=== PATIENT | female | born 1990 | race Caucasian/White ===

== ENCOUNTER 2021-02-04 12:17 | Emergency (ER) | payer SELFPAY ==
[2021-02-04 13:33] LABS: Urine Blood Negative (Negative); Urine Glucose Negative (Negative); Urine Protein Negative (Negative); Urine Specific Gravity 1.025 (1.005-1.030)
[2021-02-04] MEDS ORDERED: MORPHINE 4 MG/ML SYR ONE (13:36)
[2021-02-04] MEDS ORDERED: NA CHLORIDE 0.9% 1,000 ML ONE (13:36)
[2021-02-04] MEDS ORDERED: ONDANSETRON 4 MG/2 ML VIAL ONE (13:36)
[2021-02-04 13:49] LABS: Absolute Lymphocytes (CBC) 1.8 K/uL (0.7-4.9); Basophils % 0.5 % (0-1.3); Hematocrit 39.5 % (36.0-45.0); Lymphocytes % 23.1 % (15.3-44.8); MPV 9.5 fL (7.6-11.3); RBC Red Blood Cell Count 4.31 M/uL (3.86-4.86)
[2021-02-04 13:53] LABS: Urine Specific Gravity/Preg 1.025 (1.005-1.030)
--- NOTE | 2021-02-04 14:00 | RAD REPORT ---
EXAM DESCRIPTION: CT - Abdomen Pelvis W Contrast - 02/04/2021 1:46 pm CLINICAL HISTORY: Abdominal pain COMPARISON: none. TECHNIQUE: Computed axial tomography of the abdomen pelvis was obtained. 100 cc Isovue-300 was admin istered intravenously. Oral contrast was not requested which limits evaluation of bowel All CT scans are performed using dose optimization technique as appropriate and may include automated exposure control or mA/KV adjustment according to patient size. FINDINGS: Some of the images are degraded by respiratory motion artifact The liver, spleen, pancreas, adrenal and kidneys appear unremarkable. There is no evidence of diverticulitis. Normal appendix The wall of distal sigmoid colon and rectum appears thickened. No stool is present. However within th e more proximal sigmoid colon and the remainder of the colon there is a large amount stool. IMPRESSION: Thickening of the wall of the distal sigmoid colon and rectum having the appearance of i nflammation. There is a large amount of stool within the remainder of the colon. A mass is not seen w ithin the sigmoid colon but can be missed on CT. Close follow-up is recommended
[2021-02-04 14:04] LABS: ALT/SGPT 14 U/L (12-78); AST/SGOT 15 U/L (15-37); Albumin 3.8 g/dL (3.4-5.0); Alkaline Phosphatase 65 U/L (45-117); BUN Blood Urea Nitrogen 14 mg/dL (7-18); Bicarbonate 27 mmol/L (21-32); Bilirubin Direct < 0.1 mg/dL (0-0.2); Bilirubin Total 0.3 mg/dL (0.2-1.0); Glucose Level 93 mg/dL (74-106); Lipase 145 U/L (73-393); Protein, Total 7.2 g/dL (6.4-8.2); Sodium Level 142 mmol/L (136-145)
[2021-02-04] MEDS ORDERED: KETOROLAC 30 MG/ML INJ ONE (14:32)
--- NOTE | 2021-02-04 14:34 | ER ---
Nurse's Notes [facility] Name: Marcelina Dodson Age: 30 yrs Sex: Female : 1990 Arrival Date: 02/04/2021 Time: 12:19 Bed 16 Private MD: Diagnosis: Left sided colitis Presentation: 02/04 12:46 Chief complaint: Patient states: Lower abd pain for 2 weeks. +N/V with jell in stool. ll1 Coronavirus screen: Client denies travel out of the [place] in the last 14 days. At this time, the client does not indicate any symptoms associated with coronavirus-19. Ebola Screen: Patient denies travel to an Ebola-affected area in the 21 days before illness onset. Initial Sepsis Screen: Does the patient meet any 2 criteria? No. Patient's initial sepsis screen is negative. Does the patient have a suspected source of infection? Yes: Acute abdominal pain. Risk Assessment: Do you want to hurt yourself or someone else? Patient reports no desire to harm self or others. Onset of symptoms was January 22, 2022. 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 - Social history:: Smoking status: Patient reports the use of cigarette tobacco products, smokes one-half pack cigarettes per day. Screenin:50 Abuse screen: Denies threats or abuse. Nutritional screening: No deficits noted. tw2 Tuberculosis screening: No symptoms or risk factors identified. Fall Risk None identified. Assessment: 13:30 General: Appears uncomfortable, slender, well groomed, Behavior is calm, cooperative, tw2 appropriate for age. Pain: Complains of pain in abdomen. Neuro: Level of Consciousness is awake, alert, obeys commands, Oriented to person, place, time, situation. Cardiovascular: Patient's skin is warm and dry. Respiratory: Airway is patent Respiratory effort is even, unlabored, Respiratory pattern is regular, symmetrical. GI: Bowel sounds present X 4 quads. Abdomen is tender to palpation X 4 quads. : No signs and/or symptoms were reported regarding the genitourinary system. Musculoskeletal: Range of motion: intact in all extremities. 14:25 Reassessment: pt c/o no change in pain, provider notified, medicated as ordered. tw2 14:44 Reassessment: Patient appears in no apparent distress at this time. Patient and/or tw2 family updated on plan of care and expected duration. Pain level reassessed. Patient is alert, oriented x 3, equal unlabored respirations, skin warm/dry/pink. Patient states feeling better. Patient states symptoms have improved. Vital Signs: 12:46 BP 110 / 77; Pulse 78; Resp 16; Temp 98.5; Pulse Ox 100% ; Weight 58.97 kg; Height 5 ll1 ft. 4 in. (162.56 cm); Pain 10/10; 12:50 BP 140 / 90; Pulse 126; Resp 17; Pulse Ox 99% on R/A; tw2 13:50 BP 119 / 99; Pulse 133; Resp 17; Pulse Ox 97% on R/A; tw2 14:42 BP 118 / 88; Pulse 118; Resp 19; Pulse Ox 98% on R/A; tw2 12:46 Body Mass Index 22.31 (58.97 kg, 162.56 cm) ll1 ED Course: 12:19 Patient arrived in ED. wm 12:47 Triage completed. ll1 12:49 Arm band placed on Patient placed in an exam room, on a stretcher. ll1 12:50 Janet Humphreys, RN is Primary Nurse. tw2 12:50 Bed in low position. Call light in reach. Adult w/ patient. Pulse ox on. NIBP on. Warm tw2 blanket given. 13:01 Ange Bassett FNP-C is PHCP. kb 13:01 Juan Naylor MD is Attending Physician. kb 13:30 Inserted saline lock: 22 gauge in left antecubital area, using aseptic technique. Blood tw2 collected. 13:46 CT Abd/Pelvis - IV Contrast Only In Process Unspecified. EDMS 14:43 No provider procedures requiring assistance completed. IV discontinued, intact, tw2 bleeding controlled, No redness/swelling at site. Pressure dressing applied. Administered Medications: 13:30 Drug: Zofran (Ondansetron) 4 mg Route: IVP; Site: left antecubital; tw2 13:46 Follow up: Response: No adverse reaction tw2 13:32 Drug: morphine 4 mg {Note: rass 0.} Route: IVP; Site: left antecubital; tw2 13:46 Follow up: Response: No adverse reaction; Pain is unchanged, physician notified tw2 13:34 Drug: NS 0.9% 1000 ml Route: IV; Rate: 1000 ml; Site: left antecubital; tw2 14:36 Follow up: Response: No adverse reaction; IV Status: Completed infusion; IV Intake: tw2 1000ml 14:25 Drug: Ketorolac 15 mg Route: IVP; Site: Other; tr6 14:36 Follow up: Response: No adverse reaction; Pain is decreased tw2 14:35 Drug: Cipro (ciprofloxacin) 500 mg Route: PO; tw2 14:42 Follow up: Response: No adverse reaction tw2 14:36 Drug: Flagyl (metroNIDAZOLE) 500 mg Route: PO; tw2 14:42 Follow up: Response: No adverse reaction tw2 14:36 Drug: Bentyl (dicyclomine) 20 mg Route: PO; tw2 14:42 Follow up: Response: No adverse reaction tw2 14:36 Drug: Magnesium Citrate Liquid 300 ml Route: PO; tw2 14:41 Follow up: Response: No adverse reaction tw2 Intake: 14:36 IV: 1000ml; Total: 1000ml. tw2 Outcome: 14:33 Discharge ordered by MD. angel 14:43 Discharged to home ambulatory, with family. tw2 14:43 Condition: stable 14:43 Discharge instructions given to patient, family, Instructed on discharge instructions, follow up and referral plans. no drinking with medication, no driving heavy equipment, medication usage, Demonstrated understanding of instructions, follow-up care, medications, Prescriptions given X 4. 14:44 Patient left the ED. tw2 Signatures: Dispatcher [employer] EDAnge Delgado FNP-C FNP-Janet Cha RN RN tw2 Diana Salmeron RN RN ll1 Sarina Mc RN RN tr6 Annabella Wu
--- NOTE | 2021-02-04 14:34 | EDPHYS ---
Physician Documentation [facility] Name: Marcelina Dodson Age: 30 yrs Sex: Female : 1990 Arrival Date: 02/04/2021 Time: 12:19 Bed 16 Private MD: ED Physician Juan Naylor HPI: 02/04 13:16 This 30 yrs old Female presents to ER via Ambulatory with complaints of Abdominal Pain. kb 13:16 The patient presents with abdominal pain that is diffuse. Onset: The symptoms/episode kb began/occurred 3 day(s) ago. The symptoms do not radiate. Associated signs and symptoms: Pertinent positives: constipation, Pertinent negatives: nausea, vomiting, and diarrhea, fever. The symptoms are described as constant. Modifying factors: The symptoms are alleviated by nothing, the symptoms are aggravated by pressure. Severity of pain: At its worst the pain was moderate in the emergency department the pain is unchanged. The patient has experienced a previous episode. The patient has not recently seen a physician. Pt reports diffuse abd pain and constipation for a few days. States she has had this once before and was told she had inflammation in her intestines. Pt more comfortable in position, pain worse when supine. Denies fever, n/v/d. . 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 - Social history:: Smoking status: Patient reports the use of cigarette tobacco products, smokes one-half pack cigarettes per day. ROS: 13:15 Constitutional: Negative for fever, chills, and weight loss. kb 13:15 Abdomen/GI: Positive for abdominal pain, constipation, Negative for nausea, vomiting, and diarrhea. 13:15 All other systems are negative. Exam: 13:15 Constitutional: This is a well developed, well nourished patient who is awake, alert, kb and in no acute distress. Head/Face: Normocephalic, atraumatic. ENT: Moist Mucous membranes Cardiovascular: Regular rate and rhythm with a normal S1 and S2. No gallops, murmurs, or rubs. No pulse deficits. Respiratory: Respirations even and unlabored. No increased work of breathing, no retractions or nasal flaring. Skin: Warm, dry with normal turgor. Normal color. MS/ Extremity: Pulses equal, no cyanosis. Neurovascular intact. Full, normal range of motion. Neuro: Awake and alert, GCS 15, oriented to person, place, time, and situation. Moves all extremities. Normal gait. Psych: Awake, alert, with orientation to person, place and time. Behavior, mood, and affect are within normal limits. 13:15 Abdomen/GI: Inspection: abdomen appears normal, Bowel sounds: normal, in all quadrants, Palpation: soft, in all quadrants, mild abdominal tenderness, in the right upper quadrant and right lower quadrant, moderate abdominal tenderness, in the left upper quadrant and left lower quadrant. Vital Signs: 12:46 BP 110 / 77; Pulse 78; Resp 16; Temp 98.5; Pulse Ox 100% ; Weight 58.97 kg; Height 5 ll1 ft. 4 in. (162.56 cm); Pain 10/10; 12:50 BP 140 / 90; Pulse 126; Resp 17; Pulse Ox 99% on R/A; tw2 13:50 BP 119 / 99; Pulse 133; Resp 17; Pulse Ox 97% on R/A; tw2 14:42 BP 118 / 88; Pulse 118; Resp 19; Pulse Ox 98% on R/A; tw2 12:46 Body Mass Index 22.31 (58.97 kg, 162.56 cm) ll1 MDM: 13:01 Patient medically screened. kb 13:15 Data reviewed: vital signs, nurses notes. Data interpreted: Pulse oximetry: on room air kb is 100 %. Interpretation: normal. 14:31 Counseling: I had a detailed discussion with the patient and/or guardian regarding: the kb historical points, exam findings, and any diagnostic results supporting the discharge/admit diagnosis, lab results, radiology results, the need for outpatient follow up, a family practitioner, a long distance operator, to return to the emergency department if symptoms worsen or persist or if there are any questions or concerns that arise at home. ED course: Pt reports she is feeling much better after toradol and appears more comfortable. . 02/04 13:07 Order name: Basic Metabolic Panel; Complete Time: 14:10 kb 02/04 13:07 Order name: CBC with Diff; Complete Time: 13:53 kb 02/04 13:07 Order name: Hepatic Function; Complete Time: 14:10 kb 02/04 13:07 Order name: Lipase; Complete Time: 14:10 kb 02/04 13:32 Order name: Urine Dipstick-Ancillary; Complete Time: 13:39 EDMS 02/04 13:47 Order name: Urine --Ancillary (enter results) eb 02/04 13:07 Order name: CT Abd/Pelvis - IV Contrast Only; Complete Time: 14:10 kb 02/04 13:48 Order name: Urine --Ancillary; Complete Time: 13:54 EDMS 02/04 14:03 Order name: CREATININE WHOLE BLOOD; Complete Time: 14:10 EDMS 02/04 13:07 Order name: IV Saline Lock; Complete Time: 13:34 kb 02/04 13:07 Order name: Labs collected and sent; Complete Time: 13:34 kb 02/04 13:07 Order name: Urine Dipstick-Ancillary (obtain specimen); Complete Time: 13:34 kb 02/04 13:07 Order name: Urine Test (obtain specimen); Complete Time: 13:34 kb Administered Medications: 13:30 Drug: Zofran (Ondansetron) 4 mg Route: IVP; Site: left antecubital; tw2 13:46 Follow up: Response: No adverse reaction tw2 13:32 Drug: morphine 4 mg {Note: rass 0.} Route: IVP; Site: left antecubital; tw2 13:46 Follow up: Response: No adverse reaction; Pain is unchanged, physician notified tw2 13:34 Drug: NS 0.9% 1000 ml Route: IV; Rate: 1000 ml; Site: left antecubital; tw2 14:36 Follow up: Response: No adverse reaction; IV Status: Completed infusion; IV Intake: tw2 1000ml 14:25 Drug: Ketorolac 15 mg Route: IVP; Site: Other; tr6 14:36 Follow up: Response: No adverse reaction; Pain is decreased tw2 14:35 Drug: Cipro (ciprofloxacin) 500 mg Route: PO; tw2 14:42 Follow up: Response: No adverse reaction tw2 14:36 Drug: Flagyl (metroNIDAZOLE) 500 mg Route: PO; tw2 14:42 Follow up: Response: No adverse reaction tw2 14:36 Drug: Bentyl (dicyclomine) 20 mg Route: PO; tw2 14:42 Follow up: Response: No adverse reaction tw2 14:36 Drug: Magnesium Citrate Liquid 300 ml Route: PO; tw2 14:41 Follow up: Response: No adverse reaction tw2 Disposition: 17:13 Co-signature as Attending Physician, Juan Naylor MD I agree with the assessment and kdr plan of care. Disposition Summary: 02/04/21 14:33 Discharge Ordered Location: Home kb Condition: Stable kb Diagnosis - Left sided colitis kb Followup: kb - With: Emergency Department - When: As needed - Reason: Worsening of condition Followup: kb - With: Private Physician - When: 2 - 3 days - Reason: Recheck today's complaints, Continuance of care, Re-evaluation by your physician Discharge Instructions: - Discharge Summary Sheet kb - Colitis kb Forms: - Medication Reconciliation Form kb - Thank You Letter kb - Antibiotic Education kb - Prescription Opioid Use kb Prescriptions: - Cipro 500 mg Oral Tablet - take 1 tablet by ORAL route every 12 hours for 10 days; 20 tablet; Refills: 0, kb Product Selection Permitted - Flagyl 500 mg Oral Tablet - take 1 tablet by ORAL route every 8 hours for 10 days; 30 tablet; Refills: 0, kb Product Selection Permitted - Diclofenac Sodium 75 mg Oral tablet,delayed release (DR/EC) - take 1 tablet by ORAL route 2 times per day As needed; 30 tablet; Refills: 0, kb Product Selection Permitted - dicyclomine 20 mg Oral Tablet - take 1 tablet by ORAL route 4 times per day As needed; 20 tablet; Refills: 0, kb Product Selection Permitted Signatures: Dispatcher [employer] Ange Apple, NICOLE-C NICOLE-Juan Blackwood MD MD kdr Janet Humphreys RN RN tw2 Diana Salmeron RN RN ll1 Sarina Mc, RN RN tr6
[2021-02-04] MEDS ORDERED: metroNIDAZOLE 500 MG TABLET ONE (14:53)
[2021-02-04] MEDS ORDERED: MAGNESIUM CITRATE 300 ML BOT ONE (14:53)
[2021-02-04] MEDS ORDERED: CIPROFLOXACIN HCL 500 MG TAB ONE (14:53)
[2021-02-04] MEDS ORDERED: DICYCLOMINE HCL 10 MG CAP ONE (14:53)
[2021-02-04 15:10] VITALS: TEMP 98.5
[2021-02-04 15:20] VITALS: BP 118/88; O2SAT 98
== END 2021-02-04 14:44 | disposition home or self-care (01) ==
LOC: ER 12:17
DX: K51.50 Left sided colitis without complications (principal); F17.210 Nicotine dependence, cigarettes, uncomplicated; Z88.5 Allergy status to narcotic agent
CPT/HCPCS: 36415; 74177; 80048; 80076; 81003; 81025; 82565; 83690; 85025; 99284; J2405; J7030; Q9967

== ENCOUNTER 2021-04-17 13:33 | Emergency (ER) | payer SELFPAY ==
[2021-04-17 14:26] LABS: Urine Blood Negative (Negative); Urine Glucose Negative (Negative); Urine Protein 1+ (Negative); Urine Specific Gravity >=1.030 (1.005-1.030); Urine pH 5.5 (5.0-7.0)
[2021-04-17 14:26] LABS: Absolute Lymphocytes (CBC) 0.8 K/uL (0.7-4.9); Basophils % 0.6 % (0-1.3); Lymphocytes % 33.2 % (15.3-44.8); MPV 9.1 fL (7.6-11.3); RBC Red Blood Cell Count 4.42 M/uL (3.86-4.86)
[2021-04-17 14:44] LABS: Potassium 3.8 mmol/L (3.5-5.1)
[2021-04-17 14:49] LABS: ALT/SGPT 16 U/L (12-78); AST/SGOT 23 U/L (15-37); Albumin 4.1 g/dL (3.4-5.0); Alkaline Phosphatase 54 U/L (45-117); Amylase 63 U/L (25-115); Bilirubin Direct 0.1 mg/dL (0-0.2); Bilirubin Total 0.3 mg/dL (0.2-1.0); Creatine Phosphokinase 212 U/L (26-192); Lipase 237 U/L (73-393); Protein, Total 7.2 g/dL (6.4-8.2); Troponin (Emerg Dept Use Only) < 0.02 ng/mL (0.0-0.045)
[2021-04-17 14:51] LABS: Protime INR 1.04
[2021-04-17 14:54] LABS: CKMB Creatine Kinase MB < 1.0 ng/mL (1.0-3.6)
[2021-04-17 15:10] LABS: Urine Amorphous Sediment 3+ /HPF (NONE SEEN); Urine Bacteria 20-50 /HPF (<20); Urine Mucus 3+ /HPF (NONE SEEN); Urine RBC <5 /HPF (NONE SEEN)
[2021-04-17 15:33] LABS: Blood Morphology Comment NOT SEEN (NOT SEEN); Platelet Estimate DECR; White Blood Cell Scan OK (OK)
--- NOTE | 2021-04-17 15:33 | RAD REPORT ---
EXAM DESCRIPTION: Zandra Single View04/17/2021 3:21 pm CLINICAL HISTORY: cough COMPARISON: none FINDINGS: Lungs are hyperaerated. The lungs appear clear of acute infiltrate. The heart is normal size
[2021-04-17] MEDS ORDERED: NA CHLORIDE 0.9% 1,000 ML ONE (15:46)
--- NOTE | 2021-04-17 16:10 | ER ---
Nurse's Notes [facility] Name: Marcelina Dodson Age: 30 yrs Sex: Female : 1990 Arrival Date: 04/17/2021 Time: 13:36 Bed 5 Private MD: Diagnosis: Coronavirus infection, unspecified;UTI/ Urinary tract infection, site not specified Presentation: 04/17 13:53 Chief complaint: Patient states: fever up to 105.4*F that began 2 days ago, pt states aa5 "I took 800mg Ibuprofen and 2 Tylenol to bring the fever down". Pt reports burning with urination and urgency. Pt also reports cough that began 2 days ago. Pt states "my hands are swollen and they keep going numb". Pt also reports body aches. Coronavirus screen: cough unrelated to allergies, fever. Ebola Screen: Patient denies exposure to infectious person. Initial Sepsis Screen: Does the patient meet any 2 criteria? HR > 90 bpm. Does the patient have a suspected source of infection? Yes:. Risk Assessment: Do you want to hurt yourself or someone else? Patient reports no desire to harm self or others. Onset of symptoms was April 2021. 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 - Social history:: Smoking status: Patient reports the use of cigarette tobacco products, smokes one-half pack cigarettes per day. Screenin:30 Abuse screen: Denies threats or abuse. Nutritional screening: No deficits noted. ll1 Tuberculosis screening: No symptoms or risk factors identified. Fall Risk None identified. Assessment: 15:37 General: Appears uncomfortable, well groomed, Behavior is calm, cooperative, anxious. ll1 Pain: Pain does not radiate. Pain began 2-3 days ago. Cardiovascular: No deficits noted. Respiratory: No deficits noted. GI: nausea. Musculoskeletal: Reports numbness in right hand and left hand pt reports generalized body pain 10/10, states she has had body aches x 2 days, would like to have something for the pain. 16:32 Reassessment: No changes from previously documented assessment. Patient and/or family ll1 updated on plan of care and expected duration. Pain level reassessed. Vital Signs: 13:53 BP 104 / 71; Pulse 94; Resp 18 S; Temp 98.2(O); Pulse Ox 100% on R/A; Weight 58.06 kg aa5 (R); Height 5 ft. 4 in. (162.56 cm) (R); 16:28 BP 99 / 65; Pulse 69; Resp 16; ll1 13:53 Body Mass Index 21.97 (58.06 kg, 162.56 cm) aa5 ED Course: 13:36 Patient arrived in ED. as 13:46 Arm band placed on. aa5 13:56 Triage completed. aa5 14:13 Initial lab(s) drawn, by me, sent to lab. Inserted saline lock: 20 gauge in left aa5 antecubital area, using aseptic technique. Blood collected. 15:10 Ange Bassett FNP-C is PHCP. kb 15:10 Juan Naylor MD is Attending Physician. kb 15:19 Diana Salmeron, RHONA is Primary Nurse. ll1 15:21 Chest Single View XRAY In Process Unspecified. EDMS 15:22 Patient placed in an exam room, on a stretcher. ll1 16:29 No provider procedures requiring assistance completed. IV discontinued, intact, ll1 bleeding controlled, No redness/swelling at site. Pressure dressing applied. Patient maintains SpO2 saturation greater than 95% on room air. 16:31 Patient has correct armband on for positive identification. Bed in low position. Call ll1 light in reach. NIBP on. family at bedside. 16:35 COVID-19 : Document "Date of Symptom Onset" if Symptomatic. Sent. ll1 Administered Medications: 15:35 Drug: NS 0.9% 1000 ml Route: IV; Rate: 1000 ml; Site: left antecubital; 1 16:35 Follow up: IV Status: Completed infusion; IV Intake: 1000ml ll 16:11 Drug: Reglan (metoCLOPramide) 10 mg Route: IVP; Site: left antecubital; ll1 16:34 Follow up: Response: No adverse reaction; RASS: Alert and Calm (0) 1 16:11 Drug: Benadryl (diphenhydrAMINE) 12.5 mg Route: IVP; Site: left antecubital; ll1 16:34 Follow up: Response: No adverse reaction ll1 16:11 Drug: Rocephin (cefTRIAXone) 1 grams Route: IV; Rate: calculated rate; Site: left ll1 antecubital; 16:33 Follow up: Response: No adverse reaction; IV Status: Completed infusion; IV Intake: [id number] 16:12 Drug: Ketorolac 15 mg Route: IVP; Site: left antecubital; ll1 16:34 Follow up: Response: No adverse reaction ll1 Intake: 16:33 IV: 10ml; Total: 10ml. ll1 16:35 IV: 1000ml; Total: 1010ml. ll1 Outcome: 16:10 Discharge ordered by . kb 16:30 Discharged to home ambulatory. ll1 16:30 Condition: stable 16:30 Discharge instructions given to patient, family, Instructed on discharge instructions, follow up and referral plans. medication usage, Demonstrated understanding of instructions, follow-up care, medications, worsening of symptoms. Prescriptions given X 1. 16:36 Patient left the ED. ll1 Signatures: Dispatcher [employer] EDMS Ange Bassett, INSTRUMENT PERSON-C NICOLE-Macrina Geronimo Audri RN RN aa5 Diana Salmeron RN RN ll1
--- NOTE | 2021-04-17 16:11 | EDPHYS ---
Physician Documentation [facility] Name: Marcelina Dodson Age: 30 yrs Sex: Female : 1990 Arrival Date: 04/17/2021 Time: 13:36 Bed 5 Private MD: ED Physician Juan Naylor HPI: 04/17 16:25 This 30 yrs old Female presents to ER via Ambulatory with complaints of kb Fever, Chest Pain, Cough, Hand Swelling. 16:25 The patient or guardian reports cough, that is intermittent, described as mild, flu kb symptoms, low-grade fever, myalgias. Onset: The symptoms/episode began/occurred 2 day(s) ago. Severity of symptoms: At their worst the symptoms were moderate, in the emergency department the symptoms are unchanged. Modifying factors: The symptoms are alleviated by nothing, the symptoms are aggravated by nothing. Associated signs and symptoms: Pertinent positives: fever. The patient has not experienced similar symptoms in the past. The patient has not recently seen a physician. Pt reports cough, headache, bodyaches, fever for 2 days. Was recently exposed to covid by multiple people at a , as well as her brother. 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 - Social history:: Smoking status: Patient reports the use of cigarette tobacco products, smokes one-half pack cigarettes per day. ROS: 16:22 Cardiovascular: Negative for chest pain, palpitations, and edema. kb 16:22 Constitutional: Positive for body aches, chills, fatigue, fever, malaise. 16:22 Respiratory: Positive for cough, Negative for dyspnea on exertion, hemoptysis, orthopnea, pleurisy, shortness of breath, sputum production, wheezing. 16:22 : Positive for burning with urination. 16:22 Neuro: Positive for headache. 16:22 All other systems are negative. Exam: 16:23 Constitutional: This is a well developed, well nourished patient who is awake, alert, kb and in no acute distress. Head/Face: Normocephalic, atraumatic. ENT: Moist Mucous membranes Respiratory: Respirations even and unlabored. No increased work of breathing, no retractions or nasal flaring. Skin: Warm, dry with normal turgor. Normal color. MS/ Extremity: Pulses equal, no cyanosis. Neurovascular intact. Full, normal range of motion. Neuro: Awake and alert, GCS 15, oriented to person, place, time, and situation. Moves all extremities. Normal gait. Psych: Awake, alert, with orientation to person, place and time. Behavior, mood, and affect are within normal limits. 16:23 Abdomen/GI: Inspection: abdomen appears normal, Palpation: soft, in all quadrants, mild abdominal tenderness, in the right lower quadrant. Vital Signs: 13:53 BP 104 / 71; Pulse 94; Resp 18 S; Temp 98.2(O); Pulse Ox 100% on R/A; Weight 58.06 kg aa5 (R); Height 5 ft. 4 in. (162.56 cm) (R); 16:28 BP 99 / 65; Pulse 69; Resp 16; ll1 13:53 Body Mass Index 21.97 (58.06 kg, 162.56 cm) aa5 MDM: 15:28 Patient medically screened. kb 16:09 Data reviewed: vital signs, nurses notes. Data interpreted: Pulse oximetry: on room air kb is 100 %. Interpretation: normal. Counseling: I had a detailed discussion with the patient and/or guardian regarding: the historical points, exam findings, and any diagnostic results supporting the discharge/admit diagnosis, lab results, radiology results, the need for outpatient follow up, a family practitioner, to return to the emergency department if symptoms worsen or persist or if there are any questions or concerns that arise at home. 04/17 13:58 Order name: COVID-19 : Document "Date of Symptom Onset" if Symptomatic. 04/17 14:00 Order name: CBC with Diff; Complete Time: 15:34 04/17 14:00 Order name: Chem 7; Complete Time: 14:57 04/17 14:02 Order name: Amylase, Serum 04/17 14:02 Order name: Blood Culture Adult (2) 04/17 14:02 Order name: CPK; Complete Time: 14:57 04/17 14:02 Order name: Ckmb; Complete Time: 14:57 [facility] 04/17 14:02 Order name: LFT's; Complete Time: 14:57 [facility] 04/17 14:02 Order name: Lactate; Complete Time: 14:57 [facility] 04/17 14:02 Order name: Lipase; Complete Time: 14:57 [facility] 04/17 14:02 Order name: Procalcitonin; Complete Time: 15:33 [facility] 04/17 14:02 Order name: Protime (+inr); Complete Time: 14:57 [facility] 04/17 14:02 Order name: Ptt, Activated; Complete Time: 14:57 [facility] 04/17 14:02 Order name: Troponin (emerg Dept Use Only); Complete Time: 14:57 [facility] 04/17 14:02 Order name: Urine Microscopic Only; Complete Time: 15:13 [facility] 04/17 14:02 Order name: Chest Single View XRAY; Complete Time: 15:34 [facility] 04/17 14:03 Order name: Amylase; Complete Time: 14:57 [facility] 04/17 14:09 Order name: Flu; Complete Time: 15:28 [facility] 04/17 14:25 Order name: Urine Dipstick-Ancillary; Complete Time: 14:57 [facility] 04/17 14:25 Order name: Urine --Ancillary (enter results) 04/17 14:26 Order name: Urine --Ancillary; Complete Time: 15:04 [facility] 04/17 15:10 Order name: Urine Culture [facility] 04/17 15:33 Order name: CBC Smear Scan; Complete Time: 15:34 [facility] 04/17 16:09 Order name: SARS-COV-2 RT PCR; Complete Time: 16:11 [facility] 04/17 13:59 Order name: Urine Dipstick-Ancillary (obtain specimen); Complete Time: 14:25 [facility] 04/17 13:59 Order name: Urine Test (obtain specimen); Complete Time: 14:25 [facility] 04/17 14:02 Order name: IV Saline Lock - Large Bore; Complete Time: 14:13 [facility] 04/17 14:02 Order name: Labs collected and sent; Complete Time: 14:13 [facility] 04/17 15:45 Order name: Vital Signs; Complete Time: 16:35 kb Administered Medications: 15:35 Drug: NS 0.9% 1000 ml Route: IV; Rate: 1000 ml; Site: left antecubital; ll1 16:35 Follow up: IV Status: Completed infusion; IV Intake: 1000ml ll1 16:11 Drug: Reglan (metoCLOPramide) 10 mg Route: IVP; Site: left antecubital; ll1 16:34 Follow up: Response: No adverse reaction; RASS: Alert and Calm (0) ll1 16:11 Drug: Benadryl (diphenhydrAMINE) 12.5 mg Route: IVP; Site: left antecubital; ll1 16:34 Follow up: Response: No adverse reaction ll1 16:11 Drug: Rocephin (cefTRIAXone) 1 grams Route: IV; Rate: calculated rate; Site: left ll1 antecubital; 16:33 Follow up: Response: No adverse reaction; IV Status: Completed infusion; IV Intake: [id number] 16:12 Drug: Ketorolac 15 mg Route: IVP; Site: left antecubital; ll1 16:34 Follow up: Response: No adverse reaction ll1 Disposition: 19:30 Co-signature as Attending Physician, Juan Naylor MD I agree with the assessment and kdr plan of care. Disposition Summary: 04/17/21 16:10 Discharge Ordered Location: Home kb Condition: Stable kb Diagnosis - Coronavirus infection, unspecified kb - UTI/ Urinary tract infection, site not specified kb Followup: kb - With: Emergency Department - When: As needed - Reason: Worsening of condition Followup: kb - With: Private Physician - When: 2 - 3 days - Reason: Recheck today's complaints, Continuance of care, Re-evaluation by your physician Discharge Instructions: - Discharge Summary Sheet kb - Urinary Tract Infection, Adult, [id number] kb - COVID-19 kb Forms: - Medication Reconciliation Form kb - Thank You Letter kb - Antibiotic Education kb - Prescription Opioid Use kb Prescriptions: - Macrobid 100 mg Oral Capsule - take 1 capsule by ORAL route every 12 hours for 7 days; 14 capsule; Refills: 0, kb Product Selection Permitted Signatures: Dispatcher [employer] EDAnge Delgado, Juan Callahan MD MD kdr Calderon, Audri RN RN aa5 Diana Salmeron RN RN ll1 Corrections: (The following items were deleted from the chart) 15:15 13:59 CORONAVIRUS ordered. EDMS EDMS 16:14 15:39 Abdomen Pelvis W Con+CT.RAD.BRZ ordered. EDMS EDMS 16:24 16:23 Abdomen/GI: Inspection: abdomen appears normal, Bowel sounds: normal, Palpation: kb soft, in all quadrants, mild abdominal tenderness, in the right lower quadrant, kb
[2021-04-17] MEDS ORDERED: METOCLOPRAMIDE 10 MG/2mL INJ ONE (16:14)
[2021-04-17] MEDS ORDERED: CEFTRIAXONE 1000 MG/VIAL ONE (16:14)
[2021-04-17] MEDS ORDERED: DIPHENHYDRAMINE 50 MG/ML VIAL ONE (16:14)
[2021-04-17] MEDS ORDERED: KETOROLAC 30 MG/ML INJ ONE (16:15)
[2021-04-17 17:18] VITALS: TEMP 98.2; O2SAT 100
[2021-04-17 17:19] VITALS: BP 99/65
== END 2021-04-17 16:36 | disposition home or self-care (01) ==
LOC: ER 13:33
DX: U07.1 COVID-19 (principal); N39.0 Urinary tract infection, site not specified; F17.210 Nicotine dependence, cigarettes, uncomplicated; Z88.5 Allergy status to narcotic agent
CPT/HCPCS: 36415; 71045; 80048; 80076; 81003; 81015; 81025; 82150; 82550; 82553; 83605; 83690; 84145; 84484; 85025; 85610; 85730; 87040; 87086; 87088; 87804; 96361; 96365; 96375; 99284; J1200; J2765; J7030; U0003

== ENCOUNTER 2022-04-17 20:20 | Emergency (ER) | payer SELFPAY ==
--- OUTSIDE RECORDS SUMMARY | 2022-04-17 20:26 | XMS REPORT | Continuity of Care Document ---
:1990 Author Organization [facility] t Address [address] [place] [address] Care Team Providers Name Role Phone ELIE NASH Primary Care Physician Unavailable JULI CESPEDES Attending Clinician Unavailable Tatum Shabazz Attending Clinician Abdulaziz Epstein MD Attending Clinician Nancy Hicks MD Attending Clinician [phone] Juli Cespedes MD Attending Clinician Marc JHAVERI Attending Clinician Unavailable Marc Shaw Attending Clinician Tania Hatch Attending Clinician Greta Subramanian Attending Clinician Pcp, Patient Does Not Have A Attending Clinician [phone] UNKNOWN, ATTENDING Attending Clinician Unavailable TABITHA REED Attending Clinician Unavailable thomas Attending Clinician Unavailable Nancy Hicks MD Admitting Clinician [phone] NANCY HICKS Admitting Clinician Unavailable thomas Admitting Clinician Unavailable Payers Payer Name Policy Type Policy Number Effective Date Expiration Date Orion acosta [id number] 2015 University o f [id number] 00:00:00 [place] [facility] 5-PresentP O Branch [address] [place] [address] [id number] Problems Condition Condition Condition Status Onset Resolution Last Treating Co mments Source Name Details Category Date Date Treatment Clinician Date Bradycardi Bradycardi Disease Active U nivers a a 9-11 ity of 00:00: Medical Branch Hypotensio Hypotensio Disease Active U nivers n n - ity of 00:00: Medical Branch Hypothyroi Hypothyroi Disease Active U nivers dism dism - ity of 00:00: [place] [facility] Elevated Elevated Disease Active Unive rs brain brain 04-11 ity of natriureti natriureti 00:[place] c peptide c peptide 00 Medi jai (BNP) (BNP) Branch level level Cigarette Cigarette Disease Active Uni vers smoker smoker 04-11 ity of 00:00: Medical Branch Syncope, Syncope, Disease Active Unive rs unspecifie unspecifie 04-10 it y of d syncope d syncope 00:[place] type type 00 [place] No known No known Disease Unive rs active active ity of problems problems [facility] Allergies, Adverse Reactions, Alerts Allergy Allergy Status Severity Reaction(s) Onset Inactive Treating Comm ents Source Name Type Date Date Clinician DEXTROAM DRUG Active Other-Cmnt Univ ers PHETAMIN 9-10 ity of E-AMPHET 00:00: [place] AMINE 00 Medical Branch Dextroam Propensi Active Other - See U nivers phetamin ty to comments 9-10 ity of e-Amphet adverse 00:00: [place] amine reaction 00 Medical s Branch TRAMADOL DRUG Active Rash Univers INGREDI - ity of 00:00: [place] [facility] Tramadol Propensi Active Rash Univer s ty to - ity of adverse 00:00: [place] reaction 00 Medical s Branch NO KNOWN Drug Active Univers ALLERGIE Class ity of S [facility] Social History Social Habit Start Date Stop Date Quantity Comments Source History of tobacco Passive smoker Un iversity of use [facility] Cigarettes smoked 2022-04-13 2022-04-13 Univers ity of current (pack per 00:00:00 00:00:00 [place] ) - Reported Branch Tobacco use and 2022-04-13 2022-04-13 Smokeless Universit y of exposure 00:00:00 00:00:00 tobacco non-user [facility] Alcohol intake 2022-04-13 2022-04-13 0 /d University of 00:00:00 00:00:00 [facility] Exposure to 2022-03-31 2022-04-10 Not sure [facility] SARS-CoV-2 (event) 00:00:00 08:34:00 [facility] Sex Ass[birth year] At [birth year] Universit y of 00:00:00 00:00:00 [facility] Smoking Status Start Date Stop Date Source Smokes tobacco daily 2022-04-13 00:00:00 Univers ity of [facility] Medications Ordered Filled Start Stop Current Ordering Indication Dosage Frequency Signature Comments Components Source Medication Medication Date Date Medication? Clinician (SIG) Name Name levothyroxi Yes [id number] 100ug Take 1 Univers ne 100 mcg 17 tablet by ity of tablet 00:00: mouth [place] 00 every Medical morning. Branch amphetamine Yes 25mg Take 25 mg Univers -dextroamph 16 by mouth ity of etamine 11:43: every [place] (ADDERALL 45 morning. Medica l XR) 25 mg Branch 24 hr capsule ketorolac No 30mg 30 mg, Unive rs (TORADOL) 04-16 Slow IV ity of injection 03:45: 02:55 Push, [place] 30 mg 00 :00 ONCE, 1 Medical dose, On Branch Alivia 04/15/22 at 2245, Routine NaCl 0.9% No 1000mL at 250 Uni vers (NS) bolus 04-15 09-15 mL/hr, ity of infusion 21:00: 21:30 1,000 mL, [place] 1,000 mL 00 :36 IV Medical Piggyback, Branch ONCE, 1 dose, On [place] 04/15/22 at 1600, FLY ketorolac 2021- No 30mg 30 mg, Unive rs (TORADOL) 04-15 Slow IV ity of injection 18:45: 18:02 Push, [place] 30 mg 00 :00 ONCE, 1 Medical dose, On Branch Alivia 04/15/22 at 1345, Routine pantoprazol Yes 40mg 40 mg, Univ ers e 04-15 Oral, ity of (PROTONIX) 17:30: DAILY, [place] EC tablet 00 First dose Medi jai 40 mg on Alivia Branch 04/15/22 at 1230, Until Discontinu ed, Routine gadobenate 2021- No [id number] .2mL/kg 11.3 mL Univers dimeglumine 04-15 (0.2 mL/kg i ty of (MULTIHANCE 16:00: 15:36 ?56.5 kg), [place] -20 mL) 00 :00 Intravenou Medica l injection s, ONCE, 1 Bran ch 11.3 mL dose, On [place] 04/15/22 at 1100, Routine acetaminoph Yes 1{tbl} 1 tablet, Univers en-codeine 04-15 Oral, ity of (TYLENOL 12:30: Q4HPRN, [place] #3) 300-30 26 Starting Medic al mg tablet 1 on Alivia Branch tablet 04/15/22 at 0730, Until Discontinu ed, Routine, Pain (scale 4-6) HYDROcodone Yes 1{tbl} 1 tablet, Univers -acetaminop 04-15 Oral, ity of hen (NORCO 12:30: Q4HPRN, [place] 5) 5-325 mg 16 Starting Medi jai tablet 1 on [place] Branch tablet 04/15/22 at 0730, Until Discontinu ed, Routine, Pain (scale 7-10) sennosides- Yes 1{tbl} 1 tablet, Univers docusate 04-15 Oral, ity of sodium 02:00: DAILY, [place] (SENOKOT-S) 00 First dose Me dical 8.6-50 mg on Tue per tablet 04/14/22 at 1 tablet 2100, Until Discontinu ed, Routine ketorolac 2021- No 30mg 30 mg, Unive rs (TORADOL) 04-14 Slow IV ity of injection 20:45: 20:48 Push, [place] 30 mg 00 :00 ONCE, 1 Medical dose, On Branch Tue04/14/22 at 1545, Routine lactated 2021- No 1000mL at 999 Univ ers ringers IV 04-14 mL/hr, ity of infusion 18:00: 18:00 1,000 mL, [place] 1,000 mL 00 :00 Intravenou Medic al s, ONCE, 1 Branch dose, On Tue04/14/22 at 1300, Routine polyethylen 2021- No 17g 17 g, [facility] ers e glycol 04-14 Oral, ity of 3350 powder 14:00: 01:50 DAILY, [place] as 17 g 00 :52 First dose Medical on Tue04/14/22 at 0900, Until Discontinu ed, Routine magnesium No 4g 4 g, IV [facility] ers sulfate in 04-14 Piggyback, it y of water 4 13:30: 14:00 ONCE, 1 [place] gram/50 mL 00 :00 dose, On Medic al (8 %) IV Tue Piggyback 4 04/14/22 at g 0830, Routine KCL 2021- No 40meq 40 mEq, Univers (KLOR-CON 04-14 Oral, ity of M20) tablet 13:30: 13:19 ONCE, 1 [place] 40 mEq 00 :00 dose, On Medical Tue Branch 04/14/22 at 0830, Routine cyclobenzap Yes 10mg 10 mg, Univ ers rine 04-13 Oral, TID, ity of (FLEXERIL) 19:00: First dose [place] tablet 10 00 (after Medical mg last Branch modificati on) on Tue04/13/22 at 1400, Until Discontinu ed, Routine levothyroxi Yes 100ug 100 mcg, U nivers ne 04-13 Oral, ity of (SYNTHROID) 11:00: QAM-0600, [place] tablet 100 00 First dose Med ical mcg (after Branch last modificati on) on Tue04/13/22 at 0600, Until Discontinu ed, Routine cyclobenzap No 5mg 5 mg, Univ ers rine 04-12 Oral, TID, ity of (FLEXERIL) 16:45: 17:51 First dose [place] tablet 5 mg 00 :10 on Mon Medica l 04/12/22 at Branch 1145, Until Discontinu ed, Routine DOPamine No 2.5ug/k 2.5-7.5 Un jg 800 mg/500 04-12 g/min mcg/kg/min i ty of mL (1,600 16:30: 01:51 ?55.5 kg [place] mcg/mL) 55 :19 ( Medica l infusion .6094 [place] RTU mL/hr, rounded to 5.2-15.61 mL/hr), IV Infusion, TITRATE, Target SBP > 90, OK to keep HR > 40 if SBP at target and patient comfortabl e, Starting on Tue04/12/22 at 1130
In itiate infusion at 2.5 mcg/kg/min . &nb sp;Increas e by 2.5 mcg/kg/min every 1 minute to 5 minutes as needed to reach and maintain goal blood pressure.& nbsp;&nbsp ;Maximum dose = 20 mcg/kg/min . If goal not maintained at maximum allowed dose, contact prescriber . &nb sp;Adminis ter only one peripheral intravenou s vasopresso r at a time.
lidocaine No 5mL 5 mL, Univer s 1% (PF) 04-12 Subcutaneo ity o f (XYLOCAINE) 16:30: 17:45 us, ONCE, [place] injection 5 00 :00 1 dose, On Me dical mL Tue04/12/22 at 1130, Routine NaCl 0.9% Yes 10mL 10 mL, Univer s (NS) 04-12 Slow IV ity of injection 16:20: Push, PRN, [place] 10 mL 14 Starting Medical on Tue04/12/22 at 1120, Until Discontinu ed, Routine, line maintenanc e morpHINE (2 2021- No 2mg 2 mg, Slow Univers mg/mL) 04-12 IV Push, ity of injection 2 14:49: 12:30 Q6HPRN, [place] mg 56 :42 Starting Medical on [facility] Branch 04/12/22 at 0949, Until Alivia 04/15/22 at 0730, Routine, Pain (scale 7-10) HYDROcodone 2021- No 1{tbl} 1 tablet, Univers -acetaminop 04-12 Oral, ity of hen (NORCO 14:49: 12:30 Q4HPRN, [place] 5) 5-325 mg 30 :42 Starting Medi jai tablet 1 on [facility] Branch tablet 04/12/22 at 0949, Until Alivia 04/15/22 at 0730, Routine, Pain (scale 4-6) cholecalcif Yes 2000U 2,000 Univ ers genevieve 04-12 Units, ity of (vitamin 14:00: Oral, [place] D3) tablet 00 DAILY, Medical 2,000 Units First dose Br anch (after last modificati on) on Tue04/12/22 at 0900, Until Discontinu ed, Routine thiamine Yes 100mg 100 mg, Unive rs (VITAMIN 04-12 Oral, ity of B1) tablet 14:00: DAILY, [place] 100 mg 00 First dose Medical on [facility] Branch 04/12/22 at 0900, Until Discontinu ed, Routine levothyroxi 2021- No 100ug 100 mcg, Univers ne 04-12 Intravenou ity of (SYNTHROID) 13:45: 13:52 s, ONCE, 1 [place] injection 00 :00 dose, On Medica l 100 mcg [facility] Branch 04/12/22 at 0845, Routine levothyroxi No 50ug 50 mcg, Un jg ne 04-12 Oral, ity of (SYNTHROID) 11:00: 16:20 QAM-0600, [place] tablet 50 00 :48 First dose Medi jai mcg (after Branch last modificati on) on [facility] 04/12/22 at 0600, Until Discontinu ed, Routine morpHINE (2 No 2mg 2 mg, Slow Univers mg/mL) 04-12 IV Push, ity of injection 2 09:14: 09:27 PRN, 1 [place] mg 26 :00 dose, Medical Starting Branch on [facility] 04/12/22 at 0414, Until Tue04/12/22 at 0427, Routine, headache DOPamine 2021- No 2.5ug/k 2.5-7.5 Un jg 800 mg/500 04-12 g/min mcg/kg/min i ty of mL (1,600 02:53: 16:32 ?55.5 kg [place] mcg/mL) 09 :25 ( Medica l infusion .6094 Branch RTU mL/hr, rounded to 5.2-15.61 mL/hr), IV Infusion, TITRATE, SBP Goal 100-140 mmHg, HR > 60, Starting on [place] 04/11/22 at 2153
In itiate infusion at 2.5 mcg/kg/min . &nb sp;Increas e by 2.5 mcg/kg/min every 1 minute to 5 minutes as needed to reach and maintain goal blood pressure.& nbsp;&nbsp ;Maximum dose = 20 mcg/kg/min . If goal not maintained at maximum allowed dose, contact prescriber . &nb sp;Adminis ter only one peripheral intravenou s vasopresso r at a time.
ibuprofen 2021- No 600mg 600 mg, Uni vers (IBU) 04-12 Oral, ity of tablet 600 02:52: 15:41 TIDPRN, [place] mg 32 :06 Starting Medical on [place] Branch 04/11/22 at 2152, Until [facility] 04/12/22 at 1041, Routine, Pain (scale 1-3) DOPamine 2021- No 2.5ug/k 2.5-7.5 Un jg 800 mg/500 04-12 g/min mcg/kg/min i ty of mL (1,600 02:39: 02:53 ?55.5 kg [place] mcg/mL) 25 :28 ( Medica l infusion .6094 Branch RTU mL/hr, rounded to 5.2-15.61 mL/hr), IV Infusion, TITRATE, SBP Goal 100-140 mmHg, HR > 60, Starting on Tue04/11/22 at 2139
In itiate infusion at 2.5 mcg/kg/min . &nb sp;Increas e by 2.5 mcg/kg/min every 1 minute to 5 minutes as needed to reach and maintain goal blood pressure.& nbsp;&nbsp ;Maximum dose = 7.5 mcg/kg/min . If goal not maintained at maximum allowed dose, contact prescriber . &nb sp;Adminis ter only one peripheral intravenou s vasopresso r at a time.
hydrocortis No 50mg 50 mg, Uni vers one sod 04-11 Intravenou ity o f succ 22:00: 09:27 s, Q6H, 3 [place] (CORTEF) 00 :00 doses, Medical injection First dose Bran ch 50 mg on 04/11/22 at 1700, Last dose on Tue04/12/22 at 0000, 2 mL proCHLORper Yes 10mg 10 mg, Univ ers azine 04-11 Slow IV ity of (COMPAZINE) 21:28: Push, [place] injection 31 Q6HPRN, Medical 10 mg Starting Branch on [place] 04/11/22 at 1628, Until Discontinu ed, Routine, Nausea and Vomiting (N/V), alternate with ondansetro n levothyroxi No 50ug 50 mcg, Un jg ne 04-11 Intravenou ity of (SYNTHROID) 17:15: 17:53 s, ONCE, 1 [place] injection 00 :00 dose, On Medica l 50 mcg [place] Branch 04/11/22 at 1215, Routine clonazePAM Yes 2mg 2 mg, Univer s (KLONOPIN) 04-11 Oral, BID, ity of tablet 2 mg 16:15: First dose [place] 00 (after Medical last Branch modificati on) on [place] 04/11/22 at 1115, Until Discontinu ed, Routine cosyntropin No 250ug 250 mcg, Univers (CORTROSYN) 04-11 Slow IV ity of injection 15:45: 16:40 Push, [place] 250 mcg 00 :00 ONCE, 1 Medical dose, On [facility] 04/11/22 at 1045, Routine enoxaparin Yes 30mg 30 mg, Unive rs (LOVENOX) 04-11 Subcutaneo ity of injection 14:00: us, DAILY, [place] 30 mg 00 First dose Medical on [facility] 04/11/22 at 0900, Until Discontinu ed, Routine DOPamine 2021- No 5ug/kg/ 5 Unive rs 800 mg/500 04-11 min mcg/kg/min it y of mL (1,600 12:00: 01:40 ?55.5 kg [place] mcg/mL) 00 :01 (10.4063 Medical infusion mL/hr, Branch RTU rounded to 10.41 mL/hr), IV Infusion, CONTINUOUS , Starting on [place] 04/11/22 at 0700 levothyroxi 2021- No 25ug 25 mcg, Un jg ne 04-11 Oral, ity of (SYNTHROID) 11:00: 11:19 QAM-0600, [place] tablet 25 00 :00 1 dose, Medical mcg First dose Branch on [place] 04/11/22 at 0600, Routine atropine No .5mg 0.5 mg, IV Un jg injection 04-11 Push, ity of 0.5 mg 06:00: 05:02 ONCE, 1 [place] 00 :00 dose, On [facility] 04/11/22 at 0100, Routine ondansetron Yes 4mg 4 mg, Slow Univers (ZOFRAN 04-11 IV Push, ity of (PF)) 05:41: Q6HPR, [place] injection 4 54 Starting Medi jai mg on [facility] 04/11/22 at 0041, Until Discontinu ed, Routine, Nausea and Vomiting (N/V) butalbital- 2021- No 1{tbl} 1 tablet, Univers acetaminoph 04-11 Oral, ity of en-caff 01:18: 16:35 Q4HPRN, [place] (ESGIC) 20 :31 Starting Medical 50-325-40 on Sat Branch mg tablet 1 04/10/22 at tablet 2018, Until 04/12/22 at 1135, Routine, headache clonazePAM 2021- No 1mg 1 mg, Unive rs (KLONOPIN) 04-10 Oral, BID, it y of tablet 1 mg 20:45: 05:01 First dose [place] 00 :41 on [facility] Medical 04/10/22 at Branch 1545, Until Discontinu ed, Routine acetaminoph Yes 650mg 650 mg, Un jg en 04-10 Oral, ity of (TYLENOL) 18:51: Q6HPRN, [place] tablet 650 25 Starting Medic al mg on [facility] Branch 04/10/22 at 1351, Until Discontinu ed, Routine, Pain (scale 1-3) ketorolac 2021- No 15mg 15 mg, Unive rs (TORADOL) 04-10 Slow IV ity of injection 18:50: 15:41 Push, [place] 15 mg 26 :06 Q6HPRN, Medical Starting Branch on [facility] 04/10/22 at 1350, Until 04/12/22 at 1041, Routine, Pain (scale 4-6) iopamidol 2021- No [id number] 70mL 70 mL, Univers (ISOVUE 04-10 Intravenou ity o f 370-500 mL) 18:15: 18:15 s, ONCE, 1 [place] injection 00 :00 dose, On Medica l 70 mL [facility] 04/10/22 at 1315, Routine NaCl 0.9% No 1000mL at 999 Uni vers (NS) bolus 04-10 mL/hr, ity of infusion 16:00: 16:36 1,000 mL, [place] 1,000 mL 00 :00 IV Medical Infusion, Branch ONCE, 1 dose, On [facility] 04/10/22 at 1100, FLY acetaminoph 2021- No 1000mg 1,000 mg, Univers en 04-10 Oral, ity of (TYLENOL) 16:00: 15:50 ONCE, 1 [place] tablet 00 :00 dose, On Medical 1,000 mg [facility] 04/10/22 at 1100, FLY ALPRAZOLAM 2021- No Take by Uni vers ORAL 04-1010 mouth. ity of 15:31: 00:00 [place] 37 :00 Medical Branch NaCl 0.9% 2021- No 1000mL at 999 Uni vers (NS) bolus 04-1010 mL/hr, ity of infusion 14:45: 15:05 1,000 mL, [place] 1,000 mL 00 :00 IV Medical Infusion, Branch ONCE, 1 dose, On 04/10/22 at 0945, FLY ondansetron 2021- No 4mg 4 mg, Slow Univers (ZOFRAN 04-10 IV Push, ity of (PF)) 14:45: 14:35 ONCE, 1 [place] injection 4 00 :00 dose, On Medi jai mg Sat Branch 04/10/22 at 0945, FLY NaCl 0.9% 2021- No 1000mL at 999 Uni vers (NS) bolus 04-10 mL/hr, ity of infusion 14:30: 15:05 1,000 mL, [place] 1,000 mL 00 :00 IV Medical Infusion, Branch ONCE, 1 dose, On 04/10/22 at 0930, FLY ondansetron Yes [id number] 4mg Take 1 Univers (ZOFRAN 1-23 tablet by ity of ODT) 4 mg 00:00: mouth [place] disintegrat 00 every 8 Medic al ing tablet (eight) Branch hours as needed for Nausea and Vomiting (N/V). ondansetron 2021- No [id number] 4mg Take 1 Univers (ZOFRAN 08-23-10 tablet by ity of ODT) 4 mg 00:00: 00:00 mouth [place] disintegrat 00 :00 every 8 Medic al ing tablet (eight) Branch hours as needed for Nausea and Vomiting (N/V). cephALEXin 2021- No [id number] 500mg Take 1 Univers (KEFLEX) 08-23-03 capsule by ity of 500 mg 00:00: 05:59 mouth 3 [place] capsule 00 :00 (three) Medical times Branch daily for 10 days. metroNIDAZO 2020- No [id number] 500mg Take 1 Univers LE (FLAGYL) 03-26 tablet by it y of 500 mg 00:00: 04:59 mouth 2 [place] tablet 00 :00 (two) Medical times Branch daily for 7 days. metroNIDAZO 2020- No [id number] 500mg Take 1 Univers LE 500 mg 03-23 tablet by ity of tablet 00:00: 04:59 mouth 2 [place] 00 :00 (two) Medical times Branch daily for 7 days. metroNIDAZO 2020- No [id number] 500mg Take 1 Univers LE 500 mg 03-23 tablet by ity of tablet 00:00: 04:59 mouth 2 [place] 00 :00 (two) Medical times Branch daily for 7 days. metroNIDAZO 2020- No [id number] 500mg Take 1 Univers LE 500 mg 03-23 tablet by ity of tablet 00:00: 04:59 mouth 2 [place] 00 :00 (two) Medical times Branch daily for 7 days. metroNIDAZO 2020- No [id number] 500mg Take 1 Univers LE 500 mg 03-23 tablet by ity of tablet 00:00: 04:59 mouth 2 [place] 00 :00 (two) Medical times Branch daily for 7 days. ALPRAZOLAM Yes Take by [facility] ers ORAL 8-21 mouth. ity of 23:35: [address] ALPRAZOLAM Yes Take by [facility] ers ORAL 8-21 mouth. ity of 23:35: [address] ALPRAZOLAM Yes Take by [facility] ers ORAL 8-21 mouth. ity of 23:35: [address] ALPRAZOLAM Yes Take by [facility] ers ORAL 8-21 mouth. ity of 23:35: [address] ALPRAZOLAM Yes Take by [facility] ers ORAL 8-21 mouth. ity of 18:35: [address] valACYclovi 2020- No [id number] 1g Take 1 Univers r 1 gram 03-21 tablet by ity o f tablet 00:00: 04:59 mouth 3 [place] 00 :00 (three) Medical times Branch daily for 7 days. valACYclovi 2020- No [id number] 1g Take 1 Univers r 1 gram 03-21 tablet by ity o f tablet 00:00: 04:59 mouth 3 [place] 00 :00 (three) Medical times [place] daily for 7 days. valACYclovi 2020- No [id number] 1g Take 1 Univers r 1 gram 03-21 tablet by ity o f tablet 00:00: 04:59 mouth 3 [place] 00 :00 (three) Medical times [place] daily for 7 days. valACYclovi 2020- No [id number] 1g Take 1 Univers r 1 gram 03-21 tablet by ity o f tablet 00:00: 04:59 mouth 3 [place] 00 :00 (three) Medical times [place] daily for 7 days. clonazePAM 2020- Yes 2mg Take 2 mg Un jg 2 mg tablet 03-09 by mouth 2 it y of 00:00: (two) [place] 00 times Medical daily. Branch clonazePAM 2020-0 Yes 2mg Take 2 mg Un jg 2 mg tablet 03-09 by mouth 2 it y of 00:00: (two) [place] 00 times Medical daily. Branch clonazePAM 0 Yes 2mg Take 2 mg Un jg 2 mg tablet 03-09 by mouth 2 it y of 00:00: (two) [place] 00 times Medical daily. Branch clonazePAM 2020-0 Yes 2mg Take 2 mg Un jg 2 mg tablet 03-09 by mouth 2 it y of 00:00: (two) [place] 00 times Medical daily. Branch clonazePAM 2020-0 Yes 2mg Take 2 mg Un jg 2 mg tablet 03-09 by mouth 2 it y of 00:00: (two) [place] 00 times Medical daily. Branch clonazePAM 2020-0 Yes 2mg Take 2 mg Un jg 2 mg tablet 03-09 by mouth 2 it y of 00:00: (two) [place] 00 times Medical daily. Branch ALPRAZOLAM 2017-0 Yes Take by Univ ers ORAL 5-15 mouth. ity of 16:08: [place] 13 Medical Branch amoxicillin 2017-0 Yes 875mg Take 1 Uni vers 875 mg 5-15 tablet by ity of tablet 00:00: mouth 2 [place] 00 (two) Medical times Branch daily. traMADOL 50 2017-0 Yes 50mg Take 1 Univ ers mg tablet 5-15 tablet by ity o f 00:00: mouth [place] 00 every 6 Medical (six) Branch hours as needed for Pain (scale 4-6). amoxicillin 2018-0 Yes 875mg Take 1 Uni vers 875 mg 5-15 tablet by ity of tablet 00:00: mouth 2 [place] 00 (two) Medical times Branch daily. traMADOL 50 2018-0 Yes 50mg Take 1 Univ ers mg tablet 5-15 tablet by ity o f 00:00: mouth [place] 00 every 6 Medical (six) Branch hours as needed for Pain (scale 4-6). amoxicillin 2018-0 Yes 875mg Take 1 Uni vers 875 mg 5-15 tablet by ity of tablet 00:00: mouth 2 [place] 00 (two) Medical times Branch daily. traMADOL 50 2018-0 Yes 50mg Take 1 Univ ers mg tablet 5-15 tablet by ity o f 00:00: mouth [place] 00 every 6 Medical (six) Branch hours as needed for Pain (scale 4-6). amoxicillin 2018-0 Yes 875mg Take 1 Uni vers 875 mg 5-15 tablet by ity of tablet 00:00: mouth 2 00 (two) Medical times Branch daily. traMADOL 50 2018-0 Yes 50mg Take 1 Univ ers mg tablet 5-15 tablet by ity o f 00:00: mouth [place] 00 every 6 Medical (six) Branch hours as needed for Pain (scale 4-6). amoxicillin 2018-0 Yes 875mg Take 1 Uni vers 875 mg 5-15 tablet by ity of tablet 00:00: mouth 2 [place] 00 (two) Medical times Branch daily. traMADOL 50 2018-0 Yes 50mg Take 1 Univ ers mg tablet 5-15 tablet by ity o f 00:00: mouth [place] 00 every 6 Medical (six) Branch hours as needed for Pain (scale 4-6). amoxicillin 2018-0 Yes 875mg Take 1 Uni vers 875 mg 5-15 tablet by ity of tablet 00:00: mouth 2 [place] 00 (two) Medical times Branch daily. traMADOL 50 2018-0 Yes 50mg Take 1 Univ ers mg tablet 5-15 tablet by ity o f 00:00: mouth [place] 00 every 6 Medical (six) Branch hours as needed for Pain (scale 4-6). amoxicillin 2018-0 2021- No 875mg Take 1 Un jg 875 mg 5-15 09- tablet by ity of tablet 00:00: 00:00 mouth 2 [place] 00 :00 (two) Medical times Branch daily. traMADOL 50 2017-0 50mg Take 1 Uni vers mg tablet 5-15 04-10 tablet by ity of 00:00: 00:00 mouth [place] 00 :00 every 6 Medical (six) Branch hours as needed for Pain (scale 4-6). Vital Signs Vital Name Observation Time Observation Value Comments Source Systolic blood 2022-04-16 98 mm[Hg] University of pressure 13:23:00 [facility] Diastolic blood 2022-04-16 65 mm[Hg] University o f pressure 13:23:00 [facility] Heart rate 2022-04-16 107 /min [facility] 13:23:00 [facility] Body temperature 2022-04-16 36.44 [place] [facility] 13:19:00 [facility] Respiratory rate 2022-04-16 18 /min [facility] :19:00 [facility] Oxygen saturation 2022-04-16 97 /min [facility] Arterial blood 13:19:00 [facility] by Pulse oximetry [place] Body weight 2022-04-16 58.469 kg bed scale was University 09:36: used, pt [facility] to Branch stand on the regular scale BMI 2022-04-16 22.13 kg/m2 University of 09:36:00 [facility] Body height 2022-04-14 162.6 cm University of 01:00:00 [facility] Systolic blood 2021-08-23 121 mm[Hg] University of pressure 05:10:00 [facility] Diastolic blood 2021-08-23 90 mm[Hg] University o f pressure 05:10:00 [facility] Heart rate 2021-08-23 74 /min University of 05:10:00 [facility] Body temperature 2021-08-23 36.56 [place] [facility] 05:10:00 [facility] Respiratory rate 2021-08-23 19 /min [place] of 05:10:00 [facility] Body height 2021-08-23 162.6 cm University of 05:10:00 [facility] Body weight 2021-08-23 56.7 kg [facility] 05:10:00 [facility] BMI 2021-08-23 21.46 kg/m2 [facility] Hospitals 05:10:00 [facility] Oxygen saturation 2021-08-23 100 /min [facility] Arterial blood 05:10:00 [facility] by Pulse oximetry Branch Procedures Procedure Date / Time Performing Source Performed Clinician MAGNESIUM 2022-04-16 Akin [facility] xa 09:34:00 Medical Branch BASIC METABOLIC PANEL (NA, K, 2022-04-16 Raimundo Gerardo [facility] CL, CO2, GLUCOSE, BUN, 09:34:00 [facility] ran CREATININE, CA) CBC WITH DIFF 2022-04-16 Akin [facility] xas 09:34:00 [facility] MR CARDIAC MORPHOLOGY W WO 2022-04-15 [facility] CONTRAST 15:45:00 [facility] MAGNESIUM 2022-04-15 Manav [facility] exas 10:03:00 [facility] HEPATIC FUNCTION PANEL 2022-04-15 [facility] ([id number]) (ALB,T.PRO,BILI 10:03:00 [facility] T,BU/BC,ALT,AST,ALK PHOS) BASIC METABOLIC PANEL (NA, K, 2022-04-15 Manav [facility] CL, CO2, GLUCOSE, BUN, 10:03:00 [facility] CREATININE, CA) CBC WITH DIFF 2022-04-[address] [facility] 10:03:00 [facility] PROTHROMBIN TIME / INR 2022-04-15 Manav [facility] 10:03:00 [facility] HEPATITIS B SURFACE ANTIBODY 2022-04-15 Scarlet [facility] [address] 10:03:00 [facility] HCV ANTIBODY 2022-04-15 [facility] ex 10:03:00 [facility] HBC ANTIBODY (IGM & IGG) 2022-04-15 [facility] [address] 10:03:00 [facility] GC & CHLAMYDIA AMPLIFIED 2022-04-14 Joseph[facility] ASSAY 17:08:00 [facility] ANTICARDIOLIPIN ANTIBODIES 2022-04-14 [facility] 15:17:00 [facility] THYROID PEROXIDASE (TPO) AB 2022-04-14 Deven Novak [facility] 15:17:00 Medical Branch CYCLIC CITRULLINATED PEPTIDE 2022-04-14 ScarletDeven [facility] 15:17:00 Medical Branch ANTI-B2 GLYCOPROTEIN I AB 2022-04-14 ScarletDeven [facility] 15:17:00 Medical Branch BASIC METABOLIC PANEL (NA, K, 2022-04-14 Lin Ernesto [facility] CL, CO2, GLUCOSE, BUN, 00:45:[address] [facility] CREATININE, CA) CBC WITH DIFF 2022-04-14 Lin [facility] 00:45:00 Medical Branch PROTHROMBIN TIME / INR 2022-04-14 Lin, [facility] 00:45:00 Medical Branch ACTIVATED PARTIAL THRMPLAS 2022-04-14 Lni [facility] JOE 00:45:00 [facility] HEPATITIS B SURFACE ANTIGEN 2022-04-14 Scarlet Deven [facility] 00:45:00 Medical Branch LACTIC ACID WHOLE BLOOD 2022-04-14 Lin [facility] 00:45:00 Medical Branch LYME, LATE DISEASE (ABS, 2022-04-14 David Ojeda [facility] KISHAN W/REFLEX TO WB) 00:45:00 Medical Br anch MAGNESIUM 2022-04-13 [facility] 08:[facility] Medical Branch BASIC METABOLIC PANEL (NA, K, 2022-04-13 Abdulaziz Epstein [facility] CL, CO2, GLUCOSE, BUN, 08:24:00 [facility] CREATININE, CA) HIV 1/2 AG-AB WITH REFLEX 2022-04-13 David Ojeda [facility] 08:24:00 [facility] XR CHEST 1 VW 2022-04-12 Lucian [facility] xas 18:12:00 Medical Branch URINALYSIS 2022-04-12 Lucian [facility] xa 18:08:00 Medical Branch URINE CULTURE 2022-04-12 Lucian [facility] xa 18:08:00 [facility] PROTEIN CREAT RATIO URINE 2022-04-12 Abdulaziz Epstein [facility] RANDOM 18:08:00 Medical Branch CREATINE KINASE 2022-04-12 [facility] 17:56:00 Medical Branch BASIC METABOLIC PANEL (NA, K, 2022-04-12 Abdulaziz Epstein [facility] CL, CO2, GLUCOSE, BUN, 17:56:00 Medical B ranch CREATININE, CA) CT HEAD WO CONTRAST 2022-04-12 [facility] [place] 11:06:02 [facility] FREE T4 2022-04-12 Lucian [facility] xas 06:11:00 Medical Branch CBC WITH DIFF 2022-04-12 Lucian [facility] xas 06:11:00 [facility] HB ECG ROUTINE & RHYTHM STRIP 2022-04-12 Suly Sweet [facility] 05:23:39 [facility] RHEUMATOID FACTOR 2022-04-11 Lucian [facility] 22:41:00 Medical Branch C4 COMPLEMENT 2022-04-11 Lucian [facility] xas 22:41:00 Medical Branch SEDIMENTATION RATE 2022-04-11 [facility] 22:41:00 Medical Branch PROTHROMBIN TIME / INR 2022-04-11 [facility] 22:41:00 Medical Branch ACTIVATED PARTIAL THRMPLAS 2022-04-11 Lucian Abdulaziz [facility] JOE 22:41:00 Medical Branch ANTI-NUCLEAR ANTIBODY SCREEN 2022-04-11 Abdulaziz Epstein [facility] 22:41:00 Medical Branch ANTI-NUCLEAR ANTIBODY TITER 2022-04-11 Lucian Abdulaziz [facility] 22:41:00 Medical Branch ANTI-SSB(LA) 2022-04-11 David Ojeda [facility] xas 22:41:00 Medical Branch ANTI-DOUBLE STRANDED DNA 2022-04-11 Lucian Abdulaziz [facility] 22:41:00 [facility] GALV ONLY - SYPHILIS IGG/IGM 2022-04-11 Deven Novak [facility] 22:41:00 Medical Branch ANTI-NUCLEAR 2022-04-11 [facility] xa ANTIBODY-PATHOLOGIST 22:41:00 Medical [facility] nc INTERPRETATION CORTISOL STIMULATION 60 MIN 2022-04-11 [facility] 17:46:00 Medical Branch CORTISOL STIMULATION 30 MIN 2022-04-11 [facility] 17:16:00 [facility] ADRENOCORTICOTROPIC HORMONE 2022-04-11 [facility] 16:30:00 [facility] C-REACTIVE PROTEIN 2022-04-11 [facility] 16:30:00 Medical Branch CORTISOL STIMULATION 0 MIN 2022-04-11 [facility] 16:30:00 [facility] [place] XR CHEST 1 VW 2022-04-11 [facility] 14:46:47 [facility] [place] TRANSTHORACIC ECHO (TTE) 2022-04-11 [facility] COMPLETE 13:59:00 [facility] [place] HB ECG ROUTINE & RHYTHM STRIP 2022-04-11 [facility] Abdulaziz [facility] 12:47:45 Medical Branch PHOSPHORUS 2022-04-11 [facility] xas 09:48:00 Medical Branch MAGNESIUM 2022-04-11 [facility] xa 09:48:00 Medical Branch CORTISOL AM 2022-04-11 [facility] 09:48:00 [facility] TROPONIN I 2022-04-11 [facility] xa 09:48:00 [facility] HEPATIC FUNCTION PANEL 2022-04-11 [facility] ([id number]) (ALB,T.PRO,BILI 09:48:00 Medical Branch T,BU/BC,ALT,AST,ALK PHOS) BASIC METABOLIC PANEL (NA, K, 2022-04-11 [facility] CL, CO2, GLUCOSE, BUN, 09:48:00 Medical ranch CREATININE, CA) CBC WITH DIFF 2022-04-11 [facility] xas 09:48:00 [facility] LACTIC ACID WHOLE BLOOD 2022-04-10 [facility] 19:46:00 Medical Branch HB ECG ROUTINE & RHYTHM STRIP 2022-04-10 [facility] 19:30[facility]05 Medical Branch MRSA / MSSA SCREEN BY PCR, 2022-04-10 Abdulaziz Epstein [facility] NARES 18:47:[address] CHEST PULMONARY ANGIOGRAM 2022-04-10 Tatum Clark [facility] 17:17:12 Medical Branch COVID-19 (ID NOW RAPID 2022-04-10 Tatum Clark [facility] TESTING) 16:37:00 Medical Branch LAB ONLY COVID INTERPRETATION 2022-04-10 Tatum Clark [facility] 16:37:00 Medical Branch HB ECG ROUTINE & RHYTHM STRIP 2022-04-10 Tatum Clark [facility] 13:55:45 Medical Branch PHOSPHORUS 2022-04-10 [facility] 13:36:00 Medical Branch CREATINE KINASE 2022-04-10 [facility] 13:36:00 Medical Branch MAGNESIUM 2022-04-10 [facility] 13:36:00 [facility] TROPONIN I 2022-04-10 [facility] 13:36:00 Medical Branch FREE T4 2022-04-10 Lucian [facility] xas 13:36:00 [facility] THYROID STIMULATING HORMONE 2022-04-10 Tatum Clark [facility] 13:36:00 Medical Branch COMP. METABOLIC PANEL (02235) 2022-04-10 Tatum Clark [facility] 13:36:00 Medical Branch ETHANOL 2022-04-10 [facility] 13:36:00 Medical Branch CBC WITH DIFF 2022-04-10 [facility] 13:36:00 [facility] URINALYSIS 2022-04-10 [facility] 13:36:00 [facility] POCT TEST 2022-04-10 [facility] 13:36:00 [facility] N-TERMINAL PRO-BNP 2022-04-10 Eduardo Tatum [place] 13:36:00 [facility] URINE DRUG (IMMUNOASSAY) - 2022-04-10 [facility] COMPREHENSIVE DRUG SCREEN W/O 13:36:00 Ri dical Branch REFLEX CONSENT/REFUSAL FOR DIAGNOSIS 2022-04-10 Doctor Unassigned, [facility] AND TREATMENT 13:23:47 [place] [facility] [place] [facility] ADMISSION 2022-04-10 Doctor Unassigned, [facility] 05:01:00 [place] [facility] ASSIGNMENT OF BENEFITS 2021-08-23 Doctor Unassigned, [facility] 06:40:03 [place] [facility] URINALYSIS 2021-08-23 Marc Jhaveri [facility] xa 06:00:00 [facility] POCT TEST 2021-08-23 Marc Jhaveri Mariela [place] [facility] [place] 06:00:00 [facility] NOTICE OF PRIVACY PRACTICES 2021-08-23 Doctor Unassjose carlos, [facility] 05:07:28 [place] [facility] CONSENT/REFUSAL FOR DIAGNOSIS 2021-08-23 Doctor Unassigned, [facility] AND TREATMENT 05:07:13 [place] [facility] Plan of Care Planned Activity Planned Date Details Comments Source Encounters Start End Encounter Admission Attending Care Care Encounter Source Date/Time Date/Time Type Type Clinicians Facility Department ID 2022-04-16 2022-04-16 Outpatient Beata CESPEDES [facility] [id number] [facility] 13:52:31 23:59:00 JULI [facility] 2022-04-16 2022-04-16 Outpatient Beata CESPEDES [facility] [id number]-20 Univers 15:00:00 15:00:00 JULI [id number] [facility] 2022-04-10 2022-04-16 [facility] Tatum Clark [id number] Univers 08:29:00 11:43:00 Encounter Abdulaziz Epstein [id number] [facility] 4.2 .7.2.686 Juli Collier [id number] [place] [id number] Branch 2022-04-10 2022-04-16 Inpatient U NAVNEET [facility] [id number] Univers 08:29:00 11:43:00 AIHAM ity of [facility] 2021-08-22 2021-08-23 Emergency X Marc JHAVERI [facility] ERT [id number] Univers 23:25:00 01:50:00 ity of [facility] 2021-08-22 2021-08-23 Emergency Marc Jhaveri [facility] [id number] Univers 23:25:00 01:50:00 Mariela HARDIN [id number] i ty of [place] 4.2.7.2.686 [facility] [id number] [address] 2021-03-25 2021-03-25 Telephone [facility] [id number] Univers 00:00:00 00:00:00 [facility] [id number] i ty of [place] 4.2.7.2.686 Devon as Randall?Blea [id number] [address] Medical Office [facility] 2021-03-23 2021-03-23 Telephone [facility] [id number] Univers 00:00:00 00:00:00 [facility] [id number] it y of [place] 4.2.7.2.686 [facility] [id number] [address] ([facility]) 2021-03-23 2021-03-23 Telephone [facility] [id number] Univers 00:00:00 00:00:00 Patient Health 350.1.13.10 it y of Does Not [place].2.686 [place] Randall?Blea [id number] [address] Medical Office Building 2021-03-21 2021-03-21 Outpatient R STEPHANIE, [facility] [id number] Univers 18:20:00 18:20:00 ATTENDING ity [facility] 2021-03-20 2021-03-20 Outpatient R BRIANNA [facility] [id number] Univers 09:00:00 09:00:00 WONDIFUL itlefty barker [facility] 2020-03-18 2020-03-18 Outpatient attema_alla [facility]G [id number] [place] 11:45:00 11:45:00 0818 Medical Group 2019-11-27 2019-11-27 Telephone Pcp, [facility] [id number] [facility] 00:00:00 00:00:00 Patient CASING TESTER [id number] it y of Does Not [address]686 [place] MATERNAL [id number] Med ical & CHILD [address] [place] [address] 2019-11-27 2019-11-27 Telephone Pcp, [facility] [id number] 00:00:00 00:00:00 Patient CASING TESTER [id number] [facility] 42.7.2.686 Have A MATERNAL [id number] & CHILD [address] [place] [address] Results Test Description Test Time Test Comments Results Result Comments Source LYME, LATE DISEASE (ABS, KISHAN W/REFLEX TO WB) 2022-04-16 04 :33:35 Test Item Value Reference Range Interpretation Comme nts LYME EIA (test code = 97257-3) See_Comment When the Borrelia burgdorferi Abs, Total by KISHAN result is negative, no further testing is done.INTERPRETIVE INFORMATION: Kenny rrelia Burgdorferi Abs,Total by EL PERFECTO ?0.99 RICHI or Less: ...... Negative : Antibody to B. ? burgdorferi not detected. ?1.00 - 1.20 RICHI......... Equivocal: Repe at testing in ? 10-14 days may be helpful. ?1.21 RICHI or Greater: ... Positive: Proba ble presence of ? antibody to B. burgdorferi ? detected.Perfor med By: [employer] [place] [address] [id number] aboratory Director: Faustino viveros MD, PhD [Automated message] The sy stem which generated this result tra nsmitted reference range: 0.00 - 1 .20 RICHI. The reference range was not u sed to interpret this result as jeffrey l/abnormal. [facility] PEROX[facility] (TPO) [id number] 16:21:03 Test Item Value Reference Interpretation Comments Range TPO Ab IgG (test See_Comment H [Automated code = 2196284006) message] The system which generated this result transmitted reference range : 0.0 - 100.0 WHO Units. The reference range was not used to interpret this result as normal/abnormal . SANFORD (test code = Interpretation: SANFORD) Negative: ?<= 100 WHO UnitsPositive: ? > 100 WHO Units A positive result indicates the presence of TPO antibodies and suggests thepossibility of Janee's thyroiditis and/or Graves' disease. ?A negativeresult indicates no TPO antibodies or levels below the negative cut-off ofthe assay. ?The presence of antibodies to TPO can be used in conjunction withclinical findings and other laboratory tests to aid in the diagnosis ofautoimmune thyroid diseases such as Janee's thyroiditis and Graves'disease. Lab Interpretation Abnormal (test code = 92522-5) [facility] CenterCYCLIC CITRULLINATED [id number] 16:04:26 Test Item Value Reference Range Interpretation Comments CCP IgG (test code = 2.6 U 0-20 9377108762) SANFORD (test code = SANFORD) INTERPRETATION: UNITS: Negative <20Weak Positive 20-39Moderate Positive 40-59Strong Positive >=60 A positive result indicates the presence of CCP IgG antibodies and suggests the possibility of RA antibodies and suggests the possibility of SLE. A negative result indicates no CCP IgG antibodies or levels below the cut-off ofthe assay. Lab Interpretation (test Normal code = 89118-6) [facility] CenterANTICARDIOLIPIN [id number] 15:58:16 Test Item Value Reference Interpretation Comments Range Anticardiolipin See_Comment [Automated Antibody IgG (test message] The code = 8911311580) system [facility] generated this result transmitted reference range: 0.0 - 10.0 GPL. The reference range was not used to interpret this result as normal/abnormal . Anticardiolipin See_Comment [Automated Antibody IgM (test message] The code = 3737100860) system [facility] generated this result transmitted reference range: 0.0 - 10.0 MPL. The reference range was not used to interpret this result as normal/abnormal . Anticardiolipin See_Comment [Automated Antibody IgA (test message] The code = 8377811075) system wh ich generated this result transmitted reference range: 0.0 - 15.0 APL. The reference range was not used to interpret this result as normal/abnormal . SANFORD (test code = Interpretation: ? SANFORD) ? IgG ?IgM ?IgANegative Values: ? <10.0 ?<10.0 ? <15.0Indeterminate ("Walls" zone) Values: ? ?10.0-19.0 ? ?10.0-25.0 ? ? 15.0-27.0Medium Values: ? 20.0-80.0 ? ?26.0-80.0 ? ? 28.0-80.0High Positive Values: ? >80.0 ?>80.0 ? >80.0 Note:Medium-high levels of anticardiolipin antibodies (mainly of the IgG isotype)have been associated with thrombosis, recurrent losses andthrombocytopenia in patients with Antiphospholipid Syndrome and SLE relateddisorders.It is recommended to repeat the test that give values in theIndeterminate "Walls" zone range at a later date (i.e. 4-6 weeks) to confirmpositivity. ?Presley Cota et al. ?J Thromb Haemost 2006; 4: 2210-4 Lab Interpretation Normal (test code = 59071-5) [facility] CenterANTI-B2 GLYCOPROTEIN I [id number] 15:53:57 Test Item Value Reference Interpretation Comments Range Anti-B2 See_Comment [Automated Glycoprotein 1 IgG message] The (test code = system which 8664078795) generated this result transmitted reference range : 0.0 - 20.0 SGU. The reference range was not used to interpret this result as normal/abnormal . Anti-B2 See_Comment [Automated Glycoprotein 1 IgM message] The (test code = system which 9992538575) generated this result transmitted reference range : 0.0 - 20.0 SMU. The reference range was not used to interpret this result as normal/abnormal . Anti-B2 See_Comment [Automated Glycoprotein 1 IgA message] The (test code = system which 2207689214) generated this result transmitted reference range : 0.0 - 20.0 FRANCI. The reference range was not used to interpret this result as normal/abnormal . SANFORD (test code = INTERPRETATION:Values SANFORD) over 20 SGU, SMU, or FRANCI units are considered positive. NOTE:A positive test for anti-B2 Glycoprotein I antibodies may indicate the presence of Antiphospholipid Syndrome. ?Anti-B2 Glycoprotein I antibodies have been associated with thrombosis, recurrent losses and/or thrombocytopenia. TEST PERFORMED AT:[facility]. [address] [place] [address] [facility] [place] [address] Lab Interpretation Normal (test code = 01022-1) [facility] CenterHEPATITIS B SURFACE [id number] 15:44:25 Test Item Value Reference Range Interpretation Comments HBsAB (test code = Indeterminate 9464711527) HBsAb mIU/mL Semi-Quantitative (test code = 2822775081) SANFORD (test code = Unable to determine if SANFORD) antibody to Hepatitis B Surface Antigen is present at levels consistent with immunity. ?Patient's immune status should be assessed with other clinical information and/or retesting in 4-6 weeks as clinically indicated. ?If any questions, please contact Clinical Chemistry Director document control manager at .Interpretati on: ?Hepatitis B Surface Antibody ? Negative - Patient is considered to be not immune to infection with HBV. ? ? Positive - Anti-HBs detected at greater than or equal to 12 mIU/mL. ?Patient is considered to be immune to infection with HBV. ? [facility] CenterHBC ANTIBODY (IGM & IGG)2022-04-15 11:48:38 Test Item Value Reference Range Interpretation Comments HBC (test code = 5407786798) Negative HBC Semi-Quantitative (test code = 3903737617) [facility] CenterHCV [id number] 11:48:37 Test Item Value Reference Range Interpretation Comments HCV Ab (test code = 25603-3) Negative HCV Semi-Quantitative (test code = 43027-7) [facility] CenterHEPATIC FUNCTION PANEL (39978) (ALB,T.PRO,BILI T,BU/BC,ALT,AST,ALK PHOS)2022-04-15 11:06:34 Test Item Value Reference Range Interpretation Comments TOTAL BILI (test code = 5700748951) 0.2 mg/dL 0.1-1.1 BILI UNCON (test code = 9972028576) 0.1 mg/dL 0.1-1.1 BILI CONJ (test code = 4164230690) 0.0 mg/dL 0-0.3 T PROTEIN (test code = 5318874159) 5.0 g/dL 6.3-8.2 L ALBUMIN (test code = 5892788251) 2.8 g/dL 3.5-5 L ALK PHOS (test code = 7829113783) 54 U/L 34-122 ALTv (test code = 1742-6) 12 U/L 5-35 AST(SGOT) (test code = 7226281784) 18 U/L 13-40 Lab Interpretation (test code = Abnormal 73986-8) [facility] CenterMAGNESIUM2022 11:06:34 Test Item Value Reference Range Interpretation Comments MAGNESIUM (test code = 4291261091) 2.1 mg/dL 1.7-2.4 Lab Interpretation (test code = Normal 90092-4) [facility] CenterBASI METABOLIC PANEL (NA, K, CL, CO2, GLUCOSE, BUN, CREATININE, CA)2022-04-15 11:06:34 Test Item Value Reference Range Interpretation Comments NA (test code = 139 mmol/L 135-145 0310055989) K (test code = 4.2 mmol/L 3.5-5 4269358617) CL (test code = 112 mmol/L 98-108 H 7528348473) CO2 TOTAL (test code = 26 mmol/L 23-31 0256406370) AGAP (test code = 2-16 L 8813057443) BUN (test code = 16 mg/dL 7-23 1025201079) GLUCOSE (test code = 84 mg/dL 70-110 9461890075) CREATININE (test code = 0.75 mg/dL 0.5-1.04 8230870345) CALCIUM (test code = 7.9 mg/dL 8.6-10.6 L 4891295638) eGFR (test code = mL/min/1.73m2 8987587936) SANFORD (test code = SANFORD) Association of Glomerular Filtration Rate (GFR) and Staging of Kidney Disease* + --+ --+ ------+| GFR (mL/min/1.73 m2) ?| With Kidney Damage ?| ?Without Kidney Damage+ --------+ --------+ +| ?>90 ?| ?Stage one ?| ? Normal ?+ ---+ ---+ -------+| ?60-89 ?| ?Stage two ?| ? Decreased GFR ? + --+ --+ ------+| ?30-59 ?| ?Stage three ?| ? Stage three ? + --+ --+ ------+| ?15-29 ?| ?Stage four ? | ? Stage four ?+ ---+ ---+ -------+| ?<15 (or dialysis) ? ?| ?Stage five ? | ? Stage five ?+ ---+ ---+ -------+ *Each stage assumes the associated GFR level has been in effect for at least three months. ?Stages 1 to 5, with or without kidney disease, indicate chronic kidney disease. Notes: Determination of stages one and two (with eGFR >59mL/min/1.73 m2) requires estimation of kidney damage for at least three months as defined by structural or functional abnormalities of the kidney, manifested by either:Pathological abnormalities or Markers of kidney damage (including abnormalities in the composition of the blood or urine or abnormalities in imaging tests). Lab Interpretation Abnormal (test code = 54333-2) [facility] WITH [id number] 10:25:33 Test Item Value Reference Range Interpretation Comments WBC (test code = See_Comment [Automated 0172-2) message] The sy stem which generated this result transmitted reference range : 4.30 - 11.10 10*3/?L. The reference range was not used to interpret this result as normal/abnormal . RBC (test code = See_Comment L [Automated 649-8) message] The sy stem which generated this result transmitted reference range : 3.93 - 5.25 10*6/?L. The reference range was not used to interpret this result as normal/abnormal . HGB (test code = 10.9 g/dL 11.6-15 L 718-7) HCT (test code = 31.4 % 35.7-45.2 L 4544-3) MCV (test code = 89.2 fL 80.6-95.5 787-2) MCH (test code = 31.0 pg 25.9-32.8 785-6) MCHC (test code = 34.7 g/dL 31.6-35.1 786-4) RDW-SD (test code = 41.0 fL 39-49.9 79476-4) RDW-CV (test code = 12.6 % 12-15.5 788-0) PLT (test code = See_Comment L [Automated 777-3) message] The sy stem which generated this result transmitted reference range : 166 - 358 10*3/ ?L. The reference r earnest was not used to interpret this result as normal/abnormal . MPV (test code = 10.6 fL 9.5-12.9 61011-0) NRBC/100 WBC (test See_Comment [Automat ed code = [id number]) message] The system which generated this result transmitted reference range : 0.0 - 10.0 /100 WBCs. The refer ence range was not u sed to interpret th is result as normal/abnormal . NRBC x10^3 (test code See_Comment [Auto mated = [id number]) message] The s ystem which generated this result transmitted reference range : 10*3/?L. The reference range was not used to interpret this result as normal/abnormal . GRAN MAT (NEUT) % 58.3 % (test code = 770-8) IMM GRAN % (test code 0.30 % = 9900086858) LYMPH % (test code = 33.2 % 736-9) MONO % (test code = 5.5 % 5905-5) EOS % (test code = 2.5 % 713-8) BASO % (test code = 0.2 % 706-2) GRAN MAT x10^3(ANC) 3.49 10*3/uL 1.88-7.09 (test code = 2241786823) IMM GRAN x10^3 (test 0-0.06 code = 3762743229) LYMPH x10^3 (test code 1.99 10*3/uL 1.32-3.29 = 731-0) MONO x10^3 (test code 0.33 10*3/uL 0.33-0.92 = 742-7) EOS x10^3 (test code = 0.15 10*3/uL 0.03-0.39 711-2) BASO x10^3 (test code 0.01-0.07 = 704-7) Lab Interpretation Abnormal (test code = 49902-0) [facility] / [id number] 10:25:12 Test Item Value Reference Range Interpretation Comments PROTIME PATIENT (test See_Comment [Auto mated message] code = 5964-2) The system [employer] generated this result transmitted ref erence range: 10.1 - 1 2.6 Seconds. The re ference range was not u sed to interpret this result as normal/abnor mal. INR (test code = 6301-6) Nor mal INR <1.1; Warfarin Therap eutic range 2.0 to 3. 0 or 2.5 to 3.5, dep ending upon the indica tions. Lab Interpretation (test Normal code = 85747-7) [facility]HEPAT[facility] SURFACE [id number] 21:24:29 Test Item Value Reference Range Interpretation Comments HBsAg Semi-Quantitative (test code = Negative Negative 5195-3) [facility] (NA, K, CL, CO2, GLUCOSE, BUN, CREATININE, CA)2022-04-14 01:26:24 Test Item Value Reference Range Interpretation Comments NA (test code = 141 mmol/L 135-145 5872619793) K (test code = 3.7 mmol/L 3.5-5 2407938106) CL (test code = 110 mmol/L 98-108 H 5978409263) CO2 TOTAL (test code = 27 mmol/L 23-31 8310673592) AGAP (test code = 2-16 8940904522) BUN (test code = 16 mg/dL 7-23 6829253459) GLUCOSE (test code = 101 mg/dL 70-110 5334533559) CREATININE (test code = 0.83 mg/dL 0.5-1.04 1119014234) CALCIUM (test code = 8.3 mg/dL 8.6-10.6 L 4870809652) eGFR (test code = mL/min/1.73m2 4574501360) SANFORD (test code = SANFORD) Association of Glomerular Filtration Rate (GFR) and Staging of Kidney Disease* + --+ --+ ------+| GFR (mL/min/1.73 m2) ?| With Kidney Damage ?| ?Without Kidney Damage+ --------+ --------+ +| ?>90 ?| ?Stage one ?| ? Normal ?+ ---+ ---+ -------+| ?60-89 ?| ?Stage two ?| ? Decreased GFR ? + --+ --+ ------+| ?30-59 ?| ?Stage three ?| ? Stage three ? + --+ --+ ------+| ?15-29 ?| ?Stage four ? | ? Stage four ?+ ---+ ---+ -------+| ?<15 (or dialysis) ? ?| ?Stage five ? | ? Stage five ?+ ---+ ---+ -------+ *Each stage assumes the associated GFR level has been in effect for at least three months. ?Stages 1 to 5, with or without kidney disease, indicate chronic kidney disease. Notes: Determination of stages one and two (with eGFR >59mL/min/1.73 m2) requires estimation of kidney damage for at least three months as defined by structural or functional abnormalities of the kidney, manifested by either:Pathological abnormalities or Markers of kidney damage (including abnormalities in the composition of the blood or urine or abnormalities in imaging tests). Lab Interpretation Abnormal (test code = 56859-4) [facility] CenterLactic Acid Whole [id number] 01:17:52 Test Item Value Reference Range Interpretation Comments LACTIC ACID (test code = 1.01 mmol/L 0.5-2.2 6711582384) Lab Interpretation (test code = Normal 89962-4) [facility]PTT2022-[facility]-14 01:09:01 Test Item Value Reference Range Interpretation Comments APTT Patient (test code = See_Comment [ Automated message] 3173-2) The system [employer] generated this result transmitted ref erence range: 26 - 36 Seconds. The re ference range was not u sed to interpret this result as normal/abnor mal. Lab Interpretation (test Normal code = 88969-1) [facility] / [id number] 01:09:01 Test Item Value Reference Range Interpretation Comments PROTIME PATIENT (test See_Comment [Auto mated message] code = 5964-2) The system [facility] generated this result transmitted ref erence range: 10.1 - 1 2.6 Seconds. The re ference range was not u sed to interpret this result as normal/abnor mal. INR (test code = 6301-6) Nor mal INR <1.1; Warfarin Therap eutic range 2.0 to 3. 0 or 2.5 to 3.5, dep ending upon the indica tions. Lab Interpretation (test Normal code = 86561-9) [facility] WITH [id number] 01:03:39 Test Item Value Reference Range Interpretation Comments WBC (test code = See_Comment [Automated message] 6690-2) The system [employer] generated this result transmitted ref erence range: 4.30 - 1 1.10 10*3/?L. The re ference range was not u sed to interpret this result as normal/abnor mal. RBC (test code = See_Comment [Automated message] 789-8) The system [employer] generated this result transmitted ref erence range: 3.93 - 5 .25 10*6/?L. The re ference range was not u sed to interpret this result as normal/abnor mal. HGB (test code = 13.4 g/dL 11.6-15 718-7) HCT (test code = 39.5 % 35.7-45.2 4544-3) MCV (test code = 91.0 fL 80.6-95.5 787-2) MCH (test code = 30.9 pg 25.9-32.8 785-6) MCHC (test code = 33.9 g/dL 31.6-35.1 786-4) RDW-SD (test code 40.8 fL 39-49.9 = 21684-4) RDW-CV (test code 12.3 % 12-15.5 = 788-0) PLT (test code = See_Comment [Automated message] 777-3) The system whic h generated this result transmitted ref erence range: 166 - 35 8 10*3/?L. The re ference range was not u sed to interpret this result as normal/abnor mal. MPV (test code = 10.8 fL 9.5-12.9 90308-1) NRBC/100 WBC (test See_Comment [Automat ed message] code = 7669261183) The syste m which generated this result transmitted ref erence range: 0.0 - 10 .0 /100 WBCs. The refer ence range was not u sed to interpret this result as normal/abnor mal. NRBC x10^3 (test See_Comment [Automated message] code = 5300171291) The syste m which generated this result transmitted ref erence range: 10*3/?L. The reference range was not used to interpr et this result as normal/abnormal . GRAN MAT (NEUT) % 56.8 % (test code = 770-8) IMM GRAN % (test 0.10 % code = 7340385384) LYMPH % (test code 37.1 % = 736-9) MONO % (test code 4.3 % = 5905-5) EOS % (test code = 1.2 % 713-8) BASO % (test code 0.5 % = 706-2) GRAN MAT 4.67 10*3/uL 1.88-7.09 x10^3(ANC) (test code = 0067978500) IMM GRAN x10^3 0-0.06 (test code = 7541336543) LYMPH x10^3 (test 3.05 10*3/uL 1.32-3.29 code = 731-0) MONO x10^3 (test 0.35 10*3/uL 0.33-0.92 code = 742-7) EOS x10^3 (test 0.10 10*3/uL 0.03-0.39 code = 711-2) BASO x10^3 (test 0.04 10*3/uL 0.01-0.07 code = 704-7) [facility] CenterTransthoracic echo (TTE)2022-04-11 16:43:30 Test Item Value Reference Range Interpretation Comments Height (test code = in 2749344480) Weight (test code = lbs 3262501759) Systolic BP (test code = mmHg 1288889042) Diastolic BP (test code mmHg = 6318311331) Heart Rate (test code = bpm 3331154483) BSA (test code = 1.60 m2 3371553797) Ao root annulus (test 2.8 cm code = 3473581554) Ao root diam (test code 2.80 cm = 9937250853) Aortic root (test code = 2.8 cm 1468020533) LVOT diameter (test code 1.80 cm = 8942744024) LVOT area (test code = 2.60 cm2 8113538377) LVIDD (test code = 4.50 cm 0293951795) Left Ventricular End 91.2 mL Diastolic Volume by Teichholz Method (test code = 7113755) IVS (test code = 0.71 cm 3712650710) Interventricular Septum 0.71 cm Diastolic Thickness by 2D (test code = 9171678) LVPWD (test code = 0.71 cm 0515940450) PW (test code = 0.71 cm 0.6-1.2 1480920291) EF(Teich) (test code = 61.00 % 0167107196) LVIDS (test code = 3.00 cm 5892298407) Left Ventricular End 35.6 mL Systolic Volume by Teichholz Method (test code = 0897365) FS (test code = 33 % 1823457311) EF - 2D (test code = 61.00 % 54944509) LA size (test code = 2.9 cm 0267709327) Pulmonic Regurgitant End 161.8 cm/s Max Velocity (test code = 7433280054) LAV(MOD-sp4) (test code 29.10 mL = 6795982208) MV stenosis pressure 1/2 65.3 ms time (test code = 0700282566) E wave decelartion time 0.23 s (test code = 1517984905) MV Peak E All (test code 121.5 cm/s = 0882877442) MV Peak A All (test code 43.8 cm/s = 0666715822) E/A ratio (test code = ratio 8074424516) MR max PG (test code = 65.00 mm[Hg] 6901967148) MR max all (test code = 401.70 cm/s 0557171415) Mr max all (test code = 401.7 m/s 9786595143) MV Prop V (test code = 44.60 cm/s 5797840560) MV E/e' septal (test 19.3 cm/s code = 6593021122) Tapse (test code = 2.13 cm 9703696084) LVOT stroke volume (test 72.90 cm3 code = 3162826651) LVOT peak all (test code 144.5 cm/s = 9537241097) LVOT mn grad (test code mmHg = 6081016571) AV LVOT peak gradient mmHg (test code = 3996636840) LVOT peak VTI (test code 28.5 cm = 6669332596) LV V1 mean (test code = 104.40 cm/s 7298892657) Aortic valve mean 112.8 cm/s velocity (test code = 0447852018) Ao peak all (test code = 161.3 cm/s 2423493138) Ao VTI (test code = 34.5 cm 5615737103) AV area by cont VTI 2.1 cm2 (test code = 4148503022) AV area peak all (test 2.3 cm2 code = 5535689832) Ao max PG (test code = 10.40 mm[Hg] 2359635244) AV peak gradient (test mmHg code = 5039226644) AV valve area (test code 2.11 cm2 = 0269855086) AV mean gradient (test mmHg code = 6651806996) Radiology Study observation (narrative) (test code = 31549-9) SANFORD (test code = SANFORD) ?Left?Ventricle: Left ventricle size is normal. Normal wall thickness. Normal wall motion. Normal systolic function with a visually estimated EF of 60 - 65%. Normal diastolic function. ?Tricuspid?Valve: Insufficient regurgant jet to estimate RVSP. ?RA pressure is 0-5 mmHg. Left VentricleLeft ventricle size is normal. Normal wall thickness. Normal wall motion. Normal systolic function with a visually estimated EF of 60 - 65%. Normal diastolic function.Right VentricleRight ventricle size is normal. Normal systolic function.Left AtriumLeft atrium size is normal.Right AtriumRight atrium size is normal.Mitral ValveMitral valve structure is normal. Trace transvalvular regurgitation.Tricusp id ValveTricuspid valve structure is normal. Trace transvalvular regurgitation. Insufficient regurgant jet to estimate RVSP. RA pressure is 0-5 mmHg.Aortic ValveAortic valve structure is normal.Pulmonic ValveNot well visualized. Pulmonic valve is normal in structure and function.Ascending AortaAorta is normal in size.PericardiumThe pericardium is normal.Study DetailsStudy quality was adequate. A complete echocardiogram was performed using 2D, color flow Doppler and spectral Doppler. [facility] [id number] 13:36:00 Test Item Value Reference Range Interpretation Comments POCT PREG (test code = 1605) Negative On board controls acceptable with Present C Line (test code = 3574) POCT PREG LOT # (test code = 3575) [id number] POCT PREG TEST DATE (test 06/30/2023 code = 3576) Lab Interpretation (test code = Normal 25796-1) [facility] [id number] 06:00:00 Test Item Value Reference Range Interpretation Comments POCT PREG (test code = 1605) negative On board controls acceptable with positive C Line (test code = 3574) POCT PREG LOT # (test code = 3575) [id number] POCT PREG TEST DATE (test 07/31/2022 code = 3576) Lab Interpretation (test code = Normal 26533-9) [facility]
[2022-04-17 21:32] LABS: Urine Blood Negative (Negative); Urine Glucose Negative (Negative); Urine Protein Negative (Negative); Urine Specific Gravity 1.025 (1.005-1.030)
[2022-04-17 21:52] LABS: Urine Mucus Slight /HPF (None Seen); Urine RBC <5 /HPF (None Seen)
[2022-04-17 21:53] LABS: Barbiturates POSITIVE (NEGATIVE); Benzodiazepines POSITIVE (NEGATIVE); Cocaine NEGATIVE (NEGATIVE); METHAMPHETAM NEGATIVE (NEGATIVE); Methadone NEGATIVE (NEGATIVE); Opiates NEGATIVE (NEGATIVE); Phencyclidine NEGATIVE (NEGATIVE); THC Cannibis NEGATIVE (NEGATIVE)
[2022-04-17 22:09] LABS: Urine Specific Gravity/Preg 1.025 (1.005-1.030)
[2022-04-17 22:18] LABS: Absolute Lymphocytes (CBC) 2.1 K/uL (0.7-4.9); Hematocrit 38.5 % (36.0-45.0); Lymphocytes % 28.8 % (15.3-44.8); MCV 91.2 fL (80-100); MPV 8.9 fL (7.6-11.3); RBC Red Blood Cell Count 4.22 M/uL (3.86-4.86)
--- NOTE | 2022-04-17 22:21 | RAD REPORT ---
EXAM DESCRIPTION: CT - Head Brain Wo Cont - 04/17/2022 10:13 pm CLINICAL HISTORY: Syncope COMPARISON: None. TECHNIQUE: Computed axial tomography of the head was obtained. IV contrast was not requested. All CT scans are performed using dose optimization technique as appropriate and may include automated exposure control or mA/KV adjustment according to patient size. FINDINGS: An intracranial bleed is not seen . The ventricles are normal in caliber. No significant hypodense areas within the brain visualized No extra-axial fluid collection is noted. Fluid within the sinuses/ mastoids is not seen. Mild chronic sphenoid sinusitis IMPRESSION: No acute intracranial abnormality is seen. If patient's symptoms persist MRI of the bra in would be recommended.
[2022-04-17] MEDS ORDERED: NA CHLORIDE 0.9% 1,000 ML ONE (22:34)
[2022-04-17] MEDS ORDERED: MORPHINE 4 MG/ML SYR ONE (22:34)
[2022-04-17] MEDS ORDERED: ONDANSETRON 4 MG/2 ML VIAL ONE (22:34)
[2022-04-17 22:36] LABS: Albumin 3.7 g/dL (3.4-5.0); Bilirubin Total 0.2 mg/dL (0.2-1.0); Potassium 3.7 mmol/L (3.5-5.1); Troponin High Sensitivity 8.6 pg/mL (<58.9)
--- NOTE | 2022-04-17 23:22 | RAD REPORT ---
EXAM DESCRIPTION: Zandra Single View04/17/2022 11:02 pm CLINICAL HISTORY: Cough COMPARISON: 2020 FINDINGS: The lungs appear clear of acute infiltrate. The heart is normal size IMPRESSION: No acute abnormalities displayed
--- NOTE | 2022-04-18 02:14 | EDPHYS ---
Physician Documentation [facility] Name: Marcelina Dodson Age: 31 yrs Sex: Female : 1990 Arrival Date: 04/17/2022 Time: 20:22 Bed 14 Private MD: ED Physician Fredy Ramirez HPI: 04/17 22:25 This 31 yrs old Female presents to ER via Ambulatory with complaints of martinez Passed Out Prior To Arrival, Headache, Pain All Over. 22:25 The patient has experienced syncope, collapsed. Onset: The symptoms/episode martinez began/occurred just prior to arrival. Duration: This was a single episode, that lasted an unknown period of time. Context: the episode(s) was witnessed, by family, occurred at home. Associated injury: The patient did not suffer any apparent associated injury. Associated signs and symptoms: The patient has no apparent associated signs or symptoms. Current symptoms: Currently, the patient is not experiencing any symptoms, the patient feels back to baseline, no decreased level of consciousness, no confusion, no dysphasia, no headache, no paralysis, no visual changes. The patient has not experienced similar symptoms in the past. 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 - Social history:: Smoking status: Patient denies any tobacco usage or history of. - Family history:: not pertinent. ROS: 22:25 Constitutional: Negative for fever, chills, and weight loss, Eyes: Negative for injury, martinez pain, redness, and discharge, ENT: Negative for injury, pain, and discharge, Neck: Negative for injury, pain, and swelling, Cardiovascular: Negative for chest pain, palpitations, and edema, Respiratory: Negative for shortness of breath, cough, wheezing, and pleuritic chest pain, Abdomen/GI: Negative for abdominal pain, nausea, vomiting, diarrhea, and constipation, Back: Negative for injury and pain, : Negative for injury, bleeding, discharge, and swelling, MS/Extremity: Negative for injury and deformity, Skin: Negative for injury, rash, and discoloration, Psych: Negative for depression, anxiety, suicide ideation, homicidal ideation, and hallucinations, Allergy/Immunology: Negative for hives, rash, and allergies, Endocrine: Negative for neck swelling, polydipsia, polyuria, polyphagia, and marked weight changes, Hematologic/Lymphatic: Negative for swollen nodes, abnormal bleeding, and unusual bruising. 22:25 Neuro: Positive for syncope, weakness. Exam: 22:25 Constitutional: This is a well developed, well nourished patient who is awake, alert, martinez and in no acute distress. Head/Face: Normocephalic, atraumatic. Eyes: Pupils equal round and reactive to light, extra-ocular motions intact. Lids and lashes normal. Conjunctiva and sclera are non-icteric and not injected. Cornea within normal limits. Periorbital areas with no swelling, redness, or edema. ENT: Nares patent. No nasal discharge, no septal abnormalities noted. Tympanic membranes are normal and external auditory canals are clear. Oropharynx with no redness, swelling, or masses, exudates, or evidence of obstruction, uvula midline. Mucous membranes moist. Neck: Trachea midline, no thyromegaly or masses palpated, and no cervical lymphadenopathy. Supple, full range of motion without nuchal rigidity, or vertebral point tenderness. No Meningismus. Chest/axilla: Normal chest wall appearance and motion. Nontender with no deformity. No lesions are appreciated. Cardiovascular: Regular rate and rhythm with a normal S1 and S2. No gallops, murmurs, or rubs. Normal PMI, no JVD. No pulse deficits. Respiratory: Lungs have equal breath sounds bilaterally, clear to auscultation and percussion. No rales, rhonchi or wheezes noted. No increased work of breathing, no retractions or nasal flaring. Abdomen/GI: Soft, non-tender, with normal bowel sounds. No distension or tympany. No guarding or rebound. No evidence of tenderness throughout. Back: No spinal tenderness. No costovertebral tenderness. Full range of motion. Skin: Warm, dry with normal turgor. Normal color with no rashes, no lesions, and no evidence of cellulitis. MS/ Extremity: Pulses equal, no cyanosis. Neurovascular intact. Full, normal range of motion. Neuro: Awake and alert, GCS 15, oriented to person, place, time, and situation. Cranial nerves II-XII grossly intact. Motor strength 5/5 in all extremities. Sensory grossly intact. Cerebellar exam normal. Normal gait. Psych: Awake, alert, with orientation to person, place and time. Behavior, mood, and affect are within normal limits. 22:25 ECG was reviewed by the Attending Physician. Vital Signs: 20:31 BP 109 / 83; Pulse 83; Resp 18; Temp 98.1; Pulse Ox 100% on R/A; Weight 58.97 kg; tw5 Height 5 ft. 4 in. (162.56 cm); Pain 10/10; 22:46 BP 104 / 68; Pulse 68; Resp 13; Pulse Ox 100% on R/A; lg3 23:22 BP 114 / 72 Supine; Pulse 62; Resp 16; Pulse Ox 100% on R/A; mh5 23:24 BP 107 / 75 Sitting; Pulse 69; Resp 16; Pulse Ox 100% on R/A; mh5 23:26 BP 101 / 71 Standing; Pulse 88; Resp 16; Pulse Ox 100% on R/A; mh5 04/18 01:22 BP 105 / 72; Pulse 60; Resp 18 S; Pulse Ox 100% on R/A; tw5 02:29 BP 112 / 71; Pulse 57; Resp 16 S; Pulse Ox 100% on R/A; as6 04/17 20:31 Body Mass Index 22.31 (58.97 kg, 162.56 cm) tw5 MDM: 04/17 21:19 Patient medically screened. martinez 22:28 Differential Diagnosis: cardiac arrhythmia, emotional response, GI bleed, idiopathic martinez syncope, seizure, vasovagal episode. Data reviewed: vital signs, nurses notes, lab test result(s), EKG, radiologic studies, CT scan, plain films. Data interpreted: property assessment monitor: rate is 83 beats/min, rhythm is regular, Pulse oximetry: on room air is 100 %. Test interpretation: by ED physician or midlevel provider: ECG, plain radiologic studies. Counseling: I had a detailed discussion with the patient and/or guardian regarding: the historical points, exam findings, and any diagnostic results supporting the discharge/admit diagnosis, lab results, radiology results. 04/17 21:18 Order name: CBC with Diff; Complete Time: 23:10 [facility] 04/17 21:18 Order name: Comprehensive Metabolic Panel; Complete Time: 23:10 [facility] 04/17 21:18 Order name: Troponin High Sensitivity; Complete Time: 23:10 [facility] 04/17 21:18 Order name: UDS; Complete Time: 23:10 [facility] 04/17 21:18 Order name: Urine Microscopic Only; Complete Time: 23:10 [facility] 04/17 21:32 Order name: Urine Dipstick-Ancillary; Complete Time: 23:10 [facility] 04/17 21:18 Order name: Chest Single View XRAY; Complete Time: 23:50 [facility] 04/17 21:18 Order name: CT Head Brain wo Cont; Complete Time: 23:10 [facility] 04/17 21:32 Order name: Urine --Ancillary (enter results); Complete Time: 23:10 mw2 04/17 23:11 Order name: D-Dimer; Complete Time: 00:43 [facility] 04/18 00:43 Order name: US Extremity Venous W Compression Kole [facility] 04/18 00:43 Order name: CT Chest For PE Angio [facility] 04/18 02:16 Order name: INCENTIVE SPIROMETRY [facility] 04/17 21:18 Order name: EKG; Complete Time: 21:21 [facility] 04/17 21:18 Order name: EKG - Nurse/Tech; Complete Time: 21:48 [facility] 04/17 21:18 Order name: Urine Dipstick-Ancillary (obtain specimen); Complete Time: 21:32 [facility] 04/17 21:18 Order name: Urine Test (obtain specimen); Complete Time: 21:32 [facility] 04/17 23:11 Order name: Orthostatics; Complete Time: 23:29 [facility] EC:25 Rate is 66 beats/min. Rhythm is regular. QRS [place] is Normal. MT interval is normal. QRS martinez interval is normal. QT interval is normal. No Q waves. T waves are Normal. T waves are Inverted in leads V1, V2, V3. No ST changes noted. Clinical impression: No evidence of ischemia. Interpreted by me. Reviewed by me. Administered Medications: :52 Drug: NS 0.9% 1000 ml Route: IV; Rate: 1 bolus; Site: left antecubital; lg3 22:52 Drug: morphine 4 mg Route: IVP; Infused Over: 4 mins; Site: left antecubital; lg3 23:13 Follow up: Response: No adverse reaction; Marked relief of symptoms lg3 22:52 Drug: Zofran (Ondansetron) 4 mg Route: IVP; Site: left antecubital; lg3 23:13 Follow up: Response: No adverse reaction lg3 04/18 02:26 Drug: morphine 4 mg Route: IVP; Infused Over: 4 mins; Site: left antecubital; as6 02:29 Follow up: Response: No adverse reaction; Marked relief of symptoms as6 02:26 Drug: Zofran (Ondansetron) 4 mg Route: IVP; Site: left antecubital; as6 02:29 Follow up: Response: No adverse reaction as6 Disposition Summary: 04/18/22 02:14 Discharge Ordered Location: Home martinez Problem: new martinez Symptoms: have improved martinez Condition: Stable martinez Diagnosis - Palpitations martinez - Other malaise martinez - Syncope Near martinez Followup: martinez - With: Private Physician - When: 2 - 3 days - Reason: Recheck today's complaints, Continuance of care, Re-evaluation by your physician Followup: martinez - With: - When: 2 - 3 days - Reason: Recheck today's complaints, Re-evaluation by your physician Discharge Instructions: - Discharge Summary Sheet martinez - Near-Syncope martinez - Palpitations martinez - Syncope martinez - Weakness martinez - Near-Syncope, Mciu-js-Lrjh martinez - Syncope, Oyjm-im-Vwvj martinez - Weakness, Jjqg-op-Mgnq martinez - Aspirin and Your Heart martinez - Palpitations, Ikwu-eh-Thzd martinez Forms: - Medication Reconciliation Form martinez - Thank You Letter martinez - Antibiotic Education martinez - Prescription Opioid Use martinez Prescriptions: - Tylenol-Codeine #3 300 mg-30 mg Oral - take 2 tablet by ORAL route every 6 hours; 24 tablet; Refills: 0, Product martinez Selection Permitted Signatures: Dispatcher [employer] Fredy Daniels MD MD cha Gibson, Lacie, RN RN lg3 Sarina Cortes tw5 Zach Barksdale RN RN as6
--- NOTE | 2022-04-18 02:14 | ER ---
Nurse's Notes [facility] Name: Marcelina Dodson Age: 31 yrs Sex: Female : 1990 Arrival Date: 04/17/2022 Time: 20:22 Bed 14 Private MD: Diagnosis: Palpitations;Other malaise;Syncope Near Presentation: 04/17 20:31 Chief complaint: Patient states: "I fainted, I went to [facility], they said I could have tw5 Pots, or an immune disease. None of the diagnosis made sense. ". Coronavirus screen: Vaccine status: Patient reports being unvaccinated. Ebola Screen: Patient negative for fever greater than or equal to 101.5 degrees Fahrenheit, and additional compatible Ebola Virus Disease symptoms Patient denies exposure to infectious person. Patient denies travel to an Ebola-affected area in the 21 days before illness onset. Initial Sepsis Screen: Does the patient meet any 2 criteria? No. Patient's initial sepsis screen is negative. Does the patient have a suspected source of infection? No. Patient's initial sepsis screen is negative. Risk Assessment: Do you want to hurt yourself or someone else? Patient reports no desire to harm self or others. Onset of symptoms is unknown. 20:31 Method Of Arrival: Ambulatory tw5 20:31 Acuity: PEPE 3 tw5 Triage Assessment: 20:34 General: Appears in no apparent distress. Behavior is calm, cooperative, appropriate tw5 for age. Neuro: Level of Consciousness is awake, alert, obeys commands, Oriented to person, place, time, situation. MANAGER NEONATAL: 20:34 LMP 03/17/2022 tw5 Historical: - Allergies: 20:34 Ibuprofen; tw5 20:34 Tramadol HCl; tw5 - PMHx: 20:34 UTI, Kidney infections/stones; tw5 - Immunization history:: Flu vaccine is not up to date. - Social history:: Smoking status: Patient denies any tobacco usage or history of. - Family history:: not pertinent. Screenin:07 Abuse screen: Denies threats or abuse. Denies injuries from another. Nutritional lg3 screening: No deficits noted. Tuberculosis screening: No symptoms or risk factors identified. Fall Risk Fall in past 12 months (25 points). No secondary diagnosis (0 pts). IV access (20 points). Ambulatory Aid- None/Bed Rest/Nurse Assist (0 pts). Gait- Normal/Bed Rest/Wheelchair (0 pts) Mental Status- Oriented to own ability (0 pts). Total Serrano Fall Scale indicates Low Risk Score (25-44 pts). Side Rails Up X 2 Frequent Obs/Assesments occuring Family Present and informed to notify staff if they need to leave bedside As available Patient and Family Educated on Fall Prevention Program and strategies. Assessment: 21:07 General: Appears in no apparent distress. comfortable, Behavior is calm, cooperative. lg3 Pain: Complains of pain in back Pain currently is 6 out of 10 on a pain scale. Quality of pain is described as crampy, heavy, pressure, squeezing, Is continuous, Noted to be resistant to movement. Neuro: No deficits noted. Mejía Agitation-Sedation Scale (RASS): 0 - Alert and Calm Level of Consciousness is awake, alert, obeys commands, Oriented to person, place, time, situation. Cardiovascular: No deficits noted. Reports lightheadedness, Capillary refill < 3 seconds Clubbing of nail beds is absent JVD is absent Patient's skin is warm and dry. Respiratory: No deficits noted. Airway is patent Trachea midline Respiratory effort is even, unlabored, Respiratory pattern is regular, symmetrical, Breath sounds are clear bilaterally. GI: No deficits noted. No signs and/or symptoms were reported involving the gastrointestinal system. Abdomen is round non-distended, Bowel sounds present X 4 quads. Abd is soft and non tender X 4 quads. : No deficits noted. No signs and/or symptoms were reported regarding the genitourinary system. EENT: No deficits noted. No signs and/or symptoms were reported regarding the EENT system. Derm: No deficits noted. No signs and/or symptoms reported regarding the dermatologic system. Skin is intact, is healthy with good turgor, Skin is dry, Skin is normal, Skin temperature is warm. Musculoskeletal: No deficits noted. Circulation, motion, and sensation intact. Range of motion: intact in all extremities, Reports generalized weakness. 22:46 Reassessment: Patient appears in no apparent distress at this time. No changes from lg3 previously documented assessment. Patient and/or family updated on plan of care and expected duration. Pain level reassessed. Patient is alert, oriented x 3, equal unlabored respirations, skin warm/dry/pink. 04/18 00:17 Reassessment: Patient appears in no apparent distress at this time. No changes from tw5 previously documented assessment. Patient and/or family updated on plan of care and expected duration. Pain level reassessed. Patient is alert, oriented x 3, equal unlabored respirations, skin warm/dry/pink. 02:29 Reassessment: Patient appears in no apparent distress at this time. No changes from as6 previously documented assessment. Patient and/or family updated on plan of care and expected duration. Pain level reassessed. Patient is alert, oriented x 3, equal unlabored respirations, skin warm/dry/pink. Patient states feeling better. Patient states symptoms have improved. Vital Signs: 04/17 20:31 BP 109 / 83; Pulse 83; Resp 18; Temp 98.1; Pulse Ox 100% on R/A; Weight 58.97 kg; tw5 Height 5 ft. 4 in. (162.56 cm); Pain 10/10; 22:46 BP 104 / 68; Pulse 68; Resp 13; Pulse Ox 100% on R/A; lg3 23:22 BP 114 / 72 Supine; Pulse 62; Resp 16; Pulse Ox 100% on R/A; mh5 23:24 BP 107 / 75 Sitting; Pulse 69; Resp 16; Pulse Ox 100% on R/A; mh5 23:26 BP 101 / 71 Standing; Pulse 88; Resp 16; Pulse Ox 100% on R/A; mh5 04/18 01:22 BP 105 / 72; Pulse 60; Resp 18 S; Pulse Ox 100% on R/A; tw5 02:29 BP 112 / 71; Pulse 57; Resp 16 S; Pulse Ox 100% on R/A; as6 04/17 20:31 Body Mass Index 22.31 (58.97 kg, 162.56 cm) tw5 ED Course: 04/17 20:22 Patient arrived in ED. bp1 20:34 Triage completed. tw5 20:34 Arm band placed on. tw5 21:07 Inserted saline lock: 22 gauge in left antecubital area, using aseptic technique. Blood lg3 collected. 21:19 Fredy Ramirez MD is Attending Physician. martinez 21:22 Sadie Bangura, RHONA is Primary Nurse. lg3 21:32 Urine Microscopic Only Sent. oe 21:32 UDS Sent. oe 21:48 UDS Sent. mh5 21:49 Patient has correct armband on for positive identification. Placed in gown. Bed in low mh5 position. Call light in reach. Side rails up X 1. Adult w/ patient. Warm blanket given. telemetry monitor on. Pulse ox on. NIBP on. 21:49 Initial lab(s) drawn, by ED staff, sent to lab. Urine collected: clean catch specimen, 5 cloudy, EKG done, by ED staff, reviewed by Fredy Ramirez MD. 21:50 Urine Microscopic Only Sent. mh5 21:50 Urine --Ancillary (enter results) Sent. mh5 22:06 Troponin High Sensitivity Sent. lg3 22:06 Comprehensive Metabolic Panel Sent. lg3 22:06 CBC with Diff Sent. lg3 22:14 CT Head Brain wo Cont In Process Unspecified. EDMS 23:04 Chest Single View XRAY In Process Unspecified. EDMS 23:29 D-Dimer Sent. 5 04/18 00:25 Notified ED physician of a critical lab result(s). d-dimer 505. tw5 01:05 US Extremity Venous W Compression Kole In Process Unspecified. EDMS 01:37 CT Chest For PE Angio In Process Unspecified. EDMS 02:14 Prasad Toor MD is Referral Physician. [facility] 02:17 INCENTIVE SPIROMETRY Sent. as6 02:30 No provider procedures requiring assistance completed. IV discontinued, intact, as6 bleeding controlled, No redness/swelling at site. Pressure dressing applied. Administered Medications: 04/17 22:52 Drug: NS 0.9% 1000 ml Route: IV; Rate: 1 bolus; Site: left antecubital; lg3 22:52 Drug: morphine 4 mg Route: IVP; Infused Over: 4 mins; Site: left antecubital; lg3 23:13 Follow up: Response: No adverse reaction; Marked relief of symptoms lg3 22:52 Drug: Zofran (Ondansetron) 4 mg Route: IVP; Site: left antecubital; lg3 23:13 Follow up: Response: No adverse reaction [facility] 04/18 02:26 Drug: morphine 4 mg Route: IVP; Infused Over: 4 mins; Site: left antecubital; as6 02:29 Follow up: Response: No adverse reaction; Marked relief of symptoms as6 02:26 Drug: Zofran (Ondansetron) 4 mg Route: IVP; Site: left antecubital; as6 02:29 Follow up: Response: No adverse reaction as6 Medication: 02:31 VIS not applicable for this client. as6 Outcome: 02:14 Discharge ordered by MD. henriquez 02:30 Discharged to home ambulatory, with significant other. as6 02:30 Condition: stable 02:30 Discharge instructions given to patient, significant other, Instructed on discharge instructions, follow up and referral plans. medication usage, Demonstrated understanding of instructions, follow-up care, medications, Prescriptions given X 1. 02:31 Patient left the ED. as6 Signatures: Dispatcher [employer] EDMS Fredy Ramirez MD MD cha Espinosa, Orlando oe Martinez, Maria 5 Sadie Bangura, RN RN lg3 Tania Pereyra Tiffany 5 Zach Barksdale, RHONA RN as6
[2022-04-18] MEDS ORDERED: ONDANSETRON 4 MG/2 ML VIAL ONE (02:25)
[2022-04-18] MEDS ORDERED: MORPHINE 4 MG/ML SYR ONE (02:25)
--- NOTE | 2022-04-19 09:44 | RAD REPORT ---
EXAM DESCRIPTION: US - Extrem Venous W Compress Kole - 04/18/2022 1:03 am CLINICAL HISTORY: 31 years, Female, PAIN COMPARISON: None. FINDINGS: Grayscale imaging as well as spectral and color Doppler interrogation of the deep venous s ystem of bilateral lower extremity was performed with visualization from the common femoral veins to the popliteal veins and posterior tibial vein. There is normal compressibility, augmentation and flow with no visualized thrombus. No focal fluid collection is identified. IMPRESSION: No bilateral lower extremity DVT. Electronically signed by: Delvis Raymond DO 04/18/2022 1:26 AM CDT Due to temporary technical issues with the PACS/Fluency reporting system, reports are being signed by the in house radiologists without review as a courtesy to insure prompt reporting. The interpreting radiologist is fully responsible for the content of the report.
--- NOTE | 2022-04-19 10:14 | RAD REPORT ---
EXAM DESCRIPTION: CT - Chest For Pe Angio - 04/18/2022 1:36 am CLINICAL HISTORY: The patient is 31 years old and is Female; CP TECHNIQUE: Axial computed tomographic angiography images of the chest with intravenous contrast. T his CT exam was performed using one or more of the following dose reduction techniques: automated e xposure control, adjustment of the mA and/or kV according to patient size, and/or use of iterative re construction technique. MIP reconstructed images were created and reviewed. Oblique reformatted images were created and reviewed. DLP: 217 mGy*cm COMPARISON: Chest radiograph dated 04/17/2022. FINDINGS: Limited evaluation due to exclusion of the lung bases and upper abdomen of the examination . PULMONARY ARTERIES: Unremarkable. No pulmonary embolism. AORTA: No acute findings. No thoracic aortic aneurysm. LUNGS: No mass. No focal consolidation. PLEURAL SPACE: Unremarkable. No significant effusion. No pneumothorax. HEART: Unremarkable. No cardiomegaly. No significant pericardial effusion. No evidence of RV dysfunction. MEDIASTINUM: Soft tissue density in the anterior mediastinum, likely thymic remnant. BONES/JOINTS: No acute fracture. No dislocation. SOFT TISSUES: Unremarkable. LYMPH NODES: Unremarkable. No enlarged lymph nodes. IMPRESSION: 1. Limited evaluation due to exclusion of the lung bases and upper abdomen of the exam ination. 2. No pulmonary embolism. No acute intrathoracic abnormality. Electronically signed by: Delvis Raymond DO 04/18/2022 1:59 AM CDT Due to temporary technical issues with the PACS/Fluency reporting system, reports are being signed by the in house radiologists without review as a courtesy to insure prompt reporting. The interpreting radiologist is fully responsible for the content of the report.
[2022-04-19 16:00] VITALS: TEMP 98.1; O2SAT 100
[2022-04-19 16:14] VITALS: BP 112/71
--- NOTE | 2022-04-21 06:43 | EKG ---
Test Date: 2022-04-17 Test Time: 21:44:39 [employer] Agent: ERMA MEASUREMENT RESULTS: Intervals: Rate: 66 [place]: 140 QRSD: 92 QT: 398 QTc: 417 [place]: P: 64 [place]: 140 QRS: 74 T: 60 INTERPRETIVE STATEMENTS: Normal sinus rhythm with sinus arrhythmia Possible Left atrial enlargement Incomplete right bundle branch block T wave abnormality, consider anterior ischemia Abnormal ECG No previous ECG available for comparison Electronically Signed On 04-21-22 06:32:50 CDT by Prasad Toro
== END 2022-04-18 02:31 | disposition home or self-care (01) ==
LOC: ER 20:20
DX: R00.2 Palpitations (principal); R55 Syncope and collapse; R53.81 Other malaise; R53.1 Weakness
CPT/HCPCS: 36415; 70450; 71045; 71275; 80053; 80307; 81003; 81015; 81025; 84484; 85025; 85379; 93005; 93970; 96374; 96375; 99285; J2405; J7030; Q9967

== ENCOUNTER 2022-06-07 09:48 | Emergency (ER) | payer SELFPAY ==
--- OUTSIDE RECORDS SUMMARY | 2022-06-07 09:53 | XMS REPORT | Continuity of Care Document ---
:1990 Author Organization [facility] t Address [address] [place] [address] Care Team Providers Name Role Phone Zofia Wilson Primary Care Physician TENNILLE GARBER Attending Clinician Unavailable Tennille Contreras Attending Clinician Aleena Hankins RN Attending Clinician Rick Rutledge Attending Clinician Unavailable Dotty Suárez LVN Attending Clinician CURLY CESPEDES Attending Clinician Unavailable Tatum Shabazz Attending Clinician Abdulaziz Epstein MD Attending Clinician Nancy Hicks MD Attending Clinician [phone] Curly Cespedes MD Attending Clinician Marc JHAVERI Attending Clinician Unavailable Marc Shaw Attending Clinician Tania Hatch Attending Clinician Dwayne RIVERA Arthurpoli Attending Clinician Pcp, Patient Does Not Have A Attending Clinician [phone] UNKNOWN, ATTENDING Attending Clinician Unavailable TABITHA REED Attending Clinician Unavailable thomas Attending Clinician Unavailable Nancy Hicks MD Admitting Clinician [phone] NANCY HICKS Admitting Clinician Unavailable thomas Admitting Clinician Unavailable Payers Payer Name Policy Type Policy Number Effective Date Expiration Date S ource Problems Condition Condition Condition Status Onset Resolution Last Treating Co mments Source Name Details Category Date Date Treatment Clinician Date Bradycardi Bradycardi Disease Active U nivers a a 9-11 ity of 00:00: [place] [facility] Hypotensio Hypotensio Disease Active U nivers n n 9-11 ity of 00:00: [place] [facility] Hypothyroi Hypothyroi Disease Active U nivers dism dism 9- ity of 00:00: [place] [facility] Elevated Elevated Disease Active Unive rs brain brain -11 ity of natriureti natriureti 00:00[place] c peptide c peptide 00 Medi jai (BNP) (BNP) Branch level level Cigarette Cigarette Disease Active Uni vers smoker smoker -11 ity of 00:00: [place] [facility] Syncope, Syncope, Disease Active Unive rs unspecifie unspecifie 9-10 it y of d syncope d [place]ope 00:[place] type 00 [facility] Branch No known No known Disease Unive rs active active ity of problems problems [facility] [place] [facility] Allergies, Adverse Reactions, Alerts Allergy Allergy Status Severity Reaction(s) Onset Inactive Treating Comm ents Source Name Type Date Date Clinician DEXTROAM DRUG Active Other-Cmnt Univ ers PHETAMIN 9-10 ity of E-AMPHET 00:00: [place] AMINE 00 [facility] Dextroam Propensi Active Other - See U nivers phetamin ty to comments 9-10 ity of e-Amphet adverse 00:00: [place] amine reaction [facility] TRAMADOL DRUG Active Rash Univers INGREDI 08-22 ity of 00:00: [place] 00 [facility] Tramadol Propensi Active Rash Univer s ty to 08-22 ity of adverse 00:00: [place] reaction 00 [facility] NO KNOWN Drug Active Univers ALLERGIE Class ity of S [facility] [place] [facility] Social History Social Habit Start Date Stop Date Quantity Comments Source History of tobacco Passive smoker Un iversity of use [facility] [place] [facility] ASSERTION [facility] Exposure to 2022-05-27 2022-06-06 Not sure [facility] SARS-CoV-2 (event) 00:00:00 08:16:00 [facility] [place] [facility] Alcohol intake 2022-06-06 2022-06-06 0 /d University 00:00:00 00:00:00 [facility] [place] [facility] Cigarettes smoked 2022-04-13 2022-04-13 Univers ity of current (pack per 00:00:00 00:00:00 [facility] ) - Reported Branch Tobacco use and 2022-04-13 2022-04-13 Smokeless Universit y of exposure 00:00:00 00:00:00 tobacco non-user [facility] Sex Ass[birth year] At [birth year] Universit y of 00:00:00 00:00:00 [facility] [place] [facility] Smoking Status Start Date Stop Date Source Smokes tobacco daily 2022-04-13 00:00:00 [facility]ations Ordered Filled Start Stop Current Ordering Indication Dosage Frequency Signature Comments Components Source Medication Medication Date Date Medication? Clinician (SIG) Name Name HYDROcodone 2021-08 No 1{tbl} 1 tablet, Univers -acetaminop 08-06 Oral, ity of hen (NORCO 15:15: 15:14 ONCE, 1 [place] 5) 5-325 mg 00 :00 dose, On Medi jai tablet 1 [place] tablet 06/06/22 at 0915, FLY ketorolac 2021-08 60mg 60 mg, Unive rs (TORADOL) 08-06 Intramuscu ity of injection 15:15: 15:16 lar, ONCE, [place] 60 mg 00 :00 1 dose, On Medical [place] 06/06/22 at 0915, FLY levothyroxi Yes [id number] 100ug Take 1 Univers ne 100 mcg 9-17 tablet by ity of tablet 00:00: mouth [place] 00 every Medical morning. Branch levothyroxi 2021-0 Yes [id number] 100ug Take 1 Univers ne 100 mcg 9-17 tablet by ity of tablet 00:00: mouth [place] 00 every Medical morning. Branch levothyroxi 2021-0 Yes [id number] 100ug Take 1 Univers ne 100 mcg 9-17 tablet by ity of tablet 00:00: mouth [place] 00 every Medical morning. Branch levothyroxi 2021-0 Yes [id number] 100ug Take 1 Univers ne 100 mcg 9-17 tablet by ity of tablet 00:00: mouth [place] 00 every Medical morning. Branch levothyroxi 2021-0 Yes [id number] 100ug Take 1 Univers ne 100 mcg 9-17 tablet by ity of tablet 00:00: mouth [place] 00 every Medical morning. Branch levothyroxi 2021-0 Yes [id number] 100ug Take 1 Univers ne 100 mcg 9-17 tablet by ity of tablet 00:00: mouth [place] 00 every Medical morning. Branch levothyroxi 2021-0 Yes [id number] 100ug Take 1 Univers ne 100 mcg 9-17 tablet by ity of tablet 00:00: mouth [place] 00 every Medical morning. Branch levothyroxi 2021-0 Yes [id number] 100ug Take 1 Univers ne 100 mcg 9-17 tablet by ity of tablet 00:00: mouth [place] 00 every Medical morning. Branch levothyroxi 2021-0 Yes [id number] 100ug Take 1 Univers ne 100 mcg 9-17 tablet by ity of tablet 00:00: mouth [place] 00 every Medical morning. Branch amphetamine 2021-0 Yes 25mg Take 25 mg Univers -dextroamph 9-16 by mouth ity of etamine 11:43: every [place] (ADDERALL 45 morning. Medica l XR) 25 mg Branch 24 hr capsule amphetamine 2021-0 Yes 25mg Take 25 mg Univers -dextroamph 9-16 by mouth ity of etamine 11:43: every [place] (ADDERALL 45 morning. Medica l XR) 25 mg Branch 24 hr capsule amphetamine 2021-0 Yes 25mg Take 25 mg Univers -dextroamph 9-16 by mouth ity of etamine 11:43: every [place] (ADDERALL 45 morning. Medica l XR) 25 mg Branch 24 hr capsule amphetamine 2022-0 Yes 25mg Take 25 mg Univers -dextroamph 9-16 by mouth ity of etamine 11:43: every [place] (ADDERALL 45 morning. Medica l XR) 25 mg Branch 24 hr capsule amphetamine 2022-0 Yes 25mg Take 25 mg Univers -dextroamph 9-16 by mouth ity of etamine 11:43: every (ADDERALL 45 morning. Medica l XR) 25 mg Branch 24 hr capsule amphetamine 2022-0 Yes 25mg Take 25 mg Univers -dextroamph 9-16 by mouth ity of etamine 11:43: every [place] (ADDERALL 45 morning. Medica l XR) 25 mg Branch 24 hr capsule amphetamine 2022-0 Yes 25mg Take 25 mg Univers -dextroamph 9-16 by mouth ity of etamine 11:43: every [place] (ADDERALL 45 morning. Medica l XR) 25 mg Branch 24 hr capsule amphetamine 2022-0 Yes 25mg Take 25 mg Univers -dextroamph 9-16 by mouth ity of etamine 11:43: every [place] (ADDERALL 45 morning. Medica l XR) 25 mg Branch 24 hr capsule amphetamine 2022-0 Yes 25mg Take 25 mg Univers -dextroamph 9-16 by mouth ity of etamine 11:43: every [place] (ADDERALL 45 morning. Medica l XR) 25 mg Branch 24 hr capsule ketorolac 2021- No 30mg 30 mg, Unive rs (TORADOL) 04-16 Slow IV ity of injection 03:45: 02:55 Push, [place] 30 mg 00 :00 ONCE, 1 Medical dose, On [facility] 04/15/22 at 2245, Routine NaCl 0.9% 2021- No 1000mL at 250 Uni vers (NS) bolus 04-15 mL/hr, ity of infusion 21:00: 21:30 1,000 mL, [place] 1,000 mL 00 :36 IV Medical Piggyback, [place] ONCE, 1 dose, On [facility] 04/15/22 at 1600, FLY ketorolac 2021- No 30mg 30 mg, Unive rs (TORADOL) 04-15 Slow IV ity of injection 18:45: 18:02 Push, [place] 30 mg 00 :00 ONCE, 1 Medical dose, On Branch [place] 04/15/22 at 1345, Routine pantoprazol Yes 40mg 40 mg, Univ ers e 15 Oral, ity of (PROTONIX) 17:30: DAILY, [place] EC tablet 00 First dose Medi jai 40 mg on [place] Branch 04/15/22 at 1230, Until Discontinu ed, Routine gadobenate 2021- No [id number] .2mL/kg 11.3 mL Univers dimeglumine 04-15 (0.2 mL/kg i ty of (MULTIHANCE 16:00: 15:36 ?56.5 kg), [place] -20 mL) 00 :00 Intravenou Medica l injection s, ONCE, 1 Bran ch 11.3 mL dose, On [place] 04/15/22 at 1100, Routine acetaminoph 0 Yes 1{tbl} 1 tablet, Univers en-codeine 04-15 Oral, ity of (TYLENOL 12:30: Q4HPRN, [place] #3) 300-30 26 Starting Medic al mg tablet 1 on [facility] Branch tablet 04/15/22 at 0730, Until Discontinu ed, Routine, Pain (scale 4-6) HYDROcodone 0 Yes 1{tbl} 1 tablet, Univers -acetaminop 15 Oral, ity of hen (NORCO 12:30: Q4HPRN, [place] 5) 5-325 mg 16 Starting Medi jai tablet 1 on [facility] Branch tablet 04/15/22 at 0730, Until Discontinu ed, Routine, Pain (scale 7-10) sennosides- Yes 1{tbl} 1 tablet, Univers docusate 15 Oral, ity of sodium 02:00: DAILY, [place] (SENOKOT-S) 00 First dose Me dical 8.6-50 mg on Tue per tablet 04/14/22 at 1 tablet 2100, Until Discontinu ed, Routine ketorolac 2021- No 30mg 30 mg, Unive rs (TORADOL) 04-1414 Slow IV ity of injection 20:45: 20:48 Push, [place] 30 mg 00 :00 ONCE, 1 Medical dose, On Branch Tue04/14/22 at 1545, Routine lactated 2021- No 1000mL at 999 [facility] ers ringers IV 04-14 mL/hr, ity of infusion 18:00: 18:00 1,000 mL, [place] 1,000 mL 00 :00 Intravenou Medic al s, ONCE, 1 Branch dose, On Tue04/14/22 at 1300, Routine polyethylen 2021- No 17g 17 g, Univ ers e glycol 04-14 Oral, ity of 3350 powder 14:00: 01:50 DAILY, [place] 17 g 00 :52 First dose Medical on Tue04/14/22 at 0900, Until Discontinu ed, Routine magnesium 2021- No 4g 4 g, IV [facility] ers sulfate in 04-14 Piggyback, it y of water 4 13:30: 14:00 ONCE, 1 [place] gram/50 mL 00 :00 dose, On Medic al (8 %) IV Tue [place] Piggyback 4 04/14/22 at g 0830, Routine KCL 2021- No 40meq 40 mEq, Univers (KLOR-CON 04-14 Oral, ity of M20) tablet 13:30: 13:19 ONCE, 1 [place] 40 mEq 00 :00 dose, On Medical Tue [place] 04/14/22 at 0830, Routine cyclobenzap Yes 10mg [...] at 0600, Until Discontinu ed, Routine cyclobenzap 2021- No 5mg 5 mg, Univ ers rine [...] 55 :19 ( Medica l infusion .6094 Branch RTU [...] s vasopresso r at a time.
lidocaine 2021- No 5mL 5 mL, Univer s 1% (PF) 04-12 Subcutaneo ity o f (XYLOCAINE) 16:30: 17:45 us, ONCE, [place] injection 5 00 :00 1 dose, On Me dical mL Tue [place] 04/12/22 at 1130, Routine NaCl 0.9% Yes 10mL 10 mL, Univer s (NS) 04-12 Slow IV ity of injection 16:20: [place], PRN, [place] 10 mL 14 Starting Medical on Tue [place] 04/12/22 at 1120, Until Discontinu ed, Routine, line maintenanc e morpHINE (2 2021- No 2mg 2 mg, Slow Univers mg/mL) 04-12 IV Push, ity of injection 2 14:49: 12:30 Q6HPRN, [place] mg 56 :42 Starting Medical on [facility] 04/12/22 at 0949, Until [place] 04/15/22 at 0730, Routine, Pain (scale 7-10) HYDROcodone 2021- No 1{tbl} 1 tablet, Univers -acetaminop 04-12 Oral, ity of hen (NORCO 14:49: 12:30 Q4HPRN, [place] 5) 5-325 mg 30 :42 Starting Medi jai tablet 1 on [facility] tablet 04/12/22 at 0949, Until [place] 04/15/22 at 0730, Routine, Pain (scale 4-6) cholecalcif Yes 2000U 2,000 Univ ers genevieve 04-12 Units, ity of (vitamin 14:00: Oral, [place] D3) tablet 00 DAILY, Medical 2,000 Units First dose Br anch (after last modificati on) on [facility] 04/12/22 at 0900, Until Discontinu ed, Routine thiamine Yes 100mg 100 mg, Unive rs (VITAMIN 04-12 Oral, ity of B1) tablet 14:00: DAILY, [place] 100 mg 00 First dose Medical on [facility] 04/12/22 at 0900, Until Discontinu ed, Routine levothyroxi 2021- No 100ug 100 mcg, Univers ne 04-12 Intravenou ity of (SYNTHROID) 13:45: 13:52 s, ONCE, 1 [place] injection 00 :00 dose, On Medica l 100 mcg [facility] 04/12/22 at 0845, Routine levothyroxi 2021- No 50ug 50 mcg, Un jg ne 04-12 Oral, ity of (SYNTHROID) 11:00: 16:20 QAM-0600, [place] tablet 50 00 :48 First dose Medi jai mcg (after Branch last modificati on) on [facility] 04/12/22 at 0600, Until Discontinu ed, Routine morpHINE (2 2021- No 2mg 2 mg, Slow Univers mg/mL) 04-12 IV Push, ity of injection 2 09:14: 09:27 PRN, 1 [place] mg 26 :00 dose, Medical Starting Branch on [facility] 04/12/22 at 0414, Until Tue04/12/22 at 0427, Routine, headache DOPamine 2021- No 2.5ug/k 2.5-7.5 Un jg 800 mg/500 04-12 g/min mcg/kg/min i ty of mL (1,600 02:53: 16:32 ?55.5 kg [place] mcg/mL) 09 :25 ( Medica l infusion .6094 Branch RTU mL/hr, rounded to 5.2-15.61 mL/hr), IV Infusion, TITRATE, SBP Goal 100-140 mmHg, HR > 60, Starting on [place] 04/11/22 at 2153
In itiate infusion at [...] ity of tablet 600 02:52: 15:41 TIDPRN, [place] mg 32 :06 Starting Medical on Counts Include [facility] 04/11/22 at 2152, Until [facility] 04/12/22 at 1041, Routine, Pain (scale 1-3) DOPamine 2021- No 2.5ug/k 2.5-7.5 Un jg 800 mg/500 04-1212 g/min mcg/kg/min i ty of mL (1,600 02:39: 02:53 ?55.5 kg [place] mcg/mL) 25 :28 ( Medica l infusion .6094 Branch RTU mL/hr, rounded to 5.2-15.61 mL/hr), IV Infusion, TITRATE, SBP Goal 100-140 mmHg, HR > 60, Starting on [place] 04/11/22 at 2139
In itiate infusion at 2.5 mcg/kg/min . &nb sp;Increas e by 2.5 mcg/kg/min every 1 minute to 5 minutes as needed to reach and maintain goal blood pressure.& nbsp;&nbsp ;Maximum dose = 7.5 mcg/kg/min . If goal not maintained at maximum allowed dose, contact prescriber . &nb sp;Adminis ter only one peripheral intravenou s vasopresso r at a time.
hydrocortis 2021- No 50mg 50 mg, Uni vers one [...] Q6HPRN, Medical 10 mg Starting Branch on [place] 04/11/22 at 1628, Until Discontinu ed, Routine, [...] (after Medical last Branch modificati on) on [place] 04/11/22 at 1115, Until Discontinu ed, Routine cosyntropin No 250ug 250 mcg, Univers (CORTROSYN) 04-11 Slow IV ity of injection 15:45: 16:40 Push, [place] 250 mcg 00 :00 ONCE, 1 Medical dose, On Branch [place] 04/11/22 at 1045, Routine enoxaparin Yes 30mg 30 mg, Unive rs (LOVENOX) 9-11 Subcutaneo ity of injection 14:00: us, DAILY, [place] 30 mg 00 First dose Medical on Counts Include [address] [facility] 04/11/22 at 0900, Until Discontinu ed, Routine DOPamine No 5ug/kg/ 5 Unive rs 800 mg/500 04-11 min mcg/kg/min it y of mL (1,600 12:00: 01:40 ?55.5 kg [place] mcg/mL) 00 :01 (10.4063 Medical infusion mL/hr, Branch RTU rounded to 10.41 mL/hr), IV Infusion, CONTINUOUS , Starting on [place] 04/11/22 at 0700 levothyroxi 2021- No 25ug 25 mcg, Un jg ne 04-11 Oral, ity of (SYNTHROID) 11:00: 11:19 QAM-0600, [place] tablet 25 00 :00 1 dose, Medical mcg First dose Branch on [place] 04/11/22 at 0600, Routine atropine 2021- No .5mg 0.5 mg, IV Un jg injection 04-11 Push, ity of 0.5 mg 06:00: 05:02 ONCE, 1 [place] 00 :00 dose, On Medical Counts Include [address] [facility] 04/11/22 at 0100, Routine ondansetron Yes 4mg 4 mg, Slow Univers (ZOFRAN 04-11 IV Push, ity of (PF)) 05:41: Q6HP, [place] injection 4 54 Starting Medi jai mg on Counts Include [address] [facility] 04/11/22 at 0041, Until Discontinu ed, Routine, Nausea and Vomiting (N/V) butalbital- 2021- No 1{tbl} 1 tablet, Univers acetaminoph 04-11 Oral, ity of en-caff 01:18: 16:35 Q4HPN, [place] (ESGIC) 20 :31 Starting Medical 50-325-40 on Sat Branch mg tablet 1 04/10/22 at tablet 2018, Until 04/12/22 at 1135, Routine, headache clonazePAM 2021- No 1mg 1 mg, Unive rs (KLONOPIN) 04-10 Oral, BID, it y of tablet 1 mg 20:45: 05:01 First dose [place] 00 :41 on [facility] Medical 04/10/22 at Branch 1545, Until Discontinu ed, Routine acetaminoph Yes 650mg 650 mg, Un jg en 04-10 Oral, ity of (TYLENOL) 18:51: Q6HPRN, [place] tablet 650 25 Starting Medic al mg on Sat Branch 04/10/22 at 1351, Until Discontinu ed, Routine, Pain (scale 1-3) ketorolac 2021- No 15mg 15 mg, Unive rs (TORADOL) 04-10 Slow IV ity of injection 18:50: 15:41 Push, [place] 15 mg 26 :06 Q6HPRN, Medical Starting Branch on [facility] 04/10/22 at 1350, Until 04/12/22 at 1041, Routine, Pain (scale 4-6) iopamidol 2021- No [id number] 70mL 70 mL, Univers (ISOVUE 04-10 Intravenou ity o f 370-500 mL) 18:15: 18:15 s, ONCE, 1 [place] injection 00 :00 dose, On Medica l 70 mL Sat Branch 04/10/22 at 1315, Routine NaCl 0.9% 2021- No 1000mL at 999 Uni vers (NS) bolus 04-10 mL/hr, ity of infusion 16:00: 16:36 1,000 mL, [place] 1,000 mL 00 :00 IV Medical Infusion, Branch ONCE, 1 dose, On 04/10/22 at 1100, FLY acetaminoph 2021- No 1000mg 1,000 mg, Univers en 04-10 Oral, ity of (TYLENOL) 16:00: 15:50 ONCE, 1 [place] tablet 00 :00 dose, On Medical 1,000 mg Sat Branch 04/10/22 at 1100, FLY ALPRAZOLAM 2021- No Take by Uni vers ORAL 04-10 mouth. ity of 15:31: 00:00 [place] 37 [...] On 04/10/22 at 0930, FLY ondansetron Yes [id number] 4mg Take 1 Univers (ZOFRAN 08-23 tablet by ity of ODT) 4 mg 00:00: mouth [place] disintegrat 00 every 8 Medic al ing tablet (eight) Branch hours as needed for Nausea and Vomiting (N/V). ondansetron 2021- No [id number] 4mg Take 1 Univers (ZOFRAN 08-23 tablet by ity of ODT) 4 mg 00:00: 00:00 mouth [place] disintegrat 00 :00 every 8 Medic al ing tablet (eight) Branch hours as needed for Nausea and Vomiting (N/V). cephALEXin 2021- No [id number] 500mg Take 1 Univers (KEFLEX) 08-23 capsule by ity of 500 mg 00:00: 05:59 mouth 3 [place] capsule 00 :00 (three) Medical times Branch daily for 10 days. metroNIDAZO 2020-2020- No [id number] 500mg Take 1 Univers LE (FLAGYL) 03-26 tablet by it y of 500 mg 00:00: 04:59 mouth 2 [place] tablet 00 :00 (two) Medical times Branch daily for 7 days. metroNIDAZO 2020-0 2020- No [id number] 500mg Take 1 Univers LE 500 mg 03-23 tablet by ity of tablet 00:00: 04:59 mouth 2 [place] 00 :00 (two) Medical times Branch daily for 7 days. metroNIDAZO 2020- No [id number] 500mg Take 1 Univers LE 500 mg 03-23 tablet by ity of tablet 00:00: 04:59 mouth 2 [place] 00 :00 (two) Medical times Branch daily for 7 days. metroNIDAZO 2020- No [id number] 500mg Take 1 Univers LE 500 mg 03-23 tablet by ity of tablet 00:00: 04:59 mouth 2 [place] 00 :00 (two) Medical times Branch daily for 7 days. metroNIDAZO 2020- No [id number] 500mg Take 1 Univers LE 500 mg 03-23 tablet by ity of tablet 00:00: 04:59 mouth 2 [place] 00 :00 (two) Medical times Branch daily for 7 days. ALPRAZOLAM Yes Take by [facility] ers ORAL 8-21 mouth. ity of 23:35: [address] ALPRAZOLAM Yes Take by [facility] ers ORAL 8-21 mouth. ity of 23:35: [address] ALPRAZOLAM Yes Take by [facility] ers ORAL 8-21 mouth. ity of 23:35: [address] ALPRAZOLAM Yes Take by [facility] ers ORAL 8-21 mouth. ity of 23:35: [address] ALPRAZOLAM Yes Take by [facility] ers ORAL 8-21 mouth. ity of 18:35: [address] valACYclovi 2020- No [id number] 1g Take 1 Univers r 1 gram 03-21- tablet by ity o f tablet 00:00: 04:59 mouth 3 [place] 00 :00 (three) Medical times Branch daily for 7 days. valACYclovi 2020- No [id number] 1g Take 1 Univers r 1 gram 03-21- tablet by ity o f tablet 00:00: 04:59 mouth 3 [place] 00 :00 (three) Medical times Branch daily for 7 days. valACYclovi 2020- No [id number] 1g Take 1 Univers r 1 gram 03-29 tablet by ity o f tablet 00:00: 04:59 mouth 3 [place] 00 :00 (three) Medical times Branch daily for 7 days. valACYclovi 2021-0 2021- No [id number] 1g Take 1 Univers r 1 gram 03-21 tablet by ity o f tablet 00:00: 04:59 mouth 3 [place] 00 :00 (three) Medical times Branch daily for 7 days. clonazePAM 2020-0 Yes 2mg Take 2 mg Un jg 2 mg tablet 8-09 by mouth 2 it y of 00:00: (two) [place] 00 times Medical daily. Branch clonazePAM 1-0 Yes 2mg Take 2 mg Un jg 2 mg tablet 8-09 by mouth 2 it y of 00:00: (two) 00 times Medical daily. Branch clonazePAM 2021-0 Yes 2mg Take 2 mg Un jg 2 mg tablet 8-09 by mouth 2 it y of 00:00: (two) [place] 00 times Medical daily. Branch clonazePAM 2020-0 Yes 2mg Take 2 mg Un jg 2 mg tablet 8-09 by mouth 2 it y of 00:00: (two) [place] 00 times Medical daily. Branch clonazePAM 1-0 Yes 2mg Take 2 mg Un jg 2 mg tablet 8-09 by mouth 2 it y of 00:00: (two) [place] 00 times Medical daily. Branch clonazePAM 1-0 Yes 2mg Take 2 mg Un jg 2 mg tablet 8-09 by mouth 2 it y of 00:00: (two) [place] 00 times Medical daily. Branch clonazePAM 1-0 Yes 2mg Take 2 mg Un jg 2 mg tablet 8-09 by mouth 2 it y of 00:00: (two) [place] 00 times Medical daily. Branch clonazePAM 2021-0 Yes 2mg Take 2 mg Un jg 2 mg tablet 8-09 by mouth 2 it y of 00:00: (two) [place] 00 times Medical daily. Branch clonazePAM 2021-0 Yes 2mg Take 2 mg Un jg 2 mg tablet 8-09 by mouth 2 it y of 00:00: (two) [place] 00 times Medical daily. Branch clonazePAM 2021-0 Yes 2mg Take 2 mg Un jg 2 mg tablet 8-09 by mouth 2 it y of 00:00: (two) [place] 00 times Medical daily. Branch clonazePAM 2021-0 Yes 2mg Take 2 mg Un jg 2 mg tablet 03-09 by mouth 2 it y of 00:00: (two) times Medical daily. Branch clonazePAM 2020-0 Yes 2mg Take 2 mg Un jg 2 mg tablet 03-09 by mouth 2 it y of 00:00: (two) times Medical daily. Branch clonazePAM 2020-0 Yes 2mg Take 2 mg Un jg 2 mg tablet 03-09 by mouth 2 it y of 00:00: (two) 00 times Medical daily. Branch clonazePAM 2020-0 Yes 2mg Take 2 mg Un jg 2 mg tablet 03-09 by mouth 2 it y of 00:00: (two) times Medical daily. Branch ALPRAZOLAM 2017-0 Yes Take by Univ ers ORAL 5-15 mouth. ity of 16:08: [place] 13 Medical Branch amoxicillin 2018-0 Yes 875mg Take 1 Uni vers 875 mg 5-15 tablet by ity of tablet 00:00: mouth 2 (two) Medical times Branch daily. traMADOL 50 2018-0 Yes 50mg Take 1 Univ ers mg tablet 5-15 tablet by ity o f 00:00: mouth every 6 Medical (six) Branch hours as needed for Pain (scale 4-6). amoxicillin 2018-0 Yes 875mg Take 1 Uni vers 875 mg 5-15 tablet by ity of tablet 00:00: mouth [place] (two) Medical times Branch daily. traMADOL 50 2018-0 Yes 50mg Take 1 Univ ers mg tablet 5-15 tablet by ity o f 00:00: mouth every 6 Medical (six) Branch hours as needed for Pain (scale 4-6). amoxicillin 2018-0 Yes 875mg Take 1 Uni vers 875 mg 5-15 tablet by ity of tablet 00:00: mouth 2 (two) Medical times Branch daily. traMADOL 50 2018-0 Yes 50mg Take 1 Univ ers mg tablet 5-15 tablet by ity o f 00:00: mouth 00 every 6 Medical (six) Branch hours as needed for Pain (scale 4-6). amoxicillin 2018-0 Yes 875mg Take 1 Uni vers 875 mg 5-15 tablet by ity of tablet 00:00: mouth 2 (two) Medical times Branch daily. traMADOL 50 [...] as needed for Pain (scale 4-6). amoxicillin 2017-0 2021- No 875mg Take 1 Un jg 875 mg 5-15 09-10 tablet by ity of tablet 00:00: 00:00 mouth 2 [place] 00 :00 (two) Medical times Branch daily. traMADOL 50 2017-0 2021- No 50mg Take 1 Uni vers mg tablet 5-15 09-10 tablet by ity of 00:00: 00:00 mouth [place] 00 :00 every 6 Medical (six) Branch hours as needed for Pain (scale 4-6). Vital Signs Vital Name Observation Time Observation Value Comments Source Systolic blood 2022-06-06 117 mm[Hg] [place] of pressure 14:19:00 [facility] [place] [facility] Diastolic blood 2022-06-06 85 mm[Hg] [place] o pressure 14:19:00 [facility] [place] [facility] Heart rate 2022-06-06 89 /min [facility] :: [facility] [place] [facility] Body temperature 2022-06-06 36.28 Estrella [facility] :19: [facility] [place] [facility] Respiratory rate 2022-06-06 16 /min [facility] :: [facility] [place] [facility] Body height 2022-06-06 162.6 cm [facility] :: [facility] [place] [facility] Body weight 2022-06-06 58.968 kg University of 14:19:00 [facility] [place] [facility] BMI 2022-06-06 22.31 kg/m2 University of 14:19:00 [facility] [place] [facility] Systolic blood 2022-04-16 98 mm[Hg] University of pressure 13:23:00 [facility] Branch Diastolic blood 2022-04-16 65 mm[Hg] University o f pressure 13:23:00 [place] [facility] Heart rate 2022-04-16 107 /min [facility] 13:23:00 [facility] Body temperature 2022-04-16 36.44 [facility] 13:19:00 [facility] Respiratory rate 2022-04-16 18 /min [facility] 13:19:00 [facility] Oxygen saturation 2022-04-16 97 /min [facility] in Arterial blood 13:19:00 [facility] by Pulse oximetry [place] Body weight 2022-04-16 58.469 kg bed scale was [facility] 09:36:00 used, pt [facility] to Branch stand on the regular scale BMI 2022-04-16 22.13 kg/m2 University 09:36:00 [facility] Body height 2022-04-14 162.6 cm University of 01:00:00 [facility] Systolic blood 2021-08-23 121 mm[Hg] University of pressure 05:10:00 [facility] Diastolic blood 2021-08-23 90 mm[Hg] [place] o f pressure 05:10:00 [facility] Heart rate 2021-08-23 74 /min University 05:10:00 [facility] Body temperature 2021-08-23 36.56 Estrella [facility] 05:10:00 [facility] Respiratory rate 2021-08-23 19 /min [facility] 05:10:00 [facility] Body height 2021-08-23 162.6 cm [facility] 05:10:00 [facility] Body weight 2021-08-23 56.7 kg [facility] 05:10:00 [facility] BMI 2021-08-23 21.46 kg/m2 [facility] 05:10:00 [facility] Oxygen saturation 2021-08-23 100 /min [facility] in Arterial blood 05:10:00 [facility] by Pulse oximetry [place] Procedures Procedure Date / Time Performing Source Performed Clinician CONSENT/REFUSAL FOR DIAGNOSIS 2022-06-06 Doctor Unassigned, [facility] AND TREATMENT 14:13:56 [facility] MAGNESIUM 2022-04-16 Raimundo Gerardo [facility] xas 09:34:00 Medical Branch BASIC METABOLIC PANEL (NA, K, 2022-04-16 Raimundo Gerardo [facility] CL, CO2, GLUCOSE, BUN, 09:34:00 Medical B ranch CREATININE, CA) CBC WITH DIFF 2022-04-16 Akin [facility] xas 09:34:00 Medical Branch MR CARDIAC MORPHOLOGY W WO 2022-04-15 Scarlet [facility] CONTRAST 15:45:00 Medical Branch MAGNESIUM 2022-04-15 Manav [facility] exas 10:03:00 Medical Branch HEPATIC FUNCTION PANEL 2022-04-15 Manav [facility] ([id number]) (ALB,T.PRO,BILI 10:03:00 Medical Branch T,BU/BC,ALT,AST,ALK PHOS) BASIC METABOLIC PANEL (NA, K, 2022-04-15 Deven Novak [facility] CL, CO2, GLUCOSE, BUN, 10:03:00 Medical B ran CREATININE, CA) CBC WITH DIFF 2022-04-15 Scarlet [facility] 10:03:00 Medical Branch PROTHROMBIN TIME / INR 2022-04-15 Manav [facility] 10:03:00 [facility] HEPATITIS B SURFACE ANTIBODY 2022-04-15 Deven Novak [facility] 10:03:00 [facility] HCV ANTIBODY 2022-04-15 Scarlet [facility] ex 10:03:00 Medical Branch HBC ANTIBODY (IGM & IGG) 2022-04-15 Scarlet [facility] 10:03:00 Medical Branch GC & CHLAMYDIA AMPLIFIED 2022-04-14 [facility] 17:08:00 [facility] ANTICARDIOLIPIN ANTIBODIES 2022-04-14 [facility] 15:17:00 [facility] THYROID PEROXIDASE (TPO) AB 2022-04-14 Manav [facility] 15:17:00 Medical Branch CYCLIC CITRULLINATED PEPTIDE 2022-04-14 Deven Novak [facility] 15:17:00 Medical Branch ANTI-B2 GLYCOPROTEIN I AB 2022-04-14 [facility] 15:17:00 Medical Branch BASIC METABOLIC PANEL (NA, K, 2022-04-14 Lin Ernesto [facility] CL, CO2, GLUCOSE, BUN, 00:45:00 Medical B ranch CREATININE, CA) CBC WITH DIFF 2022-04-14 Lin [facility] 00:45:00 Medical Branch PROTHROMBIN TIME / INR 2022-04-14 Lin [facility] 00:45:00 Medical Branch ACTIVATED PARTIAL THRMPLAS 2022-04-14 Lin [facility] JOE 00:45:00 Medical Branch HEPATITIS B SURFACE ANTIGEN 2022-04-14 Deven [facility] 00:45:00 Medical Branch LACTIC ACID WHOLE BLOOD 2022-04-14 Lin [facility] 00:45:00 Medical Branch LYME, LATE DISEASE (ABS, 2022-04-14 David Ojeda [facility] KISHAN W/REFLEX TO WB) 00:45:00 Medical Br anch MAGNESIUM 2022-04-13 Kee [facility] xa 08:24:00 Medical Branch BASIC METABOLIC PANEL (NA, K, 2022-04-13 Abdulaziz Epstein [facility] CL, CO2, GLUCOSE, BUN, 08:24:00 Medical B ran CREATININE, CA) HIV 1/2 AG-AB WITH REFLEX 2022-04-13 David Ojeda [facility] 08:24:00 Medical Branch XR CHEST 1 VW 2022-04-12 [facility] 18:12[facility] Medical Branch URINALYSIS 2022-04-12 [facility] 18:08:00 [facility] URINE CULTURE 2022-04-12 [facility] 18:08:00 [facility] PROTEIN CREAT RATIO URINE 2022-04-12 [facility] R[facility] 18:08:00 [facility] CREATINE KINASE 2022-04-12 Lucian [facility] xas 17:56:00 [facility] BASIC METABOLIC PANEL (NA, K, 2022-04-12 Abdulaziz Epstein [facility] CL, CO2, GLUCOSE, BUN, 17:56:00 Medical ranch CREATININE, CA) CT HEAD WO CONTRAST 2022-04-12 Kee [facility] 11:06:02 [facility] FREE T4 2022-04-12 Lucian [facility] [place] 06:11:00 [facility] CBC WITH DIFF 2022-04-12 Lucian [facility] [place] 06:11:00 [facility] HB ECG ROUTINE & RHYTHM STRIP 2022-04-12 Suly Sweet [facility] 05:23:39 [facility] RHEUMATOID FACTOR 2022-04-11 Lucian [facility] 22:41:00 [facility] C4 COMPLEMENT 2022-04-11 Kirill [facility] [place] 22:41:00 [facility] SEDIMENTATION RATE 2022-04-11 [facility]ian [facility] 22:41:00 [facility] PROTHROMBIN TIME / INR 2022-04-11 Lucian [facility] 22:41:00 [facility] ACTIVATED PARTIAL THRMPLAS 2022-04-11 Abdulaziz Epstein [facility] JOE 22:41:00 [facility] ANTI-NUCLEAR ANTIBODY SCREEN 2022-04-11 Abdulaziz Epstein [facility] 22:41:00 [facility] ANTI-NUCLEAR ANTIBODY TITER 2022-04-11 Lucian Abdulaziz [facility] 22:41:00 [facility] ANTI-SSB(LA) 2022-04-11 David Ojeda [facility] xa 22:41:00 [facility] ANTI-DOUBLE STRANDED DNA 2022-04-11 Lucian [facility] 22:41:00 [facility] GALV ONLY - SYPHILIS IGG/IGM 2022-04-11 Deven Novak [facility] 22:41:00 [facility] ANTI-NUCLEAR 2022-04-11 Lucian [facility] xas ANTIBODY-PATHOLOGIST 22:41:00 [facility] INTERPRETATION CORTISOL STIMULATION 60 MIN 2022-04-11 [facility] 17:46:00 Medical Branch CORTISOL STIMULATION 30 MIN 2022-04-11 [facility] 17:16:00 [facility] ADRENOCORTICOTROPIC HORMONE 2022-04-11 [facility] 16:30:00 Medical Branch C-REACTIVE PROTEIN 2022-04-11 [facility] 16:30:00 Medical Branch CORTISOL STIMULATION 0 MIN 2022-04-11 [facility] 16:30:00 Medical Branch XR CHEST 1 VW 2022-04-11 [facility] 14:46:47 Medical Branch TRANSTHORACIC ECHO (TTE) 2022-04-11 [facility] COMPLETE 13:59:00 Medical Branch HB ECG ROUTINE & RHYTHM STRIP 2022-04-11 [facility] 12:47:45 Medical Branch PHOSPHORUS 2022-04-11 [facility] xas 09:48:00 Medical Branch MAGNESIUM 2022-04-11 [facility] xas 09:48:00 Medical Branch CORTISOL AM 2022-04-11 [facility] 09:48:00 Medical Branch TROPONIN I 2022-04-11 [facility] xas 09:48:00 [facility] HEPATIC FUNCTION PANEL 2022-04-11 [facility] ([id number]) (ALB,T.PRO,BILI 09:48:00 Medical Branch T,BU/BC,ALT,AST,ALK PHOS) BASIC METABOLIC PANEL (NA, K, 2022-04-11 [facility] CL, CO2, GLUCOSE, BUN, 09:48:00 Medical ranch CREATININE, CA) CBC WITH DIFF 2022-04-11 [facility] xas 09:48:00 Medical Branch LACTIC ACID WHOLE BLOOD 2022-04-10 [facility] 19:46:00 Medical Branch HB ECG ROUTINE & RHYTHM STRIP 2022-04-10 [facility] 19:30:05 [facility] MRSA / MSSA SCREEN BY PCR, 2022-04-10 Abdulaziz Epstein [facility] NARES 18:47:[address] CHEST PULMONARY ANGIOGRAM 2022-04-10 Tatum Clark [facility] 17:17:12 Medical Branch COVID-19 (ID NOW RAPID 2022-04-10 Tatum Clark [facility] TESTING) 16:37:00 Medical Branch LAB ONLY COVID INTERPRETATION 2022-04-10 Tatum Clark [facility] 16:37:00 [facility] HB ECG ROUTINE & RHYTHM STRIP 2022-04-10 Tatum Clark [facility] 13:55:45 Medical Branch PHOSPHORUS 2022-04-10 [facility] 13:36[facility]00 Medical Branch CREATINE KINASE 2022-04-10 [facility] 13:36:00 Medical Branch MAGNESIUM 2022-04-10 [facility] 13:36:00 Medical Branch TROPONIN I 2022-04-10 [facility] 13:36:00 [facility] FREE T4 2022-04-10 Kirill Abdulaziz [facility] xas 13:36:00 [facility] THYROID STIMULATING HORMONE 2022-04-10 [facility] 13:36:00 [facility] COMP. METABOLIC PANEL ([id number]) 2022-04-10 Tatum Clark [facility] 13:36:00 Medical Branch ETHANOL 2022-04-10 [facility] 13:36:00 [facility] CBC WITH DIFF 2022-04-10 [facility] 13:36:00 [facility] URINALYSIS 2022-04-10 [facility] 13:36:00 [facility] POCT TEST 2022-04-10 [facility] 13:36:00 [facility] N-TERMINAL PRO-BNP 2022-04-10 Eduardo [facility] 13:36:00 [facility] URINE DRUG (IMMUNOASSAY) - 2022-04-10 Tatum Clark [facility] COMPREHENSIVE DRUG SCREEN W/O 13:36:00 Ca dical Branch REFLEX CONSENT/REFUSAL FOR DIAGNOSIS 2022-04-10 Doctor Unassigned, [facility] AND TREATMENT 13:23:47 [facility] HOSPITAL ADMISSION 2022-04-10 Doctor Unassjose carlos, [facility] 05:01:00 [facility] ASSIGNMENT OF BENEFITS 2021-08-23 Doctor Unassjose carlos, [facility] 06:40:03 [facility] URINALYSIS 2021-08-23 Marc Jhaveri [facility] xas 06:00:00 [facility] POCT TEST 2021-08-23 Marc Jhaveri [facility] [place] 06:00:00 Medical [place] NOTICE OF PRIVACY PRACTICES 2021-08-23 Doctor Unassjose carlos [facility] 05:07:28 [facility] CONSENT/REFUSAL FOR DIAGNOSIS 2021-08-23 Doctor Unassigned, [facility] AND TREATMENT 05:07:13 [facility] [place] Encounters Start End Encounter Admission Attending Care Care Encounter Source Date/Time Date/Time Type Type Clinicians Facility Department ID 2022-06-06 2022-06-06 [facility] [id number] Univers 08:22:00 10:05:00 TENNILLE laguerre [facility] 2022-06-06 2022-06-06 Emergency [facility] [id number] Univers 08:22:00 10:05:00 Tennille S LASHAWN 350.1.13.10 i ty of [place] 4.2.7.2.686 [facility] [id number] [facility] 084 Branch 2022-06-01 2022-06-01 Patient Aelena Hankins ANDREA [id number] Univers 00:00:00 00:00:00 Outreach Fidel ZAMORA 350.1.13.10 i ty of [place] 4.2.7.2.686 [facility] [id number] [facility] 403 Branch 2022-05-03 2022-05-03 Patient ANDREA Bautista [id number] Univers 00:00:00 00:00:00 Outreach Rick W ZAMORA 350.1.13.10 [id number] [address] 2022-04-28 2022-04-28 Patient Aleena Hankins [id number] Univers 00:00:00 00:00:00 Outreach E ZAMORA 350.1.13.10 i [place] [id number] [address] 2022-04-27 2022-04-27 Patient Aleena Hankins [id number] Univers 00:00:00 00:00:00 Outreach E ZAMORA 350.1.13.10 i [place] [id number] [address] 2022-04-23 2022-04-23 Transition ANDREA Suárez [id number] Univers 00:00:00 00:00:00 of Care Dotty ZAMORA 350.1.13.10 [place] [id number] [address] 2022-04-19 2022-04-19 Transition ANDREA Suárez [id number] Univers 00:00:00 00:00:00 of Care Dotty ZAMORA 350.1.13.10 [place] [id number] [address] 2022-04-19 2022-04-19 Transition ANDREA Suárez 1.2.840.114 [id number] Univers 00:00:00 00:00:00 of Care Dotty ZAMORA 350.1.13.10 [place] [id number] [address] 2022-04-16 2022-04-16 Outpatient Beata CESPEDES [facility] [id number] Univers 13:52:31 23:59:00 CURLY itlefty of [facility] 2022-04-10 2022-04-16 Hospital Tatum Clark 1.2.840. 114 [id number] Univers 08:29:00 11:43:00 Encounter Abdulaziz Epstein 350.1.13.10 ity of Nancy Hicks [facility] 4.2 .7.2.686 Patsy Curly Cespedes [id number] Medical 0 Branch 2022-04-10 2022-04-16 Inpatient U NAVNEET [facility] [id number] Univers 08:29:00 11:43:00 AIHAM ity of [facility] 2021-08-22 2021-08-23 Emergency X TAYLOR, K [facility] ERT [id number] Univers 23:25:00 01:50:00 ity of [facility] 2021-08-22 2021-08-23 Emergency Taylor, K [facility] 1.2.840.114 [id number] Univers 23:25:00 01:50:00 Mariela HARDIN 350.1.13.10 i ty of [place] 4.2.7.2.686 [facility] [id number] [address] 2021-03-25 2021-03-25 Telephone [facility] 1.2.840.114 [id number] Univers 00:00:00 00:00:00 [facility] 350.1.13.10 i ty of [place] 4.2.7.2.686 Devon as Randall?Blea [id number] [address] Medical Office Building 2021-03-23 2021-03-23 Telephone Dwayne [facility] 1.2.840.114 [id number] Univers 00:00:00 00:00:00 [facility] 350.1.13.10 it y of [place] 4.2.7.2.686 [facility] [id number] [address] ([facility]) 2021-03-23 2021-03-23 Telephone [facility] [id number] Univers 00:00:00 00:00:00 Patient Health 350.1.13.10 it y of Does Not [place]?Blea [id number] Ca rylee sheldon [address] [place] [address] Medical Office Building 2021-03-21 2021-03-21 Outpatient R STEPHANIE, [facility] [id number] Univers 18:20:00 18:20:00 ATTENDING ity of [facility] 2021-03-20 2021-03-20 Outpatient R BRIANNA, [facility] [id number] Univers 09:00:00 09:00:00 WONDIFUL ity o f [facility] 2020-03-18 2020-03-18 Outpatient attema_lee [facility] [id number] 11:45:00 11:45:00 0818 Medical Group 2019-11-27 2019-11-27 Telephone Pcp, [facility] [id number] 00:00:00 00:00:00 Patient STUMPER FELLER 350.1.13.10 Does Not REGIONAL 4.2.7.2.686 Have A MATERNAL [id number] & CHILD [address] [place] [address] 2019-11-27 2019-11-27 Telephone Pcp, [facility] [id number] Univers 00:00:00 00:00:00 Patient STUMPER FELLER 350.1.13.10 it y of Does Not [place] A MATERNAL [id number] [facility] ical & CHILD [address] [place] [address] Results Test Description Test Time Test Comments Results Result Comments Source LYME, LATE DISEASE (ABS, KISHAN W/REFLEX TO WB) 2022-04-16 04 :33:35 Test Item Value Reference Range Interpretation Comme nts LYME EIA (test code = 41722-3) See_Comment When the Borrelia burgdorferi Abs, Total [...] to B. burgdorferi ? detected.Perfor med By: [employer] [address] [id number] aboratory Director: Faustino viveros MD, PhD [Automated message] The sy stem which generated this result tra nsmitted reference range: 0.00 - 1 .20 RICHI. The reference range was not u sed to interpret this result as jeffrey l/abnormal. [facility] PEROXIDASE (TPO) [id number] 16:21:03 Test Item Value Reference Interpretation Comments Range TPO Ab IgG (test See_Comment H [Automated code = 7403727154) message] The system which generated this result [...] Graves'disease. Lab Interpretation Abnormal (test code = 49476-7) [facility] HospitalCYCLIC CITRULLINATED [id number] 16:04:26 Test Item Value Reference Range Interpretation Comments CCP IgG (test code = 2.6 U 0-20 3156854515) SANFORD (test code = SANFORD) INTERPRETATION: UNITS: Negative <20Weak Positive 20-39Moderate Positive 40-59Strong Positive >=60 A positive result indicates the presence of CCP IgG antibodies and suggests the possibility of RA antibodies and suggests the possibility of SLE. A negative result indicates no CCP IgG antibodies or levels below the cut-off ofthe assay. Lab Interpretation (test Normal code = 37761-3) [facility] HospitalANTICARDIOLIPIN [id number] 15:58:16 Test Item Value Reference Interpretation Comments Range Anticardiolipin See_Comment [Automated Antibody IgG (test message] The code = 2968318207) system [facility] generated this result transmitted reference range: 0.0 - 10.0 GPL. The reference range was not used to interpret this result as normal/abnormal . Anticardiolipin See_Comment [Automated Antibody IgM (test message] The code = 2938450601) system [facility] generated this result transmitted reference range: 0.0 - 10.0 MPL. The reference range was not used to interpret this result as normal/abnormal . Anticardiolipin See_Comment [Automated Antibody IgA (test message] The code = 7042301163) system [facility] generated this result transmitted reference range: 0.0 [...] 2210-4 Lab Interpretation Normal (test code = 11507-5) [facility] HospitalANTI-B2 GLYCOPROTEIN I [id number] 15:53:57 Test Item Value Reference Interpretation Comments Range Anti-B2 See_Comment [Automated Glycoprotein 1 IgG message] The (test code = system which 9559963509) generated this result transmitted reference range : 0.0 - 20.0 SGU. The reference range was not used to interpret this result as normal/abnormal . Anti-B2 See_Comment [Automated Glycoprotein 1 IgM message] The (test code = system which 8291073495) generated this result transmitted reference range : 0.0 - 20.0 SMU. The reference range was not used to interpret this result as normal/abnormal . Anti-B2 See_Comment [Automated Glycoprotein 1 IgA message] The (test code = system which 8940887631) generated this result transmitted reference range : [...] losses and/or thrombocytopenia. TEST PERFORMED AT:[facility]. [id number] [place] [address] [place] [address] Lab Interpretation Normal (test code = 32544-8) [facility] HospitalHEPATITIS B SURFACE [id number] 15:44:25 Test Item Value Reference Range Interpretation Comments HBsAB (test code = Indeterminate 7713599777) HBsAb mIU/mL Semi-Quantitative (test code = 2826580576) SANFORD (test code = Unable to determine if SANFORD) antibody to Hepatitis B Surface Antigen is present at levels consistent with immunity. ?Patient's immune status should be assessed with other clinical information and/or retesting in 4-6 weeks as clinically indicated. ?If any questions, please contact Clinical Chemistry Director python java developer at .Interpretati on: ?Hepatitis B Surface Antibody ? Negative - Patient is considered to be not immune to infection with HBV. ? ? Positive - Anti-HBs detected at greater than or equal to 12 mIU/mL. ?Patient is considered to be immune to infection with HBV. ? [facility] ANTIBODY (IGM & IGG)2022-04-15 11:48:38 Test Item Value Reference Range Interpretation Comments HBC (test code = 3424618068) Negative HBC Semi-Quantitative (test code = 7150310463) [facility] HospitalHCV [id number] 11:48:37 Test Item Value Reference Range Interpretation Comments HCV Ab (test code = 59885-2) Negative HCV Semi-Quantitative (test code = 99829-3) [facility] HospitalHEPATIC FUNCTION PANEL (63848) (ALB,T.PRO,BILI T,BU/BC,ALT,AST,ALK PHOS)2022-04-15 11:06:34 Test Item Value Reference Range Interpretation Comments TOTAL BILI (test code = 5666184767) 0.2 mg/dL 0.1-1.1 BILI UNCON (test code = 1639887766) 0.1 mg/dL 0.1-1.1 BILI CONJ (test code = 2321252346) 0.0 mg/dL 0-0.3 T PROTEIN (test code = 0219210785) 5.0 g/dL 6.3-8.2 L ALBUMIN (test code = 3835808054) 2.8 g/dL 3.5-5 L ALK PHOS (test code = 7473600783) 54 U/L 34-122 ALTv (test code = 1742-6) 12 U/L 5-35 AST(SGOT) (test code = 8611693349) 18 U/L 13-40 Lab Interpretation (test code = Abnormal 70670-2) [facility] HospitalMAG[facility]UM2022 11:06:34 Test Item Value Reference Range Interpretation Comments MAGNESIUM (test code = 7181000146) 2.1 mg/dL 1.7-2.4 Lab Interpretation (test code = Normal 93222-3) [facility] HospitalBASIC METABOLIC PANEL (NA, K, CL, CO2, GLUCOSE, BUN, CREATININE, CA)2022-04-15 11:06:34 Test Item Value Reference Range Interpretation Comments NA (test code = 139 mmol/L 135-145 8740102496) K (test code = 4.2 mmol/L 3.5-5 5587277928) CL (test code = 112 mmol/L 98-108 H 8332119512) CO2 TOTAL (test code = 26 mmol/L 23-31 7931046692) AGAP (test code = 2-16 L 8709523190) BUN (test code = 16 mg/dL 7-23 6508931406) GLUCOSE (test code = 84 mg/dL 70-110 6342887786) CREATININE (test code = 0.75 mg/dL 0.5-1.04 9048032448) CALCIUM (test code = 7.9 mg/dL 8.6-10.6 L 7904470566) eGFR (test code = mL/min/1.73m2 6876763622) SANFORD (test code = SANFORD) Association of [...] tests). Lab Interpretation Abnormal (test code = 38176-3) General acute hospital WITH [id number] 10:25:33 Test Item Value Reference Range Interpretation Comments WBC (test code = See_Comment [Automated 1690-2) message] The sy stem which generated this result transmitted reference range : 4.30 - 11.10 10*3/?L. The reference range was not used to interpret this result as normal/abnormal . RBC (test code = See_Comment L [Automated 789-8) message] The sy stem which generated this [...] RDW-SD (test code = 41.0 fL 39-49.9 29550-1) RDW-CV (test code = 12.6 % 12-15.5 788-0) PLT (test code = See_Comment L [Automated 777-3) message] The sy stem which generated this result transmitted reference range : 166 - 358 10*3/ ?L. The reference r earnest was not used to interpret this result as normal/abnormal . MPV (test code = 10.6 fL 9.5-12.9 29355-7) NRBC/100 WBC (test See_Comment [Automat ed code = 7636465788) message] The system which generated this result transmitted reference range : 0.0 - 10.0 /100 WBCs. The refer ence range was not u sed to interpret th is result as normal/abnormal . NRBC x10^3 (test code See_Comment [Auto mated = 2066267815) message] The s ystem which generated this result transmitted reference range : 10*3/?L. The reference range was not used to interpret this result as normal/abnormal . GRAN MAT (NEUT) % 58.3 % (test code = 770-8) IMM GRAN % (test code 0.30 % = 8712401231) LYMPH % (test code = 33.2 % 736-9) MONO % (test code = 5.5 % 5905-5) EOS % (test code = 2.5 % 713-8) BASO % (test code = 0.2 % 706-2) GRAN MAT x10^3(ANC) 3.49 10*3/uL 1.88-7.09 (test code = 1524264241) IMM GRAN x10^3 (test 0-0.06 code = 3193817803) LYMPH x10^3 (test code 1.99 10*3/uL 1.32-3.29 = 731-0) MONO x10^3 (test code 0.33 10*3/uL 0.33-0.92 = 742-7) EOS x10^3 (test code = 0.15 10*3/uL 0.03-0.39 711-2) BASO x10^3 (test code 0.01-0.07 = 704-7) Lab Interpretation Abnormal (test code = 31822-1) [facility] Time / [id number] 10:25:12 Test Item Value Reference Range Interpretation Comments PROTIME PATIENT (test See_Comment [Auto mated message] code = 5964-2) The system [email or web address] generated this result transmitted ref erence range: 10.1 - 1 2.6 Seconds. The re ference range was not u sed to interpret this result as normal/abnor mal. INR (test code = 6301-6) Nor mal INR <1.1; Warfarin Therap eutic range 2.0 to 3. 0 or 2.5 to 3.5, dep ending upon the indica tions. Lab Interpretation (test Normal code = 57377-1) [facility] HospitalHEPATITIS B SURFACE [id number] 21:24:29 Test Item Value Reference Range Interpretation Comments HBsAg Semi-Quantitative (test code = Negative Negative 5195-3) [facility]BAS[facility] METABOLIC PANEL (NA, K, CL, CO2, GLUCOSE, BUN, CREATININE, CA)2022-04-14 01:26:24 Test Item Value Reference Range Interpretation Comments NA (test code = 141 mmol/L 135-145 9716623694) K (test code = 3.7 mmol/L 3.5-5 6702001763) CL (test code = 110 mmol/L 98-108 H 3240781269) CO2 TOTAL (test code = 27 mmol/L 23-31 5906917453) AGAP (test code = 2-16 4232412995) BUN (test code = 16 mg/dL 7-23 1203992369) GLUCOSE (test code = 101 mg/dL 70-110 0206351797) CREATININE (test code = 0.83 mg/dL 0.5-1.04 4624250857) CALCIUM (test code = 8.3 mg/dL 8.6-10.6 L 2115658230) eGFR (test code = mL/min/1.73m2 5132146272) SANFORD (test code = SANFORD) Association of [...] tests). Lab Interpretation Abnormal (test code = 66656-9) [facility] Whole [id number] 01:17:52 Test Item Value Reference Range Interpretation Comments LACTIC ACID (test code = 1.01 mmol/L 0.5-2.2 3633928235) Lab Interpretation (test code = Normal 54843-8) [facility] HospitalaPTT2022-09-14 01:09:01 Test Item Value Reference Range Interpretation Comments APTT Patient (test code = See_Comment [ Automated message] 3173-2) The system [employer] generated this result transmitted ref erence range: 26 - 36 Seconds. The re ference range was not u sed to interpret this result as normal/abnor mal. Lab Interpretation (test Normal code = 35072-0) [facility] HospitalProth[facility]bin Time / [id number] 01:09:01 Test Item Value Reference Range Interpretation Comments PROTIME PATIENT (test See_Comment [Auto mated message] code = 5964-2) The system [email or web address] generated this result transmitted ref erence range: 10.1 - 1 2.6 Seconds. The re ference range was not u sed to interpret this result as normal/abnor mal. INR (test code = 6301-6) Nor mal INR <1.1; Warfarin Therap eutic range 2.0 to 3. 0 or 2.5 to 3.5, dep ending upon the indica tions. Lab Interpretation (test Normal code = 36767-2) [facility] HospitalCB WITH [id number] 01:03:39 Test Item Value Reference Range Interpretation Comments WBC (test code = See_Comment [Automated message] 6690-2) The system [employer] generated this result transmitted ref erence range: 4.30 - 1 1.10 10*3/?L. The re ference range was not u sed to interpret this result as normal/abnor mal. RBC (test code = See_Comment [Automated message] 789-8) The system [employer] generated this result transmitted ref erence range: [...] RDW-SD (test code 40.8 fL 39-49.9 = 22842-4) RDW-CV (test code 12.3 % 12-15.5 = 788-0) PLT (test code = See_Comment [Automated message] 777-3) The system whic h generated this result transmitted ref erence range: 166 - 35 8 10*3/?L. The re ference range was not u sed to interpret this result as normal/abnor mal. MPV (test code = 10.8 fL 9.5-12.9 11940-8) NRBC/100 WBC (test See_Comment [Automat ed message] code = 3803266715) The syste m which generated this result transmitted ref erence range: 0.0 - 10 .0 /100 WBCs. The refer ence range was not u sed to interpret this result as normal/abnor mal. NRBC x10^3 (test See_Comment [Automated message] code = 0058473433) The syste m which generated this result transmitted ref erence range: 10*3/?L. The reference range was not used to interpr et this result as normal/abnormal . GRAN MAT (NEUT) % 56.8 % (test code = 770-8) IMM GRAN % (test 0.10 % code = 2187675517) LYMPH % (test code 37.1 % = 736-9) MONO % (test code 4.3 % = 5905-5) EOS % (test code = 1.2 % 713-8) BASO % (test code 0.5 % = 706-2) GRAN MAT 4.67 10*3/uL 1.88-7.09 x10^3(ANC) (test code = 8244975183) IMM GRAN x10^3 0-0.06 (test code = 4113852574) LYMPH x10^3 (test 3.05 10*3/uL 1.32-3.29 code = 731-0) MONO x10^3 (test 0.35 10*3/uL 0.33-0.92 code = 742-7) EOS x10^3 (test 0.10 10*3/uL 0.03-0.39 code = 711-2) BASO x10^3 (test 0.04 10*3/uL 0.01-0.07 code = 704-7) [facility] HospitalTransthoracic echo (TTE)2022-04-11 16:43:30 Test Item Value Reference Range Interpretation Comments Height (test code = in 4889790403) Weight (test code = lbs 7784745431) Systolic BP (test code = mmHg 7151627776) Diastolic BP (test code mmHg = 0403247985) Heart Rate (test code = bpm 6264893065) BSA (test code = 1.60 m2 7406336043) Ao root annulus (test 2.8 cm code = 6366997679) Ao root diam (test code 2.80 cm = 2492998159) Aortic root (test code = 2.8 cm 2417820530) LVOT diameter (test code 1.80 cm = 2728313258) LVOT area (test code = 2.60 cm2 0925033405) LVIDD (test code = 4.50 cm 8884241322) Left Ventricular End 91.2 mL Diastolic Volume by Teichholz Method (test code = 4718378) IVS (test code = 0.71 cm 0375796707) Interventricular Septum 0.71 cm Diastolic Thickness by 2D (test code = 7688859) LVPWD (test code = 0.71 cm 9196100367) PW (test code = 0.71 cm 0.6-1.6 9165598095) EF(Teich) (test code = 61.00 % 1930674163) LVIDS (test code = 3.00 cm 7161325193) Left Ventricular End 35.6 mL Systolic Volume by Teichholz Method (test code = 3036631) FS (test code = 33 % 7162740328) EF - 2D (test code = 61.00 % 63009454) LA size (test code = 2.9 cm 4856615004) Pulmonic Regurgitant End 161.8 cm/s Max Velocity (test code = 8378926340) LAV(MOD-sp4) (test code 29.10 mL = 5058379634) MV stenosis pressure 1/2 65.3 ms time (test code = 3966570868) E wave decelartion time 0.23 s (test code = 3870596505) MV Peak E Rafael (test code 121.5 cm/s = 4041554318) MV Peak A Rafael (test code 43.8 cm/s = 3994135266) E/A ratio (test code = ratio 2512817891) MR max PG (test code = 65.00 mm[Hg] 1077234634) MR max rafael (test code = 401.70 cm/s 8685325960) Mr max rafael (test code = 401.7 m/s 6047871035) MV Prop V (test code = 44.60 cm/s 8649017516) MV E/e' septal (test 19.3 cm/s code = 0518286352) Tapse (test code = 2.13 cm 7431413073) LVOT stroke volume (test 72.90 cm3 code = 9341264992) LVOT peak rafael (test code 144.5 cm/s = 9088566048) LVOT mn grad (test code mmHg = 3511448282) AV LVOT peak gradient mmHg (test code = 4199996348) LVOT peak VTI (test code 28.5 cm = 9683275126) LV V1 mean (test code = 104.40 cm/s 0493131133) Aortic valve mean 112.8 cm/s velocity (test code = 6129312077) Ao peak rafael (test code = 161.3 cm/s 6090489504) Ao VTI (test code = 34.5 cm 9476000555) AV area by cont VTI 2.1 cm2 (test code = 4583277415) AV area peak rafael (test 2.3 cm2 code = 9784964635) Ao max PG (test code = 10.40 mm[Hg] 8723504207) AV peak gradient (test mmHg code = 3397236890) AV valve area (test code 2.11 cm2 = 5414980066) AV mean gradient (test mmHg code = 6092859431) Radiology Study observation (narrative) (test code = 21581-9) SANFORD (test code = SANFORD) ?Left?Ventricle: Left [...] 2D, color flow Doppler and spectral Doppler. [facility] [id number] 13:36:00 Test Item Value Reference Range Interpretation Comments POCT PREG (test code = 1605) Negative On board controls acceptable with Present C Line (test code = 3574) POCT PREG LOT # (test code = 3575) [id number] POCT PREG TEST DATE (test 06/30/2023 code = 3576) Lab Interpretation (test code = Normal 72047-9) [facility] [id number] 06:00:00 Test Item Value Reference Range Interpretation Comments POCT PREG (test code = 1605) negative On board controls acceptable with positive C Line (test code = 3574) POCT PREG LOT # (test code = 3575) [id number] POCT PREG TEST DATE (test 07/31/2022 code = 3576) Lab Interpretation (test code = Normal 40695-2) [facility]
[2022-06-07] MEDS ORDERED: HYDROCODONE/APAP 5/325 MG TAB ONE (10:28)
--- NOTE | 2022-06-07 11:08 | EDPHYS ---
Physician Documentation [facility] Name: Marcelina Dodson Age: 31 yrs Sex: Female : 1990 Arrival Date: 06/07/2022 Time: 09:53 Bed 10 Private MD: ED Physician Joseph Doshi HPI: 06/07 10:05 This 31 yrs old Female presents to ER via Ambulatory with complaints of bodyaches, Arm jh7 Pain - swelling/blood clot?. 10:05 Onset: The symptoms/episode began/occurred 6 week(s) ago. Associated signs and jh7 symptoms: Pertinent positives: body aches. Patient states that she had a PICC line 6 weeks ago and is concerned she has a blood clot in her right forearm. Also reports body aches starting today. No other symptoms at this time.. Historical: - Allergies: 10:04 Ibuprofen; mb8 10:04 Tramadol HCl; mb8 10:04 PENICILLINS; mb8 - PMHx: 10:04 UTI, Kidney infections/stones; mb8 - Social history:: Smoking status: Patient reports the use of cigarette tobacco products. ROS: 10:05 Constitutional: Negative for fever, chills, and weight loss, Eyes: Negative for injury, jh7 pain, redness, and discharge, ENT: Negative for injury, pain, and discharge, Cardiovascular: Negative for chest pain, palpitations, and edema, Respiratory: Negative for shortness of breath, cough, wheezing, and pleuritic chest pain, Abdomen/GI: Negative for abdominal pain, nausea, vomiting, diarrhea, and constipation, Back: Negative for injury and pain, Skin: Negative for injury, rash, and discoloration, Neuro: Negative for headache, weakness, numbness, tingling, and seizure. 10:05 MS/extremity: Positive for pain, tenderness, Negative for erythema, swelling. 10:05 All other systems are negative. Exam: 10:05 Constitutional: This is a well developed, well nourished patient who is awake, alert, jh7 and in no acute distress. Head/Face: Normocephalic, atraumatic. Eyes: Pupils equal round and reactive to light, extra-ocular motions intact. Lids and lashes normal. Conjunctiva and sclera are non-icteric and not injected. Cornea within normal limits. Periorbital areas with no swelling, redness, or edema. Cardiovascular: Regular rate and rhythm with a normal S1 and S2. No gallops, murmurs, or rubs. Normal PMI, no JVD. No pulse deficits. Respiratory: Lungs have equal breath sounds bilaterally, clear to auscultation and percussion. No rales, rhonchi or wheezes noted. No increased work of breathing, no retractions or nasal flaring. Back: No spinal tenderness. No costovertebral tenderness. Full range of motion. Skin: Warm, dry with normal turgor. Normal color with no rashes, no lesions, and no evidence of cellulitis. Neuro: Awake and alert, GCS 15, oriented to person, place, time, and situation. Motor strength 5/5 in all extremities. Sensory grossly intact. Normal gait. 10:05 Musculoskeletal/extremity: ROM: intact in all extremities, Circulation is intact in all extremities. the right arm Patient reports her entire forearm is tender to palpation. No signs of trauma noted.. Vital Signs: 10:01 BP 114 / 85; Pulse 100; Resp 16; Temp 97.7; Pulse Ox 99% ; Weight 62.6 kg; Height 5 ft. mb8 4 in. (162.56 cm); Pain 10/10; 10:01 Body Mass Index 23.69 (62.60 kg, 162.56 cm) [facility] MDM: 10:08 Patient medically screened. [facility] 11:15 Differential diagnosis: DVT, SVT, influenza. Data reviewed: vital signs, nurses notes, [facility] radiologic studies, ultrasound. Data interpreted: Pulse oximetry: is 99 %. Interpretation: normal. Counseling: I had a detailed discussion with the patient and/or guardian regarding: the historical points, exam findings, and any diagnostic results supporting the discharge/admit diagnosis, to return to the emergency department if symptoms worsen or persist or if there are any questions or concerns that arise at home. ED course: Shortly after the patient received her Ida she demanded to be discharged or stated that she would be leaving AMA. Discharge papers provided. Informed her that we would call her with any positive results.. 06/07 10:16 Order name: Flu [facility] 06/07 10:21 Order name: UPPER EXTREMITY VENOUS UNILATE; Complete Time: 11:43 EDMS Administered Medications: 10:43 Drug: HYDROcodone-acetaminophen 5 mg-325 mg 1 tabs Route: PO; mb8 11:13 Follow up: Response: No adverse reaction; No change in condition 8 Disposition: 17:40 Co-signature as Attending Physician, Joseph Doshi MD. rn Disposition Summary: 06/07/22 11:08 Discharge Ordered Location: Home [facility] Problem: new [facility] Symptoms: are unchanged [facility] Condition: Stable [facility] Diagnosis - Pain in right arm [facility] Followup: [facility] - With: Private Physician - When: 2 - 3 days - Reason: Recheck today's complaints Discharge Instructions: - Discharge Summary Sheet [facility] - Musculoskeletal Pain [facility] Forms: - Medication Reconciliation Form [facility] - Thank You Letter [facility] Signatures: Dispatcher [employer] EDJoseph Ceron MD MD rn Hadash, Jennifer, FNP FNP [facility] Boone Artis RN RN [facility] Corrections: (The following items were deleted from the chart) 10:19 10:16 Extremity Venous [employer]+US.RAD.BRZ ordered. EDMO JIMMIEMS
--- NOTE | 2022-06-07 11:08 | ER ---
Nurse's Notes [facility] Name: Marcelina Dodosn Age: 31 yrs Sex: Female : 1990 Arrival Date: 06/07/2022 Time: 09:53 Bed 10 Private MD: Diagnosis: Pain in right arm Presentation: 06/07 10:01 Chief complaint: Patient states: seen yesterday at [facility] for right swollen arm. mb8 Patient did not want to wait 4 hours yesterday. Coronavirus screen: Vaccine status: Patient reports being unvaccinated. Ebola Screen: Patient negative for fever greater than or equal to 101.5 degrees Fahrenheit, and additional compatible Ebola Virus Disease symptoms Patient denies exposure to infectious person. Patient denies travel to an Ebola-affected area in the 21 days before illness onset. Initial Sepsis Screen: Does the patient meet any 2 criteria? No. Patient's initial sepsis screen is negative. Does the patient have a suspected source of infection? No. Patient's initial sepsis screen is negative. Risk Assessment: Do you want to hurt yourself or someone else? Patient reports no desire to harm self or others. 10:01 Method Of Arrival: Ambulatory mb8 10:01 Acuity: PEPE 3 mb8 11:14 Onset of symptoms is unknown. mb8 Triage Assessment: 10:04 General: Appears in no apparent distress. Behavior is calm, cooperative, appropriate mb8 for age. Pain: Complains of pain in right arm. Historical: - Allergies: 10:04 Ibuprofen; mb8 10:04 Tramadol HCl; mb8 10:04 PENICILLINS; mb8 - PMHx: 10:04 UTI, Kidney infections/stones; mb8 - Social history:: Smoking status: Patient reports the use of cigarette tobacco products. Screenin:44 Abuse screen: Denies threats or abuse. Denies injuries from another. Nutritional mb8 screening: No deficits noted. Tuberculosis screening: No symptoms or risk factors identified. Fall Risk None identified. Assessment: 10:43 General: Patient reports swelling to right arm, and generalized bodyaches. GI:. mb8 11:06 General: Patient reports she in uncomfortable and is attempting to walk out. She was mb8 informed she would have to sign AMA papers. [facility]OUL[facility]NER talked to patient and will discharge her.. Vital Signs: 10:01 BP 114 / 85; Pulse 100; Resp 16; Temp 97.7; Pulse Ox 99% ; Weight 62.6 kg; Height 5 ft. mb8 4 in. (162.56 cm); Pain 10/10; 10:01 Body Mass Index 23.69 (62.60 kg, 162.56 cm) mb8 ED Course: 09:53 Patient arrived in ED. am2 09:59 Merly Bowman FNP is PSYCHIATRICP. jh7 09:59 Joseph Doshi MD is Attending Physician. 7 10:04 Triage completed. mb8 10:05 Arm band placed on. mb8 10:26 Boone Artis, RN is Primary Nurse. mb8 10:43 UPPER EXTREMITY VENOUS UNILATE In Process Unspecified. EDMS 10:44 Patient has correct armband on for positive identification. mb8 10:44 No provider procedures requiring assistance completed. Patient did not have IV access mb8 during this emergency room visit. Administered Medications: 10:43 Drug: HYDROcodone-acetaminophen 5 mg-325 mg 1 tabs Route: PO; mb8 11:13 Follow up: Response: No adverse reaction; No change in condition mb8 Medication: 10:44 VIS not applicable for this client. mb8 Outcome: 11:08 Discharge ordered by . [facility] 11:13 Discharged to home with family. mb8 11:13 Condition: stable 11:13 Discharge instructions given to patient, Instructed on discharge instructions, follow up and referral plans. Demonstrated understanding of instructions, follow-up care. 11:14 Patient left the ED. mb8 Signatures: Dispatcher [employer] EDMS Karla Allan 2 Merly Bowman FNP [facility] HospitalBoone Gutierres, RN RN mb8
--- NOTE | 2022-06-07 11:16 | RAD REPORT ---
EXAM DESCRIPTION: US - UPPER EXTREMITY VENOUS UNILATE - 06/07/2022 10:41 am CLINICAL HISTORY: Right upper extremity swelling COMPARISON: None. FINDINGS: The right internal jugular, subclavian, brachial, axillary, cephalic, basilic, radial and ulnar veins demonstrate phasic signal. The veins are generally compressible. Doppler demonstrates good flow Patient complains of pain within the right forearm. No underlying sonographic abnormality seen IMPRESSION: No evidence of thrombus involving the right upper extremity
[2022-06-07 11:24] VITALS: BP 114/85; TEMP 97.7; O2SAT 99
== END 2022-06-07 11:14 | disposition home or self-care (01) ==
LOC: ER 09:48
DX: M79.601 Pain in right arm (principal)
CPT/HCPCS: 87804; 93971; 99283

== ENCOUNTER 2023-02-23 12:06 | Emergency (ER) | payer SELFPAY ==
--- OUTSIDE RECORDS SUMMARY | 2023-02-23 12:21 | XMS REPORT | Continuity of Care Document ---
:1990 Author Organization [facility] t Address [address] [facility] [place] [address] Care Team Providers Name Role Phone ELIE NASH Primary Care Physician Unavailable MUSHTAQ THOMAS Attending Clinician Unavailable Mushtaq Thomas MD Attending Clinician NATALIYA MOREL Attending Clinician Unavailable Nataliya Luna Attending Clinician TENNILLE GARBER Attending Clinician Unavailable Tennille Contreras Attending Clinician Aleena Hankins RN Attending Clinician Rick Rutledge Attending Clinician Unavailable Dotty Suárez LVN Attending Clinician CURLY CESPEDES Attending Clinician Unavailable Tatum Shabazz Attending Clinician Abdulaziz Epstein MD Attending Clinician Nancy Hicks MD Attending Clinician [phone] Curly Cespedes MD Attending Clinician Marc JHAVERI Attending Clinician Unavailable Marc Shaw Attending Clinician Tania Hatch Attending Clinician Greta Subramanian Attending Clinician Pcp, Patient Does Not Have A Attending Clinician [phone] UNKNOWN, ATTENDING Attending Clinician Unavailable TABITHA REED Attending Clinician Unavailable thomas Attending Clinician Unavailable MUSHTAQ THOMAS Admitting Clinician Unavailable NATALIYA MOREL Admitting Clinician Unavailable Nancy Hicks MD Admitting Clinician [phone] NANCY HICKS Admitting Clinician Unavailable thomas Admitting Clinician Unavailable Payers Payer Name Policy Type Policy Number Effective Date Expiration Date S ource Problems Condition Condition Condition Status Onset Resolution Last Treating Co mments Source Name Details Category Date Date Treatment Clinician Date Bradycardi Bradycardi Disease Active U nivers a a - ity of 00:: [place] [facility] Hypotensio Hypotensio Disease Active U nivers n n 04-11 ity of 00:: [address] Hypothyroi Hypothyroi Disease Active U nivers dism dism 04-11 ity of 00:: [place] [facility] Elevated Elevated Disease Active Unive rs brain brain 04-11 ity of natriure[place] nat[place]ureti 00:[place] c peptide c peptide 00 [facility] jai (BNP) (BNP) Branch level level Cigarette Cigarette Disease Active Uni vers smoker smoker 04-11 ity of 00:: [address] Syncope, Syncope, Disease Active Unive rs unspecifie unspecifie 10 it y of d syncope d [place] type type 00 [place] No known No known Disease Unive rs active active ity of problems problems [facility] Allergies, Adverse Reactions, Alerts Allergy Allergy Status Severity Reaction(s) Onset Inactive Treating Comm ents Source Name Type Date Date Clinician PHENAZOP DRUG Active Other-Cmnt Univ ers YRIDINE INGREDI 4-16 ity of 00:00: [place] 00 Medical Branch Phenazop Propensi Active Other - See 0 U nivers yridine ty to comments 4-16 ity of adverse 00:00: [place] reaction 00 Medical s Branch DEXTROAM DRUG Active Other-Cmnt Univ ers PHETAMIN 9-10 ity of E-AMPHET 00:00: [place] AMINE 00 Medical Branch Dextroam Propensi Active Other - See U nivers phetamin ty to comments 9-10 ity of e-Amphet adverse 00:00: [place] amine reaction 00 Medical s Branch TRAMADOL DRUG Active Rash Univers INGREDI 1-22 ity of 00:00: [place] 00 Medical Branch Tramadol Propensi Active Rash Univer s ty to 1-22 ity of adverse 00:00: [place] reaction 00 Medical [facility] NO KNOWN Drug Active Univers ALLERGIE Class ity of [place] [facility] Social History Social Habit Start Date Stop Date Quantity Comments Source History of tobacco Passive smoker Un iversity of use [facility] ASSERTION [facility] Exposure to 2022-11-04 2022-11-14 Not sure [facility] SARS-CoV-2 (event) 00:00:00 21:11:00 [facility] Alcohol intake 2022-11-11 2022-11-11 0 /d University of 00:00:00 00:00:00 [facility] Cigarettes smoked 2022-04-13 2022-04-13 Univers ity of current (pack per 00:00:00 00:00:00 [place] ) - Reported Branch Tobacco use and 2022-04-13 2022-04-13 Smokeless Universit y of exposure 00:00:00 00:00:00 tobacco non-user [facility] Sex Ass[birth year] At [birth year] Universit y of 00:00:00 00:00:00 [facility] Smoking Status Start Date Stop Date Source Smokes tobacco daily 2022-04-13 00:00:00 Univers ity [facility] Medications Ordered Filled Start Stop Current Ordering Indication Dosage Frequency Signature Comments Components Source Medication Medication Date Date Medication? Clinician (SIG) Name Name ciprofloxac 2022- No 500mg 500 mg, U nivers in HCl 4-17 04-17 Oral, ity of (CIPRO) 06:00: 04:58 ONCE, 1 [place] tablet 500 00 :00 dose, On Medic al mg Mon [place] 11/15/22 at 0100, FLY
Re ason for Anti-Infec tive: Documented Infection< br>Documen leidy Infection Site: Urine
D uration of Therapy: Other (see Comments) morpHINE (4 2022- No 4mg 4 mg, Slow Univers mg/mL) 11-15 IV Push, ity of injection 4 04:30: 04:15 ONCE, 1 [place] mg 00 :00 dose, On Medical [facility] 11/14/22 at 2330, STAT NaCl 0.9% 2022- No 500mL at 999 Univ ers (NS) bolus 11-15 mL/hr, 500 it y of infusion 04:29: 05:06 mL, IV [place] 500 mL 00 :00 Piggyback, Medical ONCE, 1 Branch dose, On [place] 11/14/22 at 2330, STAT ondansetron 2022- No 4mg 4 mg, Slow Univers (ZOFRAN 11-15 IV Push, ity of (PF)) 03:45: 03:34 ONCE, 1 [place] injection 4 00 :00 dose, On Medi jai mg [facility] 11/14/22 at 2245, FLY ketorolac 2022- No 30mg 30 mg, Unive rs (TORADOL) 11-15 Slow IV ity of injection 03:30: 03:34 Push, [place] 30 mg 00 :00 ONCE, 1 Medical dose, On Branch [place] 11/14/22 at 2245, Routine ciprofloxac Yes [id number] 500mg Take 1 Univers in HCl 500 16 tablet by ity of mg tablet 00:00: mouth [place] 00 the Medical morning Branch and 1 tablet in the evening. ondansetron 2022- No 4mg 4 mg, Slow Univers (ZOFRAN 11-11 IV Push, ity of (PF)) 08:30: 08:19 ONCE, 1 [place] injection 4 00 :00 dose, On Medi jai mg [place] 11/11/22 at 0330, FLY FENTanyl PF No 50ug 50 mcg, Un jg (SUBLIMAZE 11-11 Slow IV ity o f (PF)) 08:15: 08:19 Push, [place] injection 00 :00 ONCE, 1 Medical 50 mcg dose, On Branch [place] 11/11/22 at 0315, STAT HYDROcodone 2022- No 1{tbl} 1 tablet, Univers -acetaminop 11-11 Oral, ity of hen (NORCO 08:15: 07:32 ONCE, 1 [place] 5) 5-325 mg 00 :00 dose, On Medi jai tablet 1 [place] Branch tablet 11/11/22 at 0315, FLY iopamidol 2022- No [id number] 75mL 75 mL, Univers (ISOVUE 11-11 Intravenou ity o f 370-500 mL) 08:15: 08:15 s, ONCE, 1 [place] injection 00 :00 dose, On Medica l 75 mL [place] 11/11/22 at 0315, Routine ketorolac No 15mg 15 mg, Unive rs (TORADOL) 11-11 Slow IV ity of injection 07:30: 06:50 Push, [place] 15 mg 00 :00 ONCE, 1 Medical dose, On Branch [place] 11/11/22 at 0230, Routine cefTRIAXone No 1000mg 1,000 mg, Univers (ROCEPHIN) 11-11 IV ity of 1,000 mg in 07:15: 08:23 Piggyback, [place] NaCl 0.9% 00 :00 ONCE, 1 Medical (NS) 100 mL dose, On Bran ch MINI-BAG [facility] 11/11/22 at 0215, Administer over 30 Minutes, 100 mL
Reas on for Anti-Infec tive: Documented Infection< br>Documen leidy Infection Site: Urine<br&g t;Duration of Therapy: Other (see Comments) phenazopyri Yes [id number] 200mg Take 1 Univers dine 200 mg 11-11 tablet by ity of tablet 00:00: mouth in [place] 00 the Medical morning Branch and 1 tablet at noon and 1 tablet in the evening. phenazopyri Yes [id number] 200mg Take 1 Univers dine 200 mg 4-13 tablet by ity of tablet 00:00: mouth in [place] 00 the Medical morning Branch and 1 tablet at noon and 1 tablet in the evening. cefpodoxime 2022- No [id number] 100mg Take 1 Univers 100 mg 4-13 -21 tablet by ity of tablet 00:00: 04:59 mouth in [place] 00 :00 the Medical morning Branch and 1 tablet in the evening. Do all this for 7 days. cefpodoxime 0 2022- No [id number] 100mg Take 1 Univers 100 mg 4-13 -21 tablet by ity of tablet 00:00: 04:59 mouth in [place] 00 :00 the Medical morning Branch and 1 tablet in the evening. Do all this for 7 days. HYDROcodone 2021-08 No 1{tbl} 1 tablet, Univers -acetaminop 08-06 Oral, ity of hen (NORCO 15:15: 15:14 ONCE, 1 [place] 5) 5-325 mg 00 :00 dose, On Medi jai tablet 1 [place] Branch tablet 06/06/22 at 0915, FLY ketorolac 2021-08 No 60mg 60 mg, Unive rs (TORADOL) 08-06 Intramuscu ity of injection 15:15: 15:16 [place], ONCE, [place] 60 mg 00 :00 1 dose, On Medical [place] 06/06/22 at 0915, FLY levothyroxi Yes [id number] 100ug Take 1 Univers ne 100 mcg 9-17 tablet by ity of tablet 00:00: mouth [place] 00 every Medical morning. Branch levothyroxi 0 Yes [id number] 100ug Take 1 Univers ne 100 mcg 9-17 tablet by ity of tablet 00:00: mouth [place] 00 every Medical morning. Branch levothyroxi 0 Yes [id number] 100ug Take 1 Univers ne 100 mcg 9-17 tablet by ity of tablet 00:00: mouth [place] 00 every Medical morning. Branch levothyroxi 0 Yes [id number] 100ug Take 1 Univers ne 100 mcg 9-17 tablet by ity of tablet 00:00: mouth [place] 00 every Medical morning. Branch levothyroxi 2021-0 Yes [id number] 100ug Take 1 Univers ne 100 mcg 9-17 tablet by ity of tablet 00:00: mouth [place] 00 every Medical morning. Branch levothyroxi 2021-0 Yes [id number] 100ug Take 1 Univers ne 100 mcg 9-17 tablet by ity of tablet 00:00: mouth [place] 00 every Medical morning. Branch levothyroxi 2021-0 Yes [id number] 100ug Take 1 Univers ne 100 mcg 9-17 tablet by ity of tablet 00:00: mouth [place] 00 every Medical morning. Branch levothyroxi 2021-0 Yes [id number] 100ug Take 1 Univers ne 100 mcg 9-17 tablet by ity of tablet 00:00: mouth [place] 00 every Medical morning. Branch levothyroxi 2021-0 Yes [id number] 100ug Take 1 Univers ne 100 mcg 9-17 tablet by ity of tablet 00:00: mouth [place] 00 every Medical morning. Branch levothyroxi 2021-0 Yes [id number] 100ug Take 1 Univers ne 100 mcg 9-17 tablet by ity of tablet 00:00: mouth [place] 00 every Medical morning. Branch levothyroxi 2021-0 Yes [id number] 100ug Take 1 Univers ne 100 mcg [...] 25 mg Branch 24 hr capsule amphetamine 2-0 Yes 25mg Take 25 mg Univers -dextroamph 9-16 by mouth ity of etamine 11:43: every [place] (ADDERALL 45 morning. Medica l XR) 25 mg Branch 24 hr capsule amphetamine 2-0 Yes 25mg Take 25 mg Univers -dextroamph 9-16 by mouth ity of etamine 11:43: every [place] (ADDERALL 45 morning. Medica l XR) 25 mg Branch 24 hr capsule amphetamine 2-0 Yes 25mg Take 25 mg Univers -dextroamph 9-16 by mouth ity of etamine 11:43: every [place] (ADDERALL 45 morning. Medica l XR) 25 [...] by mouth ity of etamine 11:43: every [place] (ADDERALL 45 morning. Medica l XR) 25 mg Branch 24 hr capsule amphetamine 2022-0 Yes 25mg Take 25 mg Univers -dextroamph 9-16 by mouth ity of etamine 11:43: every [place] (ADDERALL 45 morning. Medica l XR) 25 mg Branch 24 hr capsule amphetamine 2022-0 Yes 25mg Take 25 mg Univers -dextroamph 9-16 by mouth ity of etamine 11:43: every [place] (ADDERALL 45 morning. Medica l XR) 25 mg Branch 24 hr capsule amphetamine 2022-0 Yes 25mg Take 25 mg Univers -dextroamph 9-16 by mouth ity of etamine 11:43: every [place] (ADDERALL 45 morning. Medica l XR) 25 mg Branch 24 hr capsule ketorolac 2021- No 30mg 30 mg, Unive rs (TORADOL) 04-1616 Slow IV ity of injection 03:45: 02:55 Push, [place] 30 mg 00 :00 ONCE, 1 Medical dose, On Branch [place] 04/15/22 at 2245, Routine NaCl 0.9% 2021- No 1000mL at 250 Uni vers (NS) bolus 04-1515 mL/hr, ity of infusion 21:00: 21:30 1,000 mL, [place] 1,000 mL 00 :36 IV Medical Piggyback, Branch ONCE, 1 dose, On [facility] 04/15/22 at 1600, FLY ketorolac 0 2021- No 30mg 30 mg, Unive rs [...] Until Discontinu ed, Routine gadobenate 2021- No [id number] .2mL/kg 11.3 mL Univers dimeglumine 04-15 (0.2 [...] HYDROcodone Yes 1{tbl} 1 tablet, Univers -acetaminop 15 Oral, ity of hen (NORCO 12:30: [facility] 5-325 mg 16 Starting Medi jai tablet 1 on Tue Branch tablet 04/15/22 at 0730, Until Discontinu ed, Routine, Pain (scale 7-10) sennosides- Yes 1{tbl} 1 tablet, Univers docusate -15 Oral, ity of sodium 02:00: DAILY, [place] (SENOKOT-S) 00 First dose Me dical 8.6-50 mg on Tue per tablet 04/14/22 at 1 tablet 2100, Until Discontinu ed, Routine ketorolac 2021- No 30mg 30 mg, Unive rs (TORADOL) 04-14 Slow IV ity of injection 20:45: 20:48 Push, [place] 30 mg 00 :00 ONCE, 1 Medical dose, On Branch Tue04/14/22 at 1545, Routine lactated 2021- No 1000mL at 999 [facility] ers ringers IV 04-14 mL/hr, ity of infusion 18:00: 18:00 1,000 mL, [place] 1,000 mL 00 :00 Intravenou Medic al s, ONCE, 1 Branch dose, On Tue04/14/22 at 1300, Routine polyethylen 2021- No 17g 17 g, [facility] ers e glycol 04-14 Oral, ity of 3350 powder 14:00: 01:50 DAILY, [place] 17 g 00 :52 First dose Medical on Tue04/14/22 at 0900, Until Discontinu ed, Routine magnesium 2021- No 4g 4 g, IV [facility] ers sulfate in 04-14 Piggyback, it y of water 4 13:30: 14:00 ONCE, 1 [place] gram/50 mL 00 :00 dose, On Medic al (8 %) IV Tue Piggyback 4 04/14/22 at g 0830, Routine KCL 2021- No 40meq 40 mEq, Univers (KLOR-CON 04-14 Oral, ity of M20) tablet 13:30: 13:19 ONCE, 1 [place] 40 mEq 00 :00 dose, On Medical Tue04/14/22 at 0830, Routine cyclobenzap Yes 10mg 10 mg, [facility] ers rine 04-13 Oral, TID, ity of [...] :00 1 dose, On Me dical mL [facility] Branch 04/12/22 at 1130, Routine NaCl 0.9% Yes 10mL 10 mL, Univer s (NS) 04-12 Slow IV ity of injection 16:20: Push, PRN, [place] 10 mL 14 Starting Medical on [facility] Branch 04/12/22 at 1120, Until Discontinu ed, Routine, line maintenanc e morpHINE (2 2021- No 2mg 2 mg, Slow Univers mg/mL) 04-12 IV Push, ity of injection 2 14:49: 12:30 Q6HPRN, [place] mg 56 :42 Starting Medical on [facility] Branch 04/12/22 at 0949, Until Alivia 04/15/22 at 0730, Routine, Pain (scale 7-10) HYDROcodone 2021- No 1{tbl} 1 tablet, Univers -acetaminop 04-12 Oral, ity of hen (NORCO 14:49: 12:30 Q4HPRN, [place] 5) 5-325 mg 30 :42 Starting Medi jai tablet 1 on [facility] tablet 04/12/22 at 0949, Until Alivia 04/15/22 at 0730, Routine, Pain (scale 4-6) cholecalcif Yes 2000U 2,000 Univ ers genevieve 04-12 Units, ity of (vitamin 14:00: Oral, [place] D3) tablet 00 DAILY, Medical 2,000 Units First dose Br anch (after last modificati on) on [facility] 04/12/22 at 0900, Until Discontinu ed, Routine thiamine Yes 100mg 100 mg, Unive rs (VITAMIN 04-12 Oral, ity of B1) tablet 14:00: DAILY, [place] 100 mg 00 First dose Medical on [facility] 04/12/22 at 0900, Until Discontinu ed, Routine levothyroxi 2021- No 100ug 100 mcg, Univers ne 04-12 Intravenou ity of (SYNTHROID) 13:45: 13:52 s, ONCE, 1 [place] injection 00 :00 dose, On Medica l 100 mcg [facility] 04/12/22 at 0845, Routine levothyroxi 2021- No 50ug 50 mcg, Un jg ne 04-12 Oral, ity of (SYNTHROID) 11:00: 16:20 QAM-0600, [place] tablet 50 00 :48 First dose Medi jai mcg (after Branch last modificati on) on [facility] 04/12/22 at 0600, Until Discontinu ed, Routine morpHINE (2 2021- No 2mg 2 mg, Slow Univers mg/mL) 04-12 IV Push, ity of injection 2 09:14: 09:27 PRN, 1 [place] mg 26 :00 dose, Medical Starting Branch on Tue04/12/22 at 0414, Until Tue04/12/22 at 0427, Routine, headache DOPamine 2021- No 2.5ug/k 2.5-7.5 Un jg 800 mg/500 04-12 g/min mcg/kg/min i ty of mL (1,600 02:53: 16:32 ?55.5 kg [place] mcg/mL) 09 :25 ( Medica l infusion .6094 Branch RTU mL/hr, rounded to 5.2-15.61 mL/hr), IV Infusion, TITRATE, SBP Goal 100-140 mmHg, HR > 60, Starting on [place] 04/11/22 at 2152
In itiate infusion at 2.5 mcg/kg/min . [...] as mg 32 :06 Starting Medical on [facility] 04/11/22 at 2152, Until Tue04/12/22 at 1041, Routine, Pain (scale 1-3) DOPamine 2021- No 2.5ug/k 2.5-7.5 Un jg 800 mg/500 04-12 g/min mcg/kg/min i ty of mL (1,600 02:39: 02:53 ?55.5 kg [place] mcg/mL) 25 :28 ( Medica l infusion .6094 Branch RTU mL/hr, rounded to 5.2-15.61 mL/hr), IV Infusion, TITRATE, SBP Goal 100-140 mmHg, HR > 60, Starting on [place] 04/11/22 at 2139
In itiate infusion at [...] on 04/11/22 at 1700, Last dose on 04/12/22 at 0000, 2 mL proCHLORper Yes 10mg 10 mg, Univ ers azine 04-11 Slow IV ity of (COMPAZINE) 21:28: Push, [place] injection 31 Q6HPRN, Medical 10 mg Starting Branch on [place] 04/11/22 at 1628, Until Discontinu ed, Routine, [...] (after Medical last Branch modificati on) on [place] 04/11/22 at 1115, Until Discontinu ed, Routine cosyntropin No 250ug 250 mcg, Univers (CORTROSYN) 04-11 Slow IV ity of injection 15:45: 16:40 Push, [place] 250 mcg 00 :00 ONCE, 1 Medical dose, On Branch [place] 04/11/22 at 1045, Routine enoxaparin Yes 30mg 30 mg, Unive rs (LOVENOX) 04-11 Subcutaneo ity of injection 14:00: us, DAILY, [place] 30 mg 00 First dose Medical on [facility] 04/11/22 at 0900, Until Discontinu ed, Routine DOPamine 2021- No 5ug/kg/ 5 Unive rs 800 mg/500 04-11 min mcg/kg/min it y of mL (1,600 12:00: 01:40 ?55.5 kg [place] mcg/mL) 00 :01 (10.4063 Medical infusion mL/hr, Branch RTU rounded to 10.41 mL/hr), IV Infusion, CONTINUOUS , Starting on [place] 04/11/22 at 0700 levothyroxi 2021- No 25ug 25 mcg, Un jg ne 04-11 Oral, ity of (SYNTHROID) 11:00: 11:19 [facility]-0600, [place] tablet 25 00 :00 1 dose, Medical mcg First dose Branch on [place] 04/11/22 at 0600, Routine atropine 2021- No .5mg 0.5 mg, IV Un jg injection 04-11 Push, ity of 0.5 mg 06:00: 05:02 ONCE, 1 [place] 00 :00 dose, On Medical [facility] 04/11/22 at 0100, Routine ondansetron Yes 4mg 4 mg, Slow Univers (ZOFRAN 04-11 IV Push, ity of (PF)) 05:41: Q6HPRN, [place] injection 4 54 Starting Medi jai mg on [facility] 04/11/22 at 0041, Until Discontinu ed, Routine, Nausea and Vomiting (N/V) butalbital- 2021- No 1{tbl} 1 tablet, Univers acetaminoph 04-11 Oral, ity of en-caff 01:18: 16:35 Q4HPRN, [place] (ESGIC) 20 :31 Starting Medical 50-325-40 on Sat Branch mg tablet 1 04/10/22 at tablet 2018, Until 04/12/22 at 1135, Routine, headache clonazePAM 2021- No 1mg 1 mg, Unive rs (KLONOPIN) 04-10 Oral, BID, it y of tablet 1 mg 20:45: 05:01 First dose [place] 00 :41 on [facility] Medical 04/10/22 at Branch 1545, Until Discontinu ed, Routine acetaminoph Yes 650mg 650 mg, Un jg en 04-10 Oral, ity of (TYLENOL) 18:51: Q6HPRN, [place] tablet 650 25 Starting Medic al mg on [facility] Branch 04/10/22 at 1351, Until Discontinu ed, Routine, Pain (scale 1-3) ketorolac 2021- No 15mg 15 mg, Unive rs (TORADOL) 04-10 Slow IV ity of injection 18:50: 15:41 Push, [place] 15 mg 26 :06 Q6HPRN, Medical Starting Branch on [facility] 04/10/22 at 1350, Until 04/12/22 at 1041, Routine, Pain (scale 4-6) iopamidol 2021- No [id number] 70mL 70 mL, Univers (ISOVUE 04-10 Intravenou ity o f 370-500 mL) 18:15: 18:15 s, ONCE, 1 [place] injection 00 :00 dose, On Medica l 70 mL [facility] 04/10/22 at 1315, Routine NaCl 0.9% 2021- No 1000mL at 999 Uni vers (NS) bolus 04-10 mL/hr, ity of infusion 16:00: 16:36 1,000 mL, [place] 1,000 mL 00 :00 IV Medical Infusion, Branch ONCE, 1 dose, On [facility] 04/10/22 at 1100, FLY acetaminoph 2021- No 1000mg 1,000 mg, Univers en 04-10 Oral, ity of (TYLENOL) 16:00: 15:50 ONCE, 1 [place] tablet 00 :00 dose, On Medical 1,000 mg [facility] 04/10/22 at 1100, FLY ALPRAZOLAM 2021- No Take by Uni vers ORAL 04-10 mouth. ity of 15:31: 00:00 [place] 37 :00 Medical Branch NaCl 0.9% 2021- No 1000mL at 999 Uni vers (NS) bolus 04-10 09-10 mL/hr, ity of infusion 14:45: 15:05 1,000 [...] (NS) bolus 04-1010 mL/hr, ity of infusion 14:30: 15:05 1,000 mL, [place] 1,000 mL 00 :00 IV Medical Infusion, Branch ONCE, 1 dose, On 04/10/22 at 0930, FLY ondansetron Yes [id number] 4mg Take 1 Univers (ZOFRAN -23 tablet by ity of ODT) 4 mg 00:00: mouth [place] disintegrat 00 every 8 Medic al ing tablet (eight) Branch hours as needed for Nausea and Vomiting (N/V). ondansetron 2021- No [id number] 4mg Take 1 Univers (ZOFRAN 08-23-10 tablet by ity of ODT) 4 mg 00:00: 00:00 mouth [place] disintegrat 00 :00 every 8 Medic al ing tablet (eight) Branch hours as needed for Nausea and Vomiting (N/V). cephALEXin 2021-2021- No [id number] 500mg Take 1 Univers (KEFLEX) 08-23 capsule by ity of 500 mg 00:00: 05:59 mouth 3 [place] capsule 00 :00 (three) Medical times Branch daily for 10 days. metroNIDAZO 2020- No [id number] 500mg Take 1 Univers LE (FLAGYL) 03-2603 tablet by it y of 500 mg 00:00: 04:59 mouth 2 [place] tablet 00 :00 (two) Medical times Branch daily for 7 days. metroNIDAZO 2020- No [id number] 500mg Take 1 Univers LE 500 mg 03-23 tablet by ity of tablet 00:00: 04:59 mouth 2 [place] 00 :00 (two) Medical times Branch daily for 7 days. metroNIDAZO 2020- No [id number] 500mg Take 1 Univers LE 500 mg 03-23 tablet by ity of tablet 00:00: 04:59 mouth 2 [place] 00 :00 (two) Medical times Branch daily for 7 days. metroNIDAZO 2020- No [id number] 500mg Take 1 Univers LE 500 mg 03-23 tablet by ity of tablet 00:00: 04:59 mouth 2 [place] 00 :00 (two) Medical times Branch daily for 7 days. metroNIDAZO 2020- No [id number] 500mg Take 1 Univers LE 500 mg 03-23 tablet by ity of tablet 00:00: 04:59 mouth 2 [place] 00 :00 (two) Medical times Branch daily for 7 days. ALPRAZOLAM Yes Take by [facility] ers ORAL 8-21 mouth. ity of 23:35: [address] ALPRAZOLAM Yes Take by Uni vers ORAL 8-21 mouth. ity of 23:35: [place] [facility] ALPRAZOLAM Yes Take by Univ ers ORAL 8-21 mouth. ity of 23:35: [address] ALPRAZOLAM Yes Take by [facility] ers ORAL 8-21 mouth. ity of 23:35: [address] ALPRAZOLAM Yes Take by [facility] ers ORAL 8-21 mouth. ity of 18:35: [address] valACYclovi 2020- No [id number] 1g Take 1 Univers r 1 gram 03-21- tablet by ity o f tablet 00:00: 04:59 mouth 3 [place] 00 :00 (three) Medical times Branch daily for 7 days. valACYclovi 2020- No [id number] 1g Take 1 Univers r 1 gram 03-21-29 tablet by ity o f tablet 00:00: 04:59 mouth 3 [place] 00 :00 (three) Medical times Branch daily for 7 days. valACYclovi 2021-0 2020- No [id number] 1g Take 1 Univers r 1 gram 03-21-29 tablet by ity o f tablet 00:00: 04:59 mouth 3 [place] 00 :00 (three) Medical times Branch daily for 7 days. valACYclovi 2021-0 1- No [id number] 1g Take 1 Univers r 1 gram -21 03- tablet by ity o f tablet 00:00: 04:59 mouth 3 [place] 00 :00 (three) Medical times [place] daily for 7 days. clonazePAM 2021-0 Yes 2mg Take 2 mg Un jg 2 mg tablet 8-09 by mouth 2 it y of 00:00: (two) [place] 00 times Medical daily. Branch clonazePAM 2021-0 Yes 2mg Take 2 mg Un jg 2 mg tablet 8-09 by mouth 2 it y of 00:00: (two) [place] 00 times Medical daily. Branch clonazePAM 2021-0 Yes 2mg Take 2 mg Un jg 2 mg tablet 8-09 by mouth 2 it y of 00:00: (two) [place] 00 times Medical daily. Branch clonazePAM 2021-0 Yes 2mg Take 2 mg Un jg 2 mg tablet 8-09 by mouth 2 it y of 00:00: (two) [place] 00 times Medical daily. Branch clonazePAM 2021-0 Yes 2mg Take 2 mg Un jg 2 mg tablet 8-09 by mouth 2 it y of 00:00: (two) [place] 00 times Medical daily. Branch clonazePAM 2021-0 Yes 2mg Take 2 mg Un jg 2 mg tablet 8-09 by mouth 2 it y of 00:00: (two) [place] 00 times Medical daily. Branch clonazePAM 2021-0 Yes 2mg Take 2 mg Un jg 2 mg tablet 8-09 by mouth 2 it y of 00:00: (two) [place] 00 times Medical daily. Branch clonazePAM 2021-0 Yes 2mg Take 2 mg Un jg 2 mg tablet 8-09 by mouth 2 it y of 00:00: (two) [place] 00 times Medical daily. Branch clonazePAM 2021-0 Yes 2mg Take 2 mg Un jg 2 mg tablet 8-09 by mouth 2 it y of 00:00: (two) [place] 00 times Medical daily. Branch clonazePAM 2021-0 Yes 2mg Take 2 mg Un jg 2 mg tablet 8 by mouth 2 it y of 00:00: (two) 00 times Medical daily. Branch clonazePAM 2021-0 Yes 2mg Take 2 mg Un jg 2 mg tablet 8 by mouth 2 it y of 00:00: (two) 00 times Medical daily. Branch clonazePAM 2021-0 Yes 2mg Take 2 mg Un jg 2 mg tablet 8 by mouth 2 it y of 00:00: (two) 00 times Medical daily. Branch clonazePAM 2021-0 Yes 2mg Take 2 mg Un jg 2 mg tablet 8 by mouth 2 it y of 00:00: (two) 00 times Medical daily. Branch clonazePAM 2021-0 Yes 2mg Take 2 mg Un jg 2 mg tablet 8 by mouth 2 it y of 00:00: (two) [place] 00 times Medical daily. Branch clonazePAM 2021-0 Yes 2mg Take 2 mg Un jg 2 mg tablet 8 by mouth 2 it y of 00:00: (two) [place] 00 times Medical daily. Branch clonazePAM 1-0 Yes 2mg Take 2 mg Un jg 2 mg tablet 8 by mouth 2 it y of 00:00: (two) [place] 00 times Medical daily. Branch ALPRAZOLAM 2018-0 Yes Take by Univ ers ORAL 5-15 mouth. ity of 16:08: [place] 13 Medical Branch amoxicillin 2018-0 Yes 875mg Take 1 Uni vers 875 mg 5-15 tablet by ity of tablet 00:00: mouth 2 [place] (two) Medical times Branch daily. traMADOL 50 2018-0 Yes 50mg Take 1 Univ ers mg tablet 5-15 tablet by ity o f 00:00: mouth [place] 00 every 6 Medical (six) Branch hours as needed for Pain (scale 4-6). amoxicillin 2018-0 Yes 875mg Take 1 Uni vers 875 mg 5-15 tablet by ity of tablet 00:00: mouth 2 [place] 00 (two) Medical times Branch daily. traMADOL 50 2018-0 Yes 50mg Take 1 Univ ers mg tablet 5-15 tablet by ity o f 00:00: mouth [place] 00 every 6 Medical (six) Branch hours [...] tablet by ity of tablet 00:00: mouth (two) Medical times Branch daily. traMADOL 50 [...] Medical times Branch daily. traMADOL 50 2018-0 2- No 50mg Take 1 Uni vers mg tablet 5-15 09-10 tablet by ity of 00:00: 00:00 mouth [place] 00 :00 every 6 Medical (six) Branch hours as needed for Pain (scale 4-6). Vital Signs Vital Name Observation Time Observation Value Comments Source Systolic blood 2022-11-15 93 mm[Hg] University of pressure 05:00:00 [place] [facility] Diastolic blood 2022-11-15 64 mm[Hg] University o f pressure 05:00:00 [facility] Branch Heart rate 2022-11-15 50 /min University of 05:00:00 [facility] Body temperature 2022-11-15 36.22 Estrella University of 05:00:00 [facility] Branch Oxygen saturation 2022-11-15 98 /min University of in Arterial blood 05:00:00 [facility] jai by Pulse oximetry Branch Respiratory rate 2022-11-15 19 /min University of 03:00:00 [facility] Branch Body height 2022-11-15 162.6 cm University of 02:00:00 [facility] Body weight 2022-11-15 63.504 kg University of 02:00:00 [facility] BMI 2022-11-15 24.03 kg/m2 University of 02:00:00 [facility] Systolic blood 2022-11-11 118 mm[Hg] University of pressure 08:00:00 [facility] Diastolic blood 2022-11-11 68 mm[Hg] University o f pressure 08:00:00 [facility] Heart rate 2022-11-11 53 /min University of 08:00:00 [facility] Branch Respiratory rate 2022-11-11 16 /min University of 08:00:00 [facility] Oxygen saturation 2022-11-11 100 /min [place] of in Arterial blood 08:00:00 [facility] by Pulse oximetry Branch Body temperature 2022-11-11 36.61 Estrella University of 06:43:00 [facility] Body height 2022-11-11 162.6 cm University of 06:43:00 [facility] Body weight 2022-11-11 58.968 kg University of 06:43:00 [facility] BMI 2022-11-11 22.31 kg/m2 University of 06:43:00 [facility] Systolic blood 2022-06-06 117 mm[Hg] University of pressure 14:19:00 [facility] Branch Diastolic blood 2022-06-06 85 mm[Hg] University o f pressure 14:19:00 [place] [facility] Heart rate 2022-06-06 89 /min University of 14:19:00 [facility] Branch Body temperature 2022-06-06 36.28 Estrella University of 14:19:00 [place] [facility] Respiratory rate 2022-06-06 16 /min University of 14:19:00 [facility] Body height 2022-06-06 162.6 cm University of 14:19:00 [facility] Branch Body weight 2022-06-06 58.968 kg University of 14:19:00 [facility] Branch BMI 2022-06-06 22.31 kg/m2 University of 14:19:00 [facility] Systolic blood 2022-04-16 98 mm[Hg] University of pressure 13:23:00 [facility] Branch Diastolic blood 2022-04-16 65 mm[Hg] University o f pressure 13:23:00 [facility] Branch Heart rate 2022-04-16 107 /min University of 13:23:00 [facility] Body temperature 2022-04-16 36.44 Estrella University of 13:19:00 [facility] Branch Respiratory rate 2022-04-16 18 /min University of 13:19:00 [facility] Oxygen saturation 2022-04-16 97 /min [place] of in Arterial blood 13:19:00 [facility] jai by Pulse oximetry Branch Body weight 2022-04-16 58.469 kg bed scale was University of 09:36:00 used, pt [facility] to Branch stand on the regular scale BMI 2022-04-16 22.13 kg/m2 University of 09:36:00 [facility] Body height 2022-04-14 162.6 cm University of 01:00:00 [facility] Systolic blood 2021-08-23 121 mm[Hg] University of pressure 05:10:00 [facility] Diastolic blood 2021-08-23 90 mm[Hg] University o f pressure 05:10:00 [facility] Heart rate 2021-08-23 74 /min University of 05:10:00 [facility] Body temperature 2021-08-23 36.56 Estrella University of 05:10:00 [facility] Respiratory rate 2021-08-23 19 /min University of 05:10:00 [facility] Body height 2021-08-23 162.6 cm University of 05:10:00 [facility] Body weight 2021-08-23 56.7 kg University of 05:10:00 [facility] BMI 2021-08-23 21.46 kg/m2 University of 05:10:00 [facility] Oxygen saturation 2021-08-23 100 /min University of in Arterial blood 05:10:00 [place] Medi jai by Pulse oximetry Branch Procedures Procedure Date / Time Performing Clinician Source Performed US OVARY TORSION 2022-11-15 William [facility] [place] 04:11:07 Medical Branch POCT TEST 2022-11-[address] [facility] o f [place] 02:50:00 Medical Branch COMP. METABOLIC PANEL 2022-11-15 William [facility] ([id number]) 02:44:00 Medical Branch CBC WITH DIFF 2022-11-15 William [facility] [place] 02:44:00 Medical Branch URINALYSIS 2022-11-15 William [facility] xa 02:44:00 Medical Branch NOTICE OF PRIVACY PRACTICES 2022-11-15 Doctor Unassigned, [facility] 01:58:59 [facility] CONSENT/REFUSAL FOR 2022-11-15 Doctor Unassigned, [facility] DIAGNOSIS AND TREATMENT 01:58:33 [facility] BASIC METABOLIC PANEL (NA, 2022-11-11 [facility] K, CL, CO2, GLUCOSE, BUN, 06:49:00 Medica l [place] CREATININE, CA) CBC WITH DIFF 2022-11-11 [facility] [place] [facility] 06:49:00 Medical Branch URINALYSIS 2022-11-11 [facility] 06:47:00 Medical Branch POCT TEST 2022-11-11 [facility] 06:47:00 Medical Branch NOTICE OF PRIVACY PRACTICES 2022-11-11 Doctor Unassigned, [facility] 06:39:53 [facility] CONSENT/REFUSAL FOR 2022-11-11 Doctor Unassigned, [facility] DIAGNOSIS AND TREATMENT 06:37:56 [facility] CONSENT/REFUSAL FOR 2022-06-06 Doctor Unassigned, [facility] DIAGNOSIS AND TREATMENT 14:13:56 [facility] MAGNESIUM 2022-04-16 Akin Raimundo [facility] xa 09:34:00 Medical Branch BASIC METABOLIC PANEL (NA, 2022-04-16 Raimundo Gerardo [facility] K, CL, CO2, GLUCOSE, BUN, 09:34:00 Medica l Branch CREATININE, CA) CBC WITH DIFF 2022-04-16 Akin [facility] [place] 09:34:00 Medical Branch MR CARDIAC MORPHOLOGY W WO 2022-04-15 [facility] CONTRAST 15:45:00 Medical Branch MAGNESIUM 2022-04-15 [facility] [place] 10:03:00 Medical Branch HEPATIC FUNCTION PANEL 2022-04-15 [facility] ([id number]) (ALB,T.PRO,BILI 10:03:00 Medical Branch T,BU/BC,ALT,AST,ALK PHOS) BASIC METABOLIC PANEL (NA, 2022-04-15 [facility] K, CL, CO2, GLUCOSE, BUN, 10:03:[address] [facility] CREATININE, CA) CBC WITH DIFF 2022-04-15 [facility] 10:03:00 [facility] PROTHROMBIN TIME / INR 2022-04-15 [facility] 10:03:00 [facility] HEPATITIS B SURFACE ANTIBODY 2022-04-15 [facility] 10:03:00 [facility] HCV ANTIBODY 2022-04-15 [facility] 10:03:00 [facility] HBC ANTIBODY (IGM & IGG) 2022-04-15 [facility] 10:03:00 [facility] GC & CHLAMYDIA AMPLIFIED 2022-04-14 [facility] ASSAY 17:08:00 Medical Branch ANTICARDIOLIPIN ANTIBODIES 2022-04-14 [facility] 15:17:00 [facility] THYROID PEROXIDASE (TPO) AB 2022-04-14 [facility] 15:17:00 Medical Branch CYCLIC CITRULLINATED PEPTIDE 2022-04-14 [facility] 15:17:00 Medical Branch ANTI-B2 GLYCOPROTEIN I AB 2022-04-14 [facility] 15:17:00 Medical Branch BASIC METABOLIC PANEL (NA, 2022-04-14 Ernesto Ceballos [facility] K, CL, CO2, GLUCOSE, BUN, 00:45:[address] [facility] CREATININE, CA) CBC WITH DIFF 2022-04-14 Lin [facility] 00:45:00 Medical Branch PROTHROMBIN TIME / INR 2022-04-14 Lin, [facility] 00:45:00 Medical Branch ACTIVATED PARTIAL THRMPLAS 2022-04-14 Lin [facility] JOE 00:45:00 Medical Branch HEPATITIS B SURFACE ANTIGEN 2022-04-14 MiguedorfmjDeven Di [facility] 00:45:00 Medical Branch LACTIC ACID WHOLE BLOOD 2022-04-14 Lin [facility] 00:45:00 Medical Branch LYME, LATE DISEASE (ABS, 2022-04-14 David Ojeda [facility] KISHAN W/REFLEX TO WB) 00:45:00 Medical Br anch MAGNESIUM 2022-04-13 [facility] 08:24[facility]00 [facility] BASIC METABOLIC PANEL (NA, 2022-04-13 [facility] K, CL, CO2, GLUCOSE, BUN, 08:24:00 [facility] CREATININE, CA) HIV 1/2 AG-AB WITH REFLEX 2022-04-13 David Ojeda [facility] 08:24:00 [facility] XR CHEST 1 VW 2022-04-12 [facility] 18:12:00 [facility] URINALYSIS 2022-04-12 [facility] 18:08:00 [facility] URINE CULTURE 2022-04-12 [facility] 18:08:00 [facility] PROTEIN CREAT RATIO URINE 2022-04-12 [facility] RANDOM 18:08:00 [facility] CREATINE KINASE 2022-04-12 [facility] xa 17:56:00 [facility] BASIC METABOLIC PANEL (NA, 2022-04-12 [facility] K, CL, CO2, GLUCOSE, BUN, 17:56:00 [facility] CREATININE, CA) CT HEAD WO CONTRAST 2022-04-12 [facility] [place] 11:06:02 Medical Branch FREE T4 2022-04-12 Lucian [facility] x[place] 06:11:00 Medical Branch CBC WITH DIFF 2022-04-12 Lucian [facility] [place] 06:11:00 Medical Branch HB ECG ROUTINE & RHYTHM 2022-04-12 Kee [facility] STRIP 05:23:39 Medical Branch RHEUMATOID FACTOR 2022-04-11 Lucian [facility] 22:41:00 Medical Branch C4 COMPLEMENT 2022-04-11 Kirill [facility] xas 22:41:00 Medical Branch SEDIMENTATION RATE 2022-04-11 [facility] 22:41:00 Medical Branch PROTHROMBIN TIME / INR 2022-04-11 [facility] 22:[facility] Medical Branch ACTIVATED PARTIAL THRMPLAS 2022-04-11 Lucian [facility] JOE 22:41:00 Medical Branch ANTI-NUCLEAR ANTIBODY SCREEN 2022-04-11 Lucian Abdulaziz [facility] 22:41:00 Medical Branch ANTI-NUCLEAR ANTIBODY TITER 2022-04-11 [facility] 22:41:00 Medical Branch ANTI-SSB(LA) 2022-04-11 Rusty [facility] x[place] 22:41:00 Medical Branch ANTI-DOUBLE STRANDED DNA 2022-04-11 [facility] 22:41:00 [facility] GALV ONLY - SYPHILIS IGG/IGM 2022-04-11 [facility] 22:41:00 Medical Branch ANTI-NUCLEAR 2022-04-11 [facility] ANTIBODY-PATHOLOGIST 22:41:00 Medical [facility] nc INTERPRETATION CORTISOL STIMULATION 60 MIN 2022-04-11 Lucian [facility] 17:46:00 Medical Branch CORTISOL STIMULATION 30 MIN 2022-04-11 Lucian [facility] 17:16:00 Medical [place] ADRENOCORTICOTROPIC HORMONE 2022-04-11 [facility] 16:30:00 [facility] C-REACTIVE PROTEIN 2022-04-11 [facility] 16:30:00 Medical Branch CORTISOL STIMULATION 0 MIN 2022-04-11 [facility] 16:30:00 Medical Branch XR CHEST 1 VW 2022-04-11 [facility] 14:46:47 Medical [place] TRANSTHORACIC ECHO (TTE) 2022-04-11 [facility] COMPLETE 13:59:00 Medical Branch HB ECG ROUTINE & RHYTHM 2022-04-11 [facility] STRIP 12:47:45 Medical Branch PHOSPHORUS 2022-04-11 [facility] [place] 09:48:00 Medical Branch MAGNESIUM 2022-04-11 [facility] [place] 09:48:00 Medical Branch CORTISOL AM 2022-04-11 [facility] 09:48:00 [facility] TROPONIN I 2022-04-11 [facility] [place] 09:48:00 [facility] HEPATIC FUNCTION PANEL 2022-04-11 [facility] ([id number]) (ALB,T.PRO,BILI 09:48:00 Medical Branch T,BU/BC,ALT,AST,ALK PHOS) BASIC METABOLIC PANEL (NA, 2022-04-11 [facility] K, CL, CO2, GLUCOSE, BUN, 09:48:00 [facility] CREATININE, CA) CBC WITH DIFF 2022-04-11 [facility] [place] 09:48:00 [facility] LACTIC ACID WHOLE BLOOD 2022-04-10 [facility] 19:46:00 Medical [place] HB ECG ROUTINE & RHYTHM 2022-04-10 [facility] STRIP 19:30:05 Medical Branch MRSA / MSSA SCREEN BY PCR, 2022-04-10 [facility] NARES 18:47:00 [facility] CT CHEST PULMONARY ANGIOGRAM 2022-04-10 Tatum Clark [facility] 17:17:12 Medical Branch COVID-19 (ID NOW RAPID 2022-04-10 Clark, [facility] TESTING) 16:37:00 [facility] LAB ONLY COVID 2022-04-10 [facility] ex INTERPRETATION 16:37:00 [facility] HB ECG ROUTINE & RHYTHM 2022-04-10 [facility] 13:55:45 [facility] PHOSPHORUS 2022-04-10 [facility] [place] 13:36:00 [facility] CREATINE KINASE 2022-04-10 [facility] 13:36:00 [facility] MAGNESIUM 2022-04-10 [facility] [place] 13:36:00 [facility] TROPONIN I 2022-04-10 [facility] [place] 13:36:00 [facility] FREE T4 2022-04-10 [facility] [place] 13:36:00 [facility] THYROID STIMULATING HORMONE 2022-04-10 [facility] 13:36[facility]00 [facility] COMP. METABOLIC PANEL 2022-04-10 [id number] 13:36:00 [facility] ETHANOL 2022-04-10 [facility] exas 13:36:00 [facility] CBC WITH DIFF 2022-04-10 [facility] ex 13:36:00 [facility] URINALYSIS 2022-04-10 [facility] 13:36:00 [facility] POCT TEST 2022-04-10 [facility] 13:36:00 [facility] N-TERMINAL PRO-BNP 2022-04-10 [facility] 13:36:00 [facility] URINE DRUG (IMMUNOASSAY) - 2022-04-10 [facility] COMPREHENSIVE DRUG SCREEN 13:36:00 Medica l [place] W/O REFLEX CONSENT/REFUSAL FOR 2022-04-10 Doctor Unassigned, [facility] DIAGNOSIS AND TREATMENT 13:23:47 [facility] [place] HOSPITAL ADMISSION 2022-04-10 Doctor Unassigned, [facility] 05:01:00 [place] [facility] ASSIGNMENT OF BENEFITS 2021-08-23 [facility] 06:40:03 [facility] URINALYSIS 2021-08-23 Marc Jhaveri Mariela [facility] xas 06:00:00 Medical Branch POCT TEST 2021-08-23 Marc Jhaveri Mariela [place] o f [place] 06:00:00 Medical Branch NOTICE OF PRIVACY PRACTICES 2021-08-23 Doctor Unassigned, U [facility] 05:07:28 [facility] CONSENT/REFUSAL FOR 2021-08-23 Doctor Unassigned, [facility] DIAGNOSIS AND TREATMENT 05:07:13 [facility] Encounters Start End Encounter Admission Attending Care Care Encounter Source Date/Time Date/Time Type Type Clinicians Facility Department ID 2022-11-14 2022-11-15 [facility] [id number] Univers 21:14:00 00:10:00 MUSHTAQ laguerre [facility] 2022-11-14 2022-11-15 Sanjana Thomas [facility] [id number] Univers 21:14:00 00:10:00 Mushtaq HARDIN 350.1.13.10 i ty [facility] [id number] [facility] [id number] [address] 2022-11-11 2022-11-11 Emergency X [facility] [id number] Univers 01:38:00 03:46:00 NATALIYA it y [facility] 2022-11-11 2022-11-11 Emergency [facility] [id number] Univers 01:38:00 03:46:00 Nataliya HARDIN 350.1.13.10 ity [facility] 4.2.7.2.686 [facility] [id number] [address] 2022-06-06 2022-06-06 Emergency [facility] [id number] Univers 08:22:00 10:05:00 [place] itlefty [facility] 2022-06-06 2022-06-06 Sanjana Garber [facility] [id number] Univers 08:22:00 10:05:00 Tennille S [place] 350.1.13.10 i ty of [place] [id number] [facility] 084 Branch 2022-06-01 2022-06-01 Patient Aleena Hankins [id number] Univers 00:00:00 00:00:00 Outreach E Z[place]OR[place] 350.1.13.10 i ty of [place]2.[place] [id number] [facility] 403 Branch 2022-05-03 2022-05-03 Patient ANDREA Bautista [id number] Univers 00:00:00 00:00:00 Outreach Rick W [place] 350.1.13.10 [place]y [place] [id number] [facility] 403 Branch 2022-04-28 2022-04-28 Patient Aleena Hankins [id number] Univers 00:00:00 00:00:00 Outreach E ZAMOR[place] 350.1.13.10 i ty [place] [id number] [facility] 403 Branch 2022-04-27 2022-04-27 Patient Aleena Hankins [id number] Univers 00:00:00 00:00:00 Outreach E ZAM[place] 350.1.13.10 i ty [place]2.[place] [id number] [facility] 403 Branch 2022-04-23 2022-04-23 Transition ANDREA Suárez [id number] Univers 00:00:00 00:00:00 of Care Dotty ZAMOR[place] 350.1.13.10 [place]y [place] [id number] [facility] 403 Branch 2022-04-19 2022-04-19 Transition ANDREA Suárez [id number] Univers 00:00:00 00:00:00 of Care Dotty [place] 350.1.13.10 [place] [id number] [facility] 403 Branch 2022-04-19 2022-04-19 Transition ANDREA Suárez [id number] Univers 00:00:00 00:00:00 of Care Dotty ZAMORA 350.1.13.10 ity of [place]2.[place] [id number] [facility] 403 Branch 2022-04-16 2022-04-16 Out[facility] [id number] Univers 13:52:31 23:59:00 [facility] 2022-04-10 2022-04-16 Hospital Tatum Clark 1.2.840. [id number] Univers 08:29:00 11:43:00 Encounter Abdulaziz Epstein 350.1.13.10 ity of [facility] 4.2 .7.2.686 Curly Collier [id number] [place] [id number] [place] 2022-04-10 2022-04-16 Inpatient U NAVNEET [facility] [id number] Univers 08:29:00 11:43:00 [facility] 2021-08-22 2021-08-23 Emergency X Marc JHAVERI [facility] ERT [id number] Univers 23:25:00 [facility] 2021-08-22 2021-08-23 Emergency Marc Jhaveri [facility] [id number] Univers 23:25:00 01:50:00 Mariela HARDIN 350.1.13.10 i ty of [place]2.7.2.686 [place] [id number] [facility] 084 Branch 2021-03-25 2021-03-25 Telephone Ervin [facility] [id number] Univers 00:00:00 00:00:00 [facility] 350.1.13.10 i ty of [place] 4.2.7.2.686 [place] as Randall?Blea [id number] [address] Medical Office Building 2021-03-23 2021-03-23 Telephone [facility] [id number] Univers 00:00:00 00:00:00 [facility] 350.1.13.10 it y of [place] 4.2.7.2.686 Kar Spangler [id number] [address] ([facility]) 2021-03-23 2021-03-23 Telephone Pcp, [facility] [id number] Univers 00:00:00 00:00:00 Patient Health 350.1.13.10 it y of Does Not [place].2.[place]?Blea [id number] [address] Medical Office [facility] 2021-03-21 2021-03-21 Outpatient R STEPHANIE, [facility] [id number] Univers 18:20:00 18:20:00 ATTENDING ity of [facility] 2021-03-20 2021-03-20 Outpatient R BRIANNA, [facility] [id number] Univers 09:00:00 09:00:00 WONDIFUL ity o f [facility] 2020-03-18 2020-03-18 Outpatient attema_lee MM[facility] MMG [id number] [place] 11:45:00 11:45:00 0818 [facility] 2019-11-27 2019-11-27 Telephone Pcp, [facility] [id number] 00:00:00 00:00:00 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 350.1.13.10 Does Not [facility] 4.2.7.2.686 Have A MATERNAL [id number] & CHILD [address] [place] [address] 2019-11-27 2019-11-27 Telephone Pcp, [facility] [id number] Univers 00:00:00 00:00:00 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 350.1.13.10 it y of Does Not [facility] 4.2.7.2.686 [place] MATERNAL [id number] Med ical & CHILD [address] [place] [address] Results Test Description Test Time Test Comments Results Result Comments Source POCT TEST 2022-11-15 02:50:00 Test Item Value Reference Range Interpretation Comme nts POCT PREG (test code = 1605) negative On board controls acceptable with C Line (test code = 3574) positiv e POCT PREG LOT # (test code = 3575) [id number] POCT PREG TEST DATE (test code = 3576) 05/06/2024 Lab Interpretation (test code = 30728-7) [id number] 06:47:00 Test Item Value Reference Range Interpretation Comments POCT PREG (test code = 1605) Negative On board controls acceptable with Present C Line (test code = 3574) POCT PREG LOT # (test code = 3575) [id number] POCT PREG TEST DATE (test 03/08/2024 code = 3576) Lab Interpretation (test code = Normal 58214-6) [facility]ATE DISEASE (ABS, KISHAN W/REFLEX TO WB) 2022-04-16 04:33:35 Test Item Value Reference Range Interpretation Comments LYME EIA (test code = See_Comment When the Borrelia 68377-8) burgdorferi Abs , Total by KISHAN result is negative, no further test ing is done.INTERPRETI VE INFORMATION: Kenny rrelia Burgdorferi Abs ,Total by KISHAN ?0.99 RICHI or Less: ...... Negative : Antibody to B. ? burgdorferi not detected. ?1.00 - 1.20 RICHI......... Eq uivocal: Repeat testing in ? 10-14 days may be helpful. ?1.21 RICHI or Greater: ... Positive: Probable presen ce of ? antibody to B. burgdorferi ? detected.Perfor med By: [employer] [place] [address] [id number] Director: Faustino viveros MD, PhD [Automated mess age] The system which ge nerated this result transmit leidy reference range : 0.00 - 1.20 RICHI. The r eference range was not u sed to interpret this result as normal/abnormal . [facility] (TPO) [id number] 16:21:03 Test Item Value Reference Interpretation Comments Range TPO Ab IgG (test See_Comment H [Automated code = 2393083842) message] The system which generated this result [...] Graves'disease. Lab Interpretation Abnormal (test code = 36582-2) [facility] HospitalCYCLIC CITRULLINATED [id number] 16:04:26 Test Item Value Reference Range Interpretation Comments CCP IgG (test code = 2.6 U 0-20 1935918148) SANFORD (test code = SANFORD) INTERPRETATION: UNITS: Negative <20Weak Positive 20-39Moderate Positive 40-59Strong Positive >=60 A positive result indicates the presence of CCP IgG antibodies and suggests the possibility of RA antibodies and suggests the possibility of SLE. A negative result indicates no CCP IgG antibodies or levels below the cut-off ofthe assay. Lab Interpretation (test Normal code = 87036-7) [facility] HospitalANTICARDIOLIPIN [id number] 15:58:16 Test Item Value Reference Interpretation Comments Range Anticardiolipin See_Comment [Automated Antibody IgG (test message] The code = 1752803430) system [facility] generated this result transmitted reference range: 0.0 - 10.0 GPL. The reference range was not used to interpret this result as normal/abnormal . Anticardiolipin See_Comment [Automated Antibody IgM (test message] The code = 8261117530) system [facility] generated this result transmitted reference range: 0.0 - 10.0 MPL. The reference range was not used to interpret this result as normal/abnormal . Anticardiolipin See_Comment [Automated Antibody IgA (test message] The code = 7719829170) system wh ich generated this result transmitted [...] 2210-4 Lab Interpretation Normal (test code = 40477-7) [facility] HospitalANTI-B2 GLYCOPROTEIN I [id number] 15:53:57 Test Item Value Reference Interpretation Comments Range Anti-B2 See_Comment [Automated Glycoprotein 1 IgG message] The (test code = system which 9171005691) generated this result transmitted reference range : 0.0 - 20.0 SGU. The reference range was not used to interpret this result as normal/abnormal . Anti-B2 See_Comment [Automated Glycoprotein 1 IgM message] The (test code = system which 3137636880) generated this result transmitted reference range : 0.0 - 20.0 SMU. The reference range was not used to interpret this result as normal/abnormal . Anti-B2 See_Comment [Automated Glycoprotein 1 IgA message] The (test code = system which 1943351384) generated this result transmitted reference range : [...] losses and/or thrombocytopenia. TEST PERFORMED AT:[facility] [id number] [place] [address], [address] [place] [address] Lab Interpretation Normal (test code = 50165-1) [facility] HospitalHEPATITIS B SURFACE [id number] 15:44:25 Test Item Value Reference Range Interpretation Comments HBsAB (test code = Indeterminate 5112842310) HBsAb mIU/mL Semi-Quantitative (test code = 7948978612) SANFORD (test code = Unable to determine if SANFORD) antibody to Hepatitis B Surface Antigen is present at levels consistent with immunity. ?Patient's immune status should be assessed with other clinical information and/or retesting in 4-6 weeks as clinically indicated. ?If any questions, please contact Clinical Chemistry Director collection card clerk at .Interpretati on: ?Hepatitis B Surface Antibody ? Negative - Patient is considered to be not immune to infection with HBV. ? ? Positive - Anti-HBs detected at greater than or equal to 12 mIU/mL. ?Patient is considered to be immune to infection with HBV. ? [facility] HospitalHBC ANTIBODY (IGM & IGG)2022-04-15 11:48:38 Test Item Value Reference Range Interpretation Comments HBC (test code = 3944645083) Negative HBC Semi-Quantitative (test code = 6784630194) [facility] HospitalHCV [id number] 11:48:37 Test Item Value Reference Range Interpretation Comments HCV Ab (test code = 17490-3) Negative HCV Semi-Quantitative (test code = 83588-8) [facility] HospitalHEPATIC FUNCTION PANEL (48179) (ALB,T.PRO,BILI T,BU/BC,ALT,AST,ALK PHOS)2022-04-15 11:06:34 Test Item Value Reference Range Interpretation Comments TOTAL BILI (test code = 5557941921) 0.2 mg/dL 0.1-1.1 BILI UNCON (test code = 9488892034) 0.1 mg/dL 0.1-1.1 BILI CONJ (test code = 6691090213) 0.0 mg/dL 0-0.3 T PROTEIN (test code = 2013001374) 5.0 g/dL 6.3-8.2 L ALBUMIN (test code = 0327471336) 2.8 g/dL 3.5-5 L ALK PHOS (test code = 2125641290) 54 U/L 34-122 ALTv (test code = 1742-6) 12 U/L 5-35 AST(SGOT) (test code = 5285860693) 18 U/L 13-40 Lab Interpretation (test code = Abnormal 89428-1) [facility] HospitalMAGNESIUM2022 11:06:34 Test Item Value Reference Range Interpretation Comments MAGNESIUM (test code = 1346690334) 2.1 mg/dL 1.7-2.4 Lab Interpretation (test code = Normal 31503-4) [facility] (NA, K, CL, CO2, GLUCOSE, BUN, CREATININE, CA)2022-04-15 11:06:34 Test Item Value Reference Range Interpretation Comments NA (test code = 139 mmol/L 135-145 0709250027) K (test code = 4.2 mmol/L 3.5-5 9550939535) CL (test code = 112 mmol/L 98-108 H 5780912862) CO2 TOTAL (test code = 26 mmol/L 23-31 0176798273) AGAP (test code = 2-16 L 1360527063) BUN (test code = 16 mg/dL 7-23 8938507254) GLUCOSE (test code = 84 mg/dL 70-110 6810255584) CREATININE (test code = 0.75 mg/dL 0.5-1.04 6034632282) CALCIUM (test code = 7.9 mg/dL 8.6-10.6 L 3659843150) eGFR (test code = mL/min/1.73m2 4524280278) SANFORD (test code = SANFORD) Association of [...] tests). Lab Interpretation Abnormal (test code = 99531-9) [facility] WITH [id number] 10:25:33 Test Item Value Reference Range Interpretation Comments WBC (test code = See_Comment [Automated 3757-2) message] The sy stem which generated this result transmitted reference range : 4.30 - 11.10 10*3/?L. The reference range was not used to interpret this result as normal/abnormal . RBC (test code = See_Comment L [Automated 709-8) message] The sy stem which generated this [...] RDW-SD (test code = 41.0 fL 39-49.9 46750-7) RDW-CV (test code = 12.6 % 12-15.5 788-0) PLT (test code = See_Comment L [Automated 777-3) message] The sy stem which generated this result transmitted reference range : 166 - 358 10*3/ ?L. The reference r earnest was not used to interpret this result as normal/abnormal . MPV (test code = 10.6 fL 9.5-12.9 24401-2) NRBC/100 WBC (test See_Comment [Automat ed code = 8405344338) message] The system which generated this result transmitted reference range : 0.0 - 10.0 /100 WBCs. The refer ence range was not u sed to interpret th is result as normal/abnormal . NRBC x10^3 (test code See_Comment [Auto mated = 0680700339) message] The s ystem which generated this result transmitted reference range : 10*3/?L. The reference range was not used to interpret this result as normal/abnormal . GRAN MAT (NEUT) % 58.3 % (test code = 770-8) IMM GRAN % (test code 0.30 % = 7085015507) LYMPH % (test code = 33.2 % 736-9) MONO % (test code = 5.5 % 5905-5) EOS % (test code = 2.5 % 713-8) BASO % (test code = 0.2 % 706-2) GRAN MAT x10^3(ANC) 3.49 10*3/uL 1.88-7.09 (test code = 0727325065) IMM GRAN x10^3 (test 0-0.06 code = 7686855749) LYMPH x10^3 (test code 1.99 10*3/uL 1.32-3.29 = 731-0) MONO x10^3 (test code 0.33 10*3/uL 0.33-0.92 = 742-7) EOS x10^3 (test code = 0.15 10*3/uL 0.03-0.39 711-2) BASO x10^3 (test code 0.01-0.07 = 704-7) Lab Interpretation Abnormal (test code = 67724-4) [facility] HospitalProthrombin Time / [id number] 10:25:12 Test Item Value Reference Range Interpretation Comments PROTIME PATIENT (test See_Comment [Auto mated message] code = 5964-2) The system [employer] generated this result transmitted ref erence range: 10.1 - 1 2.6 Seconds. The re ference range was not u sed to interpret this result as normal/abnor mal. INR (test code = 6301-6) Nor mal INR <1.1; Warfarin Therap eutic range 2.0 to 3. 0 or 2.5 to 3.5, dep ending upon the indica tions. Lab Interpretation (test Normal code = 70053-0) [facility]HEPATITIS B SURFACE [id number] 21:24:29 Test Item Value Reference Range Interpretation Comments HBsAg Semi-Quantitative (test code = Negative Negative 5195-3) [facility]BASI METABOLIC PANEL (NA, K, CL, CO2, GLUCOSE, BUN, CREATININE, CA)2022-04-14 01:26:24 Test Item Value Reference Range Interpretation Comments NA (test code = 141 mmol/L 135-145 0277479370) K (test code = 3.7 mmol/L 3.5-5 1670470703) CL (test code = 110 mmol/L 98-108 H 4825370204) CO2 TOTAL (test code = 27 mmol/L 23-31 5070686553) AGAP (test code = 2-16 5759774784) BUN (test code = 16 mg/dL 7-23 0644463351) GLUCOSE (test code = 101 mg/dL 70-110 8066272065) CREATININE (test code = 0.83 mg/dL 0.5-1.04 9511624759) CALCIUM (test code = 8.3 mg/dL 8.6-10.6 L 1995017336) eGFR (test code = mL/min/1.73m2 9294222373) SANFORD (test code = SANFORD) Association of [...] tests). Lab Interpretation Abnormal (test code = 45367-2) [facility] HospitalLactic Acid Whole [id number] 01:17:52 Test Item Value Reference Range Interpretation Comments LACTIC ACID (test code = 1.01 mmol/L 0.5-2.2 4530854241) Lab Interpretation (test code = Normal 83771-0) [facility] HospitalaPTT2022-09-14 01:09:01 Test Item Value Reference Range Interpretation Comments APTT Patient (test code = See_Comment [ Automated message] 3173-2) The system [employer] generated this result transmitted ref erence range: 26 - 36 Seconds. The re ference range was not u sed to interpret this result as normal/abnor mal. Lab Interpretation (test Normal code = 30079-3) [facility] HospitalProthrombin Time / [id number] 01:09:01 Test Item Value Reference Range Interpretation Comments PROTIME PATIENT (test See_Comment [Auto mated message] code = 5964-2) The system [employer] generated this result transmitted ref erence range: 10.1 - 1 2.6 Seconds. The re ference range was not u sed to interpret this result as normal/abnor mal. INR (test code = 6301-6) Nor mal INR <1.1; Warfarin Therap eutic range 2.0 to 3. 0 or 2.5 to 3.5, dep ending upon the indica tions. Lab Interpretation (test Normal code = 18214-1) [facility] WITH [id number] 01:03:39 Test Item Value Reference Range Interpretation Comments WBC (test code = See_Comment [Automated message] 6690-2) The system [employer] generated this result transmitted ref erence range: 4.30 - 1 1.10 10*3/?L. The re ference range was not u sed to interpret this result as normal/abnor mal. RBC (test code = See_Comment [Automated message] 509-8) The system [employer] generated this result transmitted ref erence range: [...] RDW-SD (test code 40.8 fL 39-49.9 = 05752-6) RDW-CV (test code 12.3 % 12-15.5 = 788-0) PLT (test code = See_Comment [Automated message] 967-3) The system [employer] generated this result transmitted ref erence range: 166 - 35 8 10*3/?L. The re ference range was not u sed to interpret this result as normal/abnor mal. MPV (test code = 10.8 fL 9.5-12.9 03032-8) NRBC/100 WBC (test See_Comment [Automat ed message] code = 4612433783) The syste m which generated this result transmitted ref erence range: 0.0 - 10 .0 /100 WBCs. The refer ence range was not u sed to interpret this result as normal/abnor mal. NRBC x10^3 (test See_Comment [Automated message] code = 1893050179) The syste m which generated this result transmitted ref erence range: 10*3/?L. The reference range was not used to interpr et this result as normal/abnormal . GRAN MAT (NEUT) % 56.8 % (test code = 770-8) IMM GRAN % (test 0.10 % code = 2836353526) LYMPH % (test code 37.1 % = 736-9) MONO % (test code 4.3 % = 5905-5) EOS % (test code = 1.2 % 713-8) BASO % (test code 0.5 % = 706-2) GRAN MAT 4.67 10*3/uL 1.88-7.09 x10^3(ANC) (test code = 5095352437) IMM GRAN x10^3 0-0.06 (test code = 9530535395) LYMPH x10^3 (test 3.05 10*3/uL 1.32-3.29 code = 731-0) MONO x10^3 (test 0.35 10*3/uL 0.33-0.92 code = 742-7) EOS x10^3 (test 0.10 10*3/uL 0.03-0.39 code = 711-2) BASO x10^3 (test 0.04 10*3/uL 0.01-0.07 code = 704-7) [facility] HospitalTransthoracic echo (TTE)2022-04-11 16:43:30 Test Item Value Reference Range Interpretation Comments Height (test code = in 0385953463) Weight (test code = lbs 4499019344) Systolic BP (test code = mmHg 1431539381) Diastolic BP (test code mmHg = 3173663714) Heart Rate (test code = bpm 1999906610) BSA (test code = 1.60 m2 7529891069) Ao root annulus (test 2.8 cm code = 6439634939) Ao root diam (test code 2.80 cm = 0735599978) Aortic root (test code = 2.8 cm 8627917083) LVOT diameter (test code 1.80 cm = 1890717285) LVOT area (test code = 2.60 cm2 9633159716) LVIDD (test code = 4.50 cm 1437046577) Left Ventricular End 91.2 mL Diastolic Volume by Teichholz Method (test code = 5528081) IVS (test code = 0.71 cm 8695986214) Interventricular Septum 0.71 cm Diastolic Thickness by 2D (test code = 7128934) LVPWD (test code = 0.71 cm 9460905292) PW (test code = 0.71 cm 0.6-1.1 8187121441) EF(Teich) (test code = 61.00 % 5924480695) LVIDS (test code = 3.00 cm 7220084828) Left Ventricular End 35.6 mL Systolic Volume by Teichholz Method (test code = 4380605) FS (test code = 33 % 2158854365) EF - 2D (test code = 61.00 % 97260618) LA size (test code = 2.9 cm 9917392428) Pulmonic Regurgitant End 161.8 cm/s Max Velocity (test code = 8517371466) LAV(MOD-sp4) (test code 29.10 mL = 6850820149) MV stenosis pressure 1/2 65.3 ms time (test code = 3097241702) E wave decelartion time 0.23 s (test code = 2988762351) MV Peak E Rafael (test code 121.5 cm/s = 2768542682) MV Peak A Rafael (test code 43.8 cm/s = 3895993692) E/A ratio (test code = ratio 4575852114) MR max PG (test code = 65.00 mm[Hg] 8147530797) MR max rafael (test code = 401.70 cm/s 0841448972) Mr max rafael (test code = 401.7 m/s 6391498427) MV Prop V (test code = 44.60 cm/s 5674272778) MV E/e' septal (test 19.3 cm/s code = 4313254722) Tapse (test code = 2.13 cm 4659686259) LVOT stroke volume (test 72.90 cm3 code = 9634595312) LVOT peak rafael (test code 144.5 cm/s = 8456583450) LVOT mn grad (test code mmHg = 2823987637) AV LVOT peak gradient mmHg (test code = 8016685080) LVOT peak VTI (test code 28.5 cm = 3574612860) LV V1 mean (test code = 104.40 cm/s 4160110836) Aortic valve mean 112.8 cm/s velocity (test code = 6734727043) Ao peak rafael (test code = 161.3 cm/s 9645660251) Ao VTI (test code = 34.5 cm 7307242757) AV area by cont VTI 2.1 cm2 (test code = 6413700045) AV area peak rafael (test 2.3 cm2 code = 3979356092) Ao max PG (test code = 10.40 mm[Hg] 7902995513) AV peak gradient (test mmHg code = 1989609353) AV valve area (test code 2.11 cm2 = 5133460011) AV mean gradient (test mmHg code = 9905891168) Radiology Study observation (narrative) (test code = 60575-4) SANFORD (test code = SANFORD) ?Left?Ventricle: Left [...] 2D, color flow Doppler and spectral Doppler. [facility] [id number] 13:36:00 Test Item Value Reference Range Interpretation Comments POCT PREG (test code = 1605) Negative On board controls acceptable with Present C Line (test code = 3574) POCT PREG LOT # (test code = 3575) [id number] POCT PREG TEST DATE (test 06/30/2023 code = 3576) Lab Interpretation (test code = Normal 64645-9) [facility] [id number] 06:00:00 Test Item Value Reference Range Interpretation Comments POCT PREG (test code = 1605) negative On board controls acceptable with positive C Line (test code = 3574) POCT PREG LOT # (test code = 3575) [id number] POCT PREG TEST DATE (test 07/31/2022 code = 3576) Lab Interpretation (test code = Normal 36038-3) [facility]
[2023-02-23 12:59] LABS: Specific Gravity 1.023 (1.005-1.030)
[2023-02-23] MEDS ORDERED: NA CHLORIDE 0.9% 1,000 ML ONE (13:08)
[2023-02-23 13:17] LABS: Specific Gravity 1.023 (1.005-1.030); Urine Bacteria >50 /HPF (<20); Urine Bilirubin NEGATIVE (Negative); Urine Blood Trace (Negative); Urine Clarity Extremely Turbid (Clear); Urine Color Yellow (Yellow); Urine Glucose NEGATIVE (Negative); Urine Mucus Slight /HPF (None Seen); Urine Protein TRACE (Negative); Urine Urobilinogen Normal (Normal); Urine pH 7.5 (5.0-7.0)
[2023-02-23] MEDS ORDERED: MORPHINE 4 MG/ML SYR ONE ×2 (13:18→15:04)
[2023-02-23] MEDS ORDERED: ONDANSETRON 4 MG/2 ML VIAL ONE (13:18)
[2023-02-23 13:21] LABS: Absolute Lymphocytes (CBC) 1.7 K/uL (0.7-4.9); Hematocrit 39.2 % (36.0-45.0); Lymphocytes % 29.1 % (15.3-44.8); MCV 90.6 fL (80-100); MPV 9.1 fL (7.6-11.3); RBC Red Blood Cell Count 4.33 M/uL (3.86-4.86)
--- NOTE | 2023-02-23 13:31 | RAD REPORT ---
EXAM DESCRIPTION: CT - Abdomen Pelvis Wo Contrast - 02/23/2023 1:18 pm CLINICAL HISTORY: Abdominal pain. ABD PAIN COMPARISON: Abdomen Pelvis W Contrast dated 11/21/2022 TECHNIQUE: CT imaging of the abdomen and pelvis was performed without contrast. Solid organ, bowel a nd vascular assessment is limited due to lack of IV and oral contrast. All CT scans are performed using dose optimization technique as appropriate and may include automated exposure control or mA/KV adjustment according to patient size. FINDINGS: The lower lung abdul are clear. The liver, spleen, pancreas, adrenal glands and kidneys are within normal limits for a limited non-co ntrast examination. No bowel obstruction, free air, free fluid or abscess. There is a significant amount of stool retaine d throughout the colon. The appendix is normal. The osseous structures are within normal limits. IMPRESSION: No acute intra-abdominal or pelvic findings. Significant fecal retention throughout the colon. A limited non-contrast examination was performed as detailed.
[2023-02-23 13:35] LABS: Albumin 4.1 g/dL (3.4-5.0); Bilirubin Total 0.5 mg/dL (0.2-1.0); Potassium 4.2 mEq/L (3.5-5.1); Protein, Total 7.4 g/dL (6.4-8.2)
--- NOTE | 2023-02-23 13:47 | EDPHYS ---
Physician Documentation [facility] Name: Marcelina Dodson Age: 32 yrs Sex: Female : 1990 Arrival Date: 02/23/2023 Time: 12:06 Bed 12 Private MD: ED Physician Calin Ryan HPI: 02/23 13:10 This 32 yrs old Female presents to ER via Ambulatory with complaints of Abdominal Pain, sp3 Back Pain. 13:10 32-year-old female with a history of kidney stones and multiple UTIs, lupus presents to [facility] the ED with chief complaint dysuria, urinary frequency, foul-smelling urine, low back pain and anterior abdominal lower pain over the bladder. Patient was seen at [facility] approximately 2 weeks ago where she was told she had "an intestinal infection and a UTI" for which she was on ciprofloxacin. She feels that after that course of antibiotics her symptoms never really went away and so now she is presenting here for now worsening progression. She also endorses fever of 104 yesterday. She denies any headache, URI symptoms including cough, congestion, rhinorrhea, sore throat, neck pain, chest pain, shortness of breath, diarrhea, upper back pain, rash, known sick contacts, travel history, or any other signs or symptoms at this time.. Historical: - Allergies: 12:22 PENICILLINS; aa5 12:22 Tramadol HCl; aa5 - PMHx: 12:22 UTI, Kidney infections/stones; Lupus erythematosus; POTS; aa5 - Immunization history:: Adult Immunizations unknown. - Social history:: Smoking status: Reported history of juuling and/or vaping. ROS: 13:13 Eyes: Negative for injury, pain, redness, and discharge, ENT: Negative for injury, sp3 pain, and discharge, Neck: Negative for injury, pain, and swelling, Cardiovascular: Negative for chest pain, palpitations, and edema, Respiratory: Negative for shortness of breath, cough, wheezing, and pleuritic chest pain, MS/Extremity: Negative for injury and deformity, Skin: Negative for injury, rash, and discoloration, Neuro: Negative for headache, weakness, numbness, tingling, and seizure, Psych: Negative for depression, anxiety, suicide ideation, homicidal ideation, and hallucinations, Allergy/Immunology: Negative for hives, rash, and allergies, Endocrine: Negative for neck swelling, polydipsia, polyuria, polyphagia, and marked weight changes. 13:13 All other systems are negative. Exam: 13:13 Constitutional: This is a well developed, well nourished patient who is awake, alert, sp3 and in no acute distress. Head/Face: Normocephalic, atraumatic. Eyes: Pupils equal round and reactive to light, extra-ocular motions intact. Lids and lashes normal. Conjunctiva and sclera are non-icteric and not injected. Cornea within normal limits. Periorbital areas with no swelling, redness, or edema. ENT: Nares patent. No nasal discharge, no septal abnormalities noted. External auditory canals are clear. Oropharynx with no redness, swelling, or masses, exudates, or evidence of obstruction, uvula midline. Mucous membranes moist. Neck: Trachea midline, no thyromegaly or masses palpated, and no cervical lymphadenopathy. Supple, full range of motion without nuchal rigidity, or vertebral point tenderness. No Meningismus. Chest/axilla: Normal chest wall appearance and motion. Nontender with no deformity. No lesions are appreciated. Cardiovascular: Regular rate and rhythm with a normal S1 and S2. No gallops, murmurs, or rubs. Normal PMI, no JVD. No pulse deficits. Respiratory: Lungs have equal breath sounds bilaterally, clear to auscultation and percussion. No rales, rhonchi or wheezes noted. No increased work of breathing, no retractions or nasal flaring. Back: No spinal tenderness. No costovertebral tenderness. Full range of motion. Skin: Warm, dry with normal turgor. Normal color with no rashes, no lesions, and no evidence of cellulitis. MS/ Extremity: Pulses equal, no cyanosis. Neurovascular intact. Full, normal range of motion. Neuro: Awake and alert, GCS 15, oriented to person, place, time, and situation. Cranial nerves II-XII grossly intact. Motor strength 5/5 in all extremities. Sensory grossly intact. Cerebellar exam normal. Normal gait. Psych: Awake, alert, with orientation to person, place and time. Behavior, mood, and affect are within normal limits. 13:13 Abdomen/GI: Patient with abdominal pain over the bladder without lateralization. No peritoneal signs at this time.. Vital Signs: 12:20 BP 124 / 74; Pulse 76; Resp 18 S; Temp 98.4(TE); Pulse Ox 100% on R/A; Weight 65.77 kg aa5 (R); Height 5 ft. 4 in. (R); 15:03 BP 103 / 61; Pulse 53; Resp 18; Pulse Ox 100% ; cm10 12:20 Body Mass Index 24.89 (65.77 kg, 162.56 cm) aa5 MDM: 12:36 Patient medically screened. sp3 13:13 Data reviewed: vital signs, nurses notes, lab test result(s), radiologic studies. ED sp3 course: 32-year-old female with UTI symptoms. Differential diagnosis includes UTI, pyelonephritis, kidney stone, sepsis, among others. Clinically I am not highly suspicious for intestinal pathology including obstruction, ileus, aortic pathology including dissection or aneurysm, [employer] symptoms including PID. Work-up will include laboratory values, UA, CT scan of the abdomen pelvis without contrast on the CT is a kidney stone protocol. Morphine and Zofran as needed for pain control. Patient is n.p.o. Final disposition pending work-up and patient course.. 13:45 ED course: CT scan demonstrates no pyelonephritis or kidney stone. Laboratory values sp3 are normal with exception of urinalysis which demonstrates significant UTI with greater than 50 WBCs. Patient has failed outpatient therapy of fluoroquinolones and is allergic to penicillin. We will administer cefepime for generation cephalosporin IV and discharge her on nitrofurantoin and Bactrim combination therapy.. 02/23 12:37 Order name: CBC with Diff; Complete Time: 13:38 sp3 02/23 12:37 Order name: CMP; Complete Time: 13:38 sp3 02/23 12:37 Order name: Lipase; Complete Time: 13:38 sp3 02/23 12:37 Order name: Test, Urine; Complete Time: 13:38 sp3 02/23 12:37 Order name: Urinalysis w/ reflexes; Complete Time: 13:38 sp3 02/23 13:20 Order name: Urine Culture EDNV 02/23 12:37 Order name: CT Abd/Pelvis - Without Contrast; Complete Time: 13:38 sp3 02/23 12:37 Order name: IV Saline Lock; Complete Time: 13:13 sp3 02/23 12:37 Order name: Labs collected and sent; Complete Time: 13:13 sp3 Administered Medications: 13:14 Drug: NS 0.9% IV 1000 ml Route: IV; Rate: 1 bolus; Site: left antecubital; cm10 13:14 Drug: morphine IVP or IV 4 mg Route: IVP; Infused Over: 4 mins; Site: left antecubital; cm10 13:39 Follow up: Response: No adverse reaction; Pain is unchanged, physician notified cm10 13:14 Drug: Ondansetron IVP 4 mg Route: IVP; Site: left antecubital; cm10 13:39 Follow up: Response: No adverse reaction cm10 13:52 Drug: NS 0.9% IV 100 ml, Cefepime IVPB 2 grams 2 grams Route: IVPB; Rate: 200 ml/hr; cm10 Infused Over: 30 mins; Site: left antecubital; 14:53 Follow up: Response: No adverse reaction; IV Status: Completed infusion; IV Intake: cm10 100ml 15:03 Drug: morphine IVP or IV 2 mg {Note: 2mg given.} Route: IVP; Infused Over: 4 mins; cm10 Site: left antecubital; 15:03 Follow up: Response: No adverse reaction cm10 Disposition Summary: 02/23/23 13:46 Discharge Ordered Location: Home sp3 Condition: Stable sp3 Diagnosis - Urinary tract infection, failed outpatient therapy sp3 Followup: sp3 - With: Private Physician - When: Upon discharge from the Emergency Department - Reason: Continuance of care Discharge Instructions: - Discharge Summary Sheet sp3 - Urinary Tract Infection, Adult sp3 Forms: - Medication Reconciliation Form sp3 - Thank You Letter sp3 - Antibiotic Education sp3 - Prescription Opioid Use sp3 - Patient Portal Instructions sp3 Prescriptions: - Macrobid 100 mg Oral Capsule - take 1 capsule by ORAL route every 12 hours for 14 days; 28 capsule; Refills: sp3 0, Product Selection Permitted - Bactrim DS 800-160 mg Oral Tablet - take 1 tablet by ORAL route every 12 hours for 10 days; 20 tablet; Refills: 0, sp3 Product Selection Permitted Signatures: Dispatcher [employer] Juana Olea RN RN aa5 Calin Ryan MD MD sp3 Mario, Cathleen, RN RN cm10 Corrections: (The following items were deleted from the chart) 12:22 Allergies: Ibuprofen; aa5 aa5
--- NOTE | 2023-02-23 13:47 | ER ---
Nurse's Notes [facility] Name: Marcelina Dodson Age: 32 yrs Sex: Female : 1990 Arrival Date: 02/23/2023 Time: 12:06 Bed 12 Private MD: Diagnosis: Urinary tract infection, failed outpatient therapy Presentation: 02/23 12:20 Chief complaint: Patient states: lower back pain and RLQ pain, reports foul smelling aa5 urine. Reports UTI 1 month ago. Reports fever last night. Coronavirus screen: fever. Ebola Screen: Patient denies travel to an Ebola-affected area in the 21 days before illness onset. Initial Sepsis Screen: Does the patient meet any 2 criteria? No. Patient's initial sepsis screen is negative. Does the patient have a suspected source of infection? Yes: Dysuria/Frequency/Urgency/UTI. Risk Assessment: Do you want to hurt yourself or someone else? Patient reports no desire to harm self or others. Onset of symptoms was January 2023. 12:20 Method Of Arrival: Ambulatory aa5 12:20 Acuity: PEPE 3 aa5 Historical: - Allergies: 12:22 PENICILLINS; aa5 12:22 Tramadol HCl; aa5 - PMHx: 12:22 UTI, Kidney infections/stones; Lupus erythematosus; POTS; aa5 - Immunization history:: Adult Immunizations unknown. - Social history:: Smoking status: Reported history of juuling and/or vaping. Screenin:15 [facility] ED Fall Risk Assessment (Adult) History of falling in the last 3 months, cm10 including since admission No falls in past 3 months (0 pts) Confusion or Disorientation No (0 pts) Intoxicated or Sedated No (0 pts) Impaired Gait No (0 pts) Mobility Assist Device Used No (0 pt) Altered Elimination No (0 pt) Score/Fall Risk Level 0 - 2 = Low Risk Oriented to surroundings, Maintained a safe environment, Provided non-skid footwear. Abuse screen: Denies threats or abuse. Denies injuries from another. Nutritional screening: No deficits noted. Tuberculosis screening: No symptoms or risk factors identified. Assessment: 13:14 General: Appears in no apparent distress. comfortable, Behavior is calm, cooperative. cm10 Pain: Complains of pain in back and abdomen. Neuro: No deficits noted. Level of Consciousness is awake, alert, obeys commands, Oriented to person, place, time, situation. Respiratory: No deficits noted. Airway is patent Respiratory effort is even, unlabored, Respiratory pattern is regular, symmetrical. GI: Bowel sounds Abd is soft. : Reports burning with urination. 13:53 Reassessment: Patient and/or family updated on plan of care and expected duration. Pain cm10 level reassessed. Patient is alert, oriented x 3, equal unlabored respirations, skin warm/dry/pink. Pt awaiting completion of IV ABX for discharge. Vital Signs: 12:20 BP 124 / 74; Pulse 76; Resp 18 S; Temp 98.4(TE); Pulse Ox 100% on R/A; Weight 65.77 kg aa5 (R); Height 5 ft. 4 in. (R); 15:03 BP 103 / 61; Pulse 53; Resp 18; Pulse Ox 100% ; cm10 12:20 Body Mass Index 24.89 (65.77 kg, 162.56 cm) aa5 ED Course: 12:18 Patient arrived in ED. am2 12:19 Calin Ryan MD is Attending Physician. sp3 12:20 Arm band placed on. aa5 12:22 Triage completed. aa5 12:40 Radiology exam delayed due to test not completed at this time. sj 12:50 Urinalysis w/ reflexes Sent. ll1 12:51 Test, Urine Sent. ll1 12:55 Cathleen Martin, RHONA is Primary Nurse. cm10 13:13 CBC with Diff Sent. cm10 13:13 CMP Sent. cm10 13:14 Lipase Sent. cm10 13:15 Patient has correct armband on for positive identification. Bed in low position. Call cm10 light in reach. Side rails up X2. Provided Education on: N/A. 13:15 No provider procedures requiring assistance completed. Inserted saline lock: 20 gauge cm10 in left antecubital area, using aseptic technique. Blood collected. 13:19 CT Abd/Pelvis - Without Contrast In Process Unspecified. EDMS 15:04 IV discontinued, intact, bleeding controlled, No redness/swelling at site. Pressure cm10 dressing applied. Administered Medications: 13:14 Drug: NS 0.9% IV 1000 ml Route: IV; Rate: 1 bolus; Site: left antecubital; cm10 13:14 Drug: morphine IVP or IV 4 mg Route: IVP; Infused Over: 4 mins; Site: left antecubital; cm10 13:39 Follow up: Response: No adverse reaction; Pain is unchanged, physician notified cm10 13:14 Drug: Ondansetron IVP 4 mg Route: IVP; Site: left antecubital; cm10 13:39 Follow up: Response: No adverse reaction cm10 13:52 Drug: NS 0.9% IV 100 ml, Cefepime IVPB 2 grams 2 grams Route: IVPB; Rate: 200 ml/hr; cm10 Infused Over: 30 mins; Site: left antecubital; 14:53 Follow up: Response: No adverse reaction; IV Status: Completed infusion; IV Intake: cm10 100ml 15:03 Drug: morphine IVP or IV 2 mg {Note: 2mg given.} Route: IVP; Infused Over: 4 mins; cm10 Site: left antecubital; 15:03 Follow up: Response: No adverse reaction cm10 Medication: 13:15 VIS not applicable for this client. cm10 Intake: 14:53 IV: 100ml; Total: 100ml. cm10 Outcome: 13:46 Discharge ordered by . sp3 15:04 Discharged to home ambulatory, with family. cm10 15:04 Condition: good 15:04 Discharge instructions given to patient, Instructed on discharge instructions, follow up and referral plans. medication usage, Demonstrated understanding of instructions, follow-up care, medications, Prescriptions given X 2. 15:04 Patient left the ED. cm10 Addendum: 02/27/2023 07:08 Addendum: Culture Results: Positive urine culture. No further action required. Bacteria e b sensitive to prescribed antibiotic. Signatures: Dispatcher [employer] Imelda Moses Audri RN RN aa5 Karla Allan Elizabeth eb Lewis, Lynsay RN RN ll1 Calin Ryan MD MD sp3 Cathleen Martin RN RN cm10 Corrections: (The following items were deleted from the chart) 02/23 12:22 12:22 Allergies: Ibuprofen; aa5 aa5 12:23 12:20 Chief complaint: Patient states: lower back pain and RLQ pain, reports foul aa5 smelling urine. Reports UTI 1 month ago. aa5 12:23 12:20 Coronavirus screen: At this time, the client does not indicate any symptoms aa5 associated with coronavirus-19. aa5
[2023-02-23] MEDS ORDERED: NA CHLORIDE 0.9% 100 ML ONE (13:56)
[2023-02-23] MEDS ORDERED: CEFEPIME 2 GM VIAL ONE (13:56)
[2023-02-23 15:11] VITALS: TEMP 98.4; O2SAT 100
[2023-02-23 15:12] VITALS: BP 103/61
== END 2023-02-23 15:04 | disposition home or self-care (01) ==
LOC: ER 12:06
DX: N39.0 Urinary tract infection, site not specified (principal); Z91.199 Patient's noncompliance with other medical treatment and regimen due to unspecified reason
CPT/HCPCS: 36415; 74176; 80053; 81001; 81025; 83690; 85025; 87077; 87086; 87088; 87186; 96365; 96375; 99284; J0692; J2405; J7030

== ENCOUNTER → 2023-07-28 | Emergency (ER) | payer SELFPAY ==
[~2023-07-28] MED LIST: ACETAMINOPHEN 500 MG TAB ONE; KETOROLAC 30 MG/ML INJ ONE; METOCLOPRAMIDE 10 MG/2mL INJ ONE; NA CHLORIDE 0.9% 1,000 ML ONE
--- OUTSIDE RECORDS SUMMARY | 2023-07-28 12:15 | XMS REPORT | Continuity of Care Document ---
Author Name Unknown Address [address] [facility] [address] [place] [address] [facility] Address [address] [facility]. [address] [place] [address] Care Team Providers Care [place] Attendant Name Role Phone ELIE NASH Primary Care Physician Unavailab MUSHTAQ Hou Attending Clinician Unavailable Mushtaq Thomas MD Attending Clinician [phone] NATALIYA MOREL Attending Clinician UnavailNataliya Angeles Attending Clinician + [phone] TENNILLE GARBER Attending Clinician Unavailable Tennille Contreras S Attending Clinician [phone] Aleena Hankins RN Attending Clinician [phone] Rick Rutledge Attending Clinician Unavail able Dotty Suárez LVN Attending Clinician [phone] JULI CESPEDES Attending Clinician Unavailable Tatum Shabazz Attending Clinician [phone] Abdulaziz Epstein MD Attending Clinician [phone] Nancy Hicks MD Attending Clinici an Juli Cespedes MD Attending Clinician Marc JHAVERI Attending Clinician Unavailable Marc Shaw Attending Clinician [phone] Tania Hatch Attending Clinician Greta Subramanian Attending Clinician [phone] Pcp, Patient Does Not Have A Attending Clinician UNKNOWN, ATTENDING Attending Clinician Unavailab TABITHA Byrd Attending Clinician Unavailsabine guzman Attending Clinician Unavailable MUSHTAQ THOMAS Admitting Clinician Unavailable NATALIYA MOREL Admitting Clinician UnavailNancy Ackerman MD Admitting Clinici an NANCY HICKS Admitting Clinician Unavailable thomas Admitting Clinician Unavailable Payers Payer Name Policy Type Policy Number Effective Date Expirati on Date Source Problems Condition Name Condition Details Condition Category Status Onset Date Resolution Date Last Treatment Date Treating Clinician Comments Source Bradycardi a Bradycardi a Disease Active 04-11 00:00: 00 [facility] Hypotensio n Hypotensio n Disease Active 04-11 00:00: 00 [facility] Hypothyroi dism Hypothyroi dism Disease Active 04-11 00:00: 00 [facility] Elevated brain natriureti c peptide (BNP) level Elevated brain natriureti c peptide (BNP) level Disease Active 04-11 00:00: 00 [facility] Cigarette smoker Cigarette smoker Disease Active 04-11 00:00: 00 [facility] Syncope, unspecifie d syncope type Syncope, unspecifie d syncope type Disease Active 04-10 00:00: 00 [facility] No known active problems No known active problems Disease [facility] Allergies, Adverse Reactions, Alerts Allergy Name Allergy Type Status Severity Reaction(s) Onset Date Inactive Date Treating Clinician Comments Source PHENAZOP YRIDINE DRUG INGREDI Active Other-Cmnt 4-16 00:00: 00 [facility] Phenazop yridine Propensi ty to adverse reaction s Active Other - See comments -16 00:00: 00 [facility] DEXTROAM PHETAMIN E-AMPHET AMINE DRUG Active Other-Cmnt 9- 00:00: 00 [facility] Dextroam phetamin e-Amphet amine Propensi ty to adverse reaction s Active Other - See comments 9- 00:00: 00 [facility] TRAMADOL DRUG INGREDI Active Rash - 00:00: 00 [facility] Tramadol Propensi ty to adverse reaction s Active Rash 08-22 00:00: 00 [facility] NO KNOWN ALLERGIE S Drug Class Active [facility] Social History Social Habit Start Date Stop Date Quantity Comments Source History of tobacco use Passive smoker [facility] ASSERTION [facility] Exposure to SARS-CoV-2 (event) 2022-11-04 00:00:00 2022-11-14 21:11:00 Not sure [facility] Alcohol intake 2022-11-11 00:00:00 2022-11-11 00:00:00 0 /d [facility] Cigarettes smoked current (pack per day) - Reported 2022-04-13 00:00:00 2022-04-13 00:00:00 [facility] Tobacco use and exposure 2022-04-13 00:00:00 2022-04-13 00:00:00 Smokeless tobacco non-user [facility] Sex Assigned At 1990 00:00:00 1990 00:00:00 [facility] Smoking Status Start Date Stop Date Source Smokes tobacco daily 2022-04-13 00:00:00 [facility] Medications Ordered Medication Name Filled Medication Name Start Date Stop Date Current Medication? Ordering Clinician Indication Dosage Frequency Signature (SIG) Comments Components Source ciprofloxac in HCl (CIPRO) tablet 500 mg 11-15 06:00: 00 11-15 04:58 :00 No 500mg 500 mg, Oral, ONCE, 1 dose, On 11/15/22 at 0100, FLY
Re ason for Anti-Infec tive: Documented Infection< br>Documen leidy Infection Site: Urine
D uration of Therapy: Other (see Comments) [facility] morpHINE (4 mg/mL) injection 4 mg 11-15 04:30: 00 11-15 04:15 :00 No 4mg 4 mg, Slow IV Push, ONCE, 1 dose, On 11/14/22 at 2330, STAT [facility] NaCl 0.9% (NS) bolus infusion 500 mL 11-15 04:29: 00 11-15 05:06 :00 No 500mL at 999 mL/hr, 500 mL, IV Piggyback, ONCE, 1 dose, On 11/14/22 at 2330, STAT [facility] ondansetron (ZOFRAN (PF)) injection 4 mg 11-15 03:45: 00 11-15 03:34 :00 No 4mg 4 mg, Slow IV Push, ONCE, 1 dose, On 11/14/22 at 2245, FLY [facility] ketorolac (TORADOL) injection 30 mg 11-15 03:30: 00 11-15 03:34 :00 No 30mg 30 mg, Slow IV Push, ONCE, 1 dose, On 11/14/22 at 2245, Routine [facility] ciprofloxac in HCl 500 mg tablet 11-14 00:00: 00 Yes [id number] 500mg Take 1 tablet by mouth in the morning and 1 tablet in the evening. [facility] ondansetron (ZOFRAN (PF)) injection 4 mg 11-11 08:30: 00 11-11 08:19 :00 No 4mg 4 mg, Slow IV Push, ONCE, 1 dose, On Alivia 11/11/22 at 0330, FLY [facility] FENTanyl PF (SUBLIMAZE (PF)) injection 50 mcg 11-11 08:15: 00 11-11 08:19 :00 No 50ug 50 mcg, Slow IV Push, ONCE, 1 dose, On [facility] 11/11/22 at 0315, STAT [facility] HYDROcodone -acetaminop hen (NORCO 5) 5-325 mg tablet 1 tablet 11-11 08:15: 00 11-11 07:32 :00 No 1{tbl} 1 tablet, Oral, ONCE, 1 dose, On [facility] 11/11/22 at 0315, FLY [facility] iopamidol (ISOVUE 370-500 mL) injection 75 mL 11-11 08:15: 00 11-11 08:15 :00 No [id number] 75mL 75 mL, Intravenou s, ONCE, 1 dose, On [facility] 11/11/22 at 0315, Routine [facility] ketorolac (TORADOL) injection 15 mg 11-11 07:30: 00 11-11 06:50 :00 No 15mg 15 mg, Slow IV Push, ONCE, 1 dose, On Alivia 11/11/22 at 0230, Routine [facility] cefTRIAXone (ROCEPHIN) 1,000 mg in NaCl 0.9% (NS) 100 mL MINI-BAG 11-11 07:15: 00 11-11 08:23 :00 No 1000mg 1,000 mg, IV Piggyback, ONCE, 1 dose, On [facility] 11/11/22 at 0215, Administer over 30 Minutes, 100 mL
Reas on for Anti-Infec tive: Documented Infection< br>Documen leidy Infection Site: Urine
D uration of Therapy: Other (see Comments) [facility] phenazopyri dine 200 mg tablet 11-11 00:00: 00 Yes [id number] 200mg Take 1 tablet by mouth in the morning and 1 tablet at noon and 1 tablet in the evening. [facility] phenazopyri dine 200 mg tablet 11-11 00:00: 00 Yes [id number] 200mg Take 1 tablet by mouth in the morning and 1 tablet at noon and 1 tablet in the evening. [facility] cefpodoxime 100 mg tablet 11-11 00:00: 00 11-19 04:59 :00 No [id number] 100mg Take 1 tablet by mouth in the morning and 1 tablet in the evening. Do all this for 7 days. [facility] cefpodoxime 100 mg tablet 11-11 00:00: 00 11-19 04:59 :00 No [id number] 100mg Take 1 tablet by mouth in the morning and 1 tablet in the evening. Do all this for 7 days. [facility] HYDROcodone -acetaminop hen (NORCO 5) 5-325 mg tablet 1 tablet 2021-08 15:15: 00 06-06 15:14 :00 No 1{tbl} 1 tablet, Oral, ONCE, 1 dose, On 06/06/22 at 0915, FLY [facility] ketorolac (TORADOL) injection 60 mg 2021-08 15:15: 00 06-06 15:16 :00 No 60mg 60 mg, Intramuscu lar, ONCE, 1 dose, On 06/06/22 at 0915, FLY [facility] levothyroxi ne 100 mcg tablet 04-17 00:00: 00 Yes [id number] 100ug Take 1 tablet by mouth every morning. [facility] levothyroxi ne 100 mcg tablet 04-17 00:00: 00 Yes [id number] 100ug Take 1 tablet by mouth every morning. [facility] levothyroxi ne 100 mcg tablet 04-17 00:00: 00 Yes [id number] 100ug Take 1 tablet by mouth every morning. [facility] levothyroxi ne 100 mcg tablet 04-17 00:00: 00 Yes [id number] 100ug Take 1 tablet by mouth every morning. [facility] levothyroxi ne 100 mcg tablet 04-17 00:00: 00 Yes [id number] 100ug Take 1 tablet by mouth every morning. [facility] levothyroxi ne 100 mcg tablet 04-17 00:00: 00 Yes [id number] 100ug Take 1 tablet by mouth every morning. [facility] levothyroxi ne 100 mcg tablet 0 04-17 00:00: 00 Yes [id number] 100ug Take 1 tablet by mouth every morning. [facility] levothyroxi ne 100 mcg tablet 0 04-17 00:00: 00 Yes [id number] 100ug Take 1 tablet by mouth every morning. [facility] levothyroxi ne 100 mcg tablet 04-17 00:00: 00 Yes [id number] 100ug Take 1 tablet by mouth every morning. [facility] levothyroxi ne 100 mcg tablet 04-17 00:00: 00 Yes [id number] 100ug Take 1 tablet by mouth every morning. [facility] levothyroxi ne 100 mcg tablet 04-17 00:00: 00 Yes [id number] 100ug Take 1 tablet by mouth every morning. [facility] amphetamine -dextroamph etamine (ADDERALL XR) 25 mg 24 hr capsule 04-16 11:43: 45 Yes 25mg Take 25 mg by mouth every morning. [facility] amphetamine -dextroamph etamine (ADDERALL XR) 25 mg 24 hr capsule 04-16 11:43: 45 Yes 25mg Take 25 mg by mouth every morning. [facility] amphetamine -dextroamph etamine (ADDERALL XR) 25 mg 24 hr capsule 04-16 11:43: 45 Yes 25mg Take 25 mg by mouth every morning. [facility] amphetamine -dextroamph etamine (ADDERALL XR) 25 mg 24 hr capsule 04-16 11:43: 45 Yes 25mg Take 25 mg by mouth every morning. [facility] amphetamine -dextroamph etamine (ADDERALL XR) 25 mg 24 hr capsule 04-16 11:43: 45 Yes 25mg Take 25 mg by mouth every morning. [facility] amphetamine -dextroamph etamine (ADDERALL XR) 25 mg 24 hr capsule 04-16 11:43: 45 Yes 25mg Take 25 mg by mouth every morning. [facility] amphetamine -dextroamph etamine (ADDERALL XR) 25 mg 24 hr capsule 04-16 11:43: 45 Yes 25mg Take 25 mg by mouth every morning. [facility] amphetamine -dextroamph etamine (ADDERALL XR) 25 mg 24 hr capsule 04-16 11:43: 45 Yes 25mg Take 25 mg by mouth every morning. [facility] amphetamine -dextroamph etamine (ADDERALL XR) 25 mg 24 hr capsule 04-16 11:43: 45 Yes 25mg Take 25 mg by mouth every morning. [facility] amphetamine -dextroamph etamine (ADDERALL XR) 25 mg 24 hr capsule 04-16 11:43: 45 Yes 25mg Take 25 mg by mouth every morning. [facility] amphetamine -dextroamph etamine (ADDERALL XR) 25 mg 24 hr capsule 04-16 11:43: 45 Yes 25mg Take 25 mg by mouth every morning. [facility] ketorolac (TORADOL) injection 30 mg 04-16 03:45: 00 04-16 02:55 :00 No 30mg 30 mg, Slow IV Push, ONCE, 1 dose, On Alivia 04/15/22 at 2245, Routine [facility] NaCl 0.9% (NS) bolus infusion 1,000 mL 04-15 21:00: 00 04-15 21:30 :36 No 1000mL at 250 mL/hr, 1,000 mL, IV Piggyback, ONCE, 1 dose, On Alivia 04/15/22 at 1600, FLY [facility] ketorolac (TORADOL) injection 30 mg 04-15 18:45: 00 04-15 18:02 :00 No 30mg 30 mg, Slow IV Push, ONCE, 1 dose, On Alivia 04/15/22 at 1345, Routine [facility] pantoprazol e (PROTONIX) EC tablet 40 mg 04-15 17:30: 00 Yes 40mg 40 mg, Oral, DAILY, First dose on Tue04/15/22 at 1230, Until Discontinu ed, Routine [facility] gadobenate dimeglumine (MULTIHANCE -20 mL) injection 11.3 mL 04-15 16:00: 00 04-15 15:36 :00 No [id number] .2mL/kg 11.3 mL (0.2 mL/kg ?56.5 kg), Intravenou s, ONCE, 1 dose, On Tue04/15/22 at 1100, Routine [facility] acetaminoph en-codeine (TYLENOL #3) 300-30 mg tablet 1 tablet 04-15 12:30: 26 Yes 1{tbl} 1 tablet, Oral, Q4HPRN, Starting on Tue04/15/22 at 0730, Until Discontinu ed, Routine, Pain (scale 4-6) [facility] HYDROcodone -acetaminop hen (NORCO 5) 5-325 mg tablet 1 tablet 04-15 12:30: 16 Yes 1{tbl} 1 tablet, Oral, Q4HPRN, Starting on Tue04/15/22 at 0730, Until Discontinu ed, Routine, Pain (scale 7-10) [facility] sennosides- docusate sodium (SENOKOT-S) 8.6-50 mg per tablet 1 tablet 04-15 02:00: 00 Yes 1{tbl} 1 tablet, Oral, DAILY, First dose on Tue04/14/22 at 2100, Until Discontinu ed, [facility] 30 mg 04-14 20:45: 00 04-14 20:48 :00 No 30mg 30 mg, Slow IV Push, ONCE, 1 dose, On Tue04/14/22 at 1545, [facility] lactated ringers [facility] infusion 1,000 mL 04-14 18:00: 00 04-14 18:00 :00 No 1000mL at 999 mL/hr, 1,000 mL, Intravenou s, ONCE, 1 dose, On Tue04/14/22 at 1300, Routine [facility] polyethylen e glycol 3350 powder 17 g 04-14 14:00: 00 04-15 01:50 :52 No 17g 17 g, Oral, DAILY, First dose on Tue04/14/22 at 0900, Until Discontinu ed, Routine [facility] magnesium sulfate in water 4 gram/50 mL (8 %) IV Piggyback 4 g 04-14 13:30: 00 04-14 14:00 :00 No 4g 4 g, IV Piggyback, ONCE, 1 dose, On Tue04/14/22 at 0830, Routine [facility] KCL (KLOR-CON M20) tablet 40 mEq 04-14 13:30: 00 04-14 13:19 :00 No 40meq 40 mEq, Oral, ONCE, 1 dose, On Tue04/14/22 at 0830, Routine [facility] cyclobenzap rine (FLEXERIL) tablet 10 mg 04-13 19:00: 00 Yes 10mg 10 mg, Oral, TID, First dose (after last modificati on) on Tue04/13/22 at 1400, Until Discontinu ed, Routine [facility] levothyroxi ne (SYNTHROID) tablet 100 mcg 04-13 11:00: 00 Yes 100ug 100 mcg, Oral, QAM-0600, First dose (after last modificati on) on Tue04/13/22 at 0600, Until Discontinu ed, Routine [facility] cyclobenzap rine (FLEXERIL) tablet 5 mg 04-12 16:45: 00 04-13 17:51 :10 No 5mg 5 mg, Oral, TID, First dose on Tue04/12/22 at 1145, Until Discontinu ed, Routine [facility] DOPamine 800 mg/500 mL (1,600 mcg/mL) infusion RTU 04-12 16:30: 55 04-15 01:51 :19 No 2.5ug/k g/min 2.5-7.5 mcg/kg/min ?55.5 kg (5.2031-15 .6094 mL/hr, rounded to 5.2-15.61 mL/hr), IV Infusion, TITRATE, Target SBP > 90, OK to keep HR > 40 if SBP at target and patient comfortabl e, Starting on Tue04/12/22 at 1130
In itiate infusion at 2.5 mcg/kg/min . &nb sp;Increas e by 2.5 mcg/kg/min every 1 minute to 5 minutes as needed to reach and maintain goal blood pressure.& amp;nbsp;& nbsp;Maxim um dose = 20 mcg/kg/min . If goal not maintained at maximum allowed dose, contact prescriber . &nb sp;Adminis ter only one peripheral intravenou s vasopresso r at a time.
[facility] lidocaine 1% (PF) (XYLOCAINE) injection 5 mL 04-12 16:30: 00 04-12 17:45 :00 No 5mL 5 mL, Subcutaneo us, ONCE, 1 dose, On Tue04/12/22 at 1130, Routine [facility] NaCl 0.9% (NS) injection 10 mL 04-12 16:20: 14 Yes 10mL 10 mL, Slow IV Push, PRN, Starting on Tue04/12/22 at 1120, Until Discontinu ed, Routine, line maintenanc e [facility] morpHINE (2 mg/mL) injection 2 mg 04-12 14:49: 56 04-15 12:30 :42 No 2mg 2 mg, Slow IV Push, Q6HPRN, Starting on Tue04/12/22 at 0949, Until Alivia 04/15/22 at 0730, Routine, Pain (scale 7-10) [facility] HYDROcodone -acetaminop hen (NORCO 5) 5-325 mg tablet 1 tablet 04-12 14:49: 30 04-15 12:30 :42 No 1{tbl} 1 tablet, Oral, Q4HPRN, Starting on Tue04/12/22 at 0949, Until Alivia 04/15/22 at 0730, Routine, Pain (scale 4-6) [facility] cholecalcif genevieve (vitamin D3) tablet 2,000 Units 04-12 14:00: 00 Yes 2000U 2,000 Units, Oral, DAILY, First dose (after last modificati on) on Tue04/12/22 at 0900, Until Discontinu ed, Routine [facility] thiamine (VITAMIN B1) tablet 100 mg 04-12 14:00: 00 Yes 100mg 100 mg, Oral, DAILY, First dose on Tue04/12/22 at 0900, Until Discontinu ed, Routine [facility] levothyroxi ne (SYNTHROID) injection 100 mcg 04-12 13:45: 00 04-12 13:52 :00 No 100ug 100 mcg, Intravenou s, ONCE, 1 dose, On Tue04/12/22 at 0845, Routine [facility] levothyroxi ne (SYNTHROID) tablet 50 mcg 04-12 11:00: 00 04-12 16:20 :48 No 50ug 50 mcg, Oral, QAM-0600, First dose (after last modificati on) on Tue04/12/22 at 0600, Until Discontinu ed, Routine [facility] morpHINE (2 mg/mL) injection 2 mg 04-12 09:14: 26 04-12 09:27 :00 No 2mg 2 mg, Slow IV Push, PRN, 1 dose, Starting on Tue04/12/22 at 0414, Until Tue04/12/22 at 0427, Routine, headache [facility] DOPamine 800 mg/500 mL (1,600 mcg/mL) infusion RTU 04-12 02:53: 09 04-12 16:32 :25 No 2.5ug/k g/min 2.5-7.5 mcg/kg/min ?55.5 kg (5.2031-15 .6094 mL/hr, rounded to 5.2-15.61 mL/hr), IV Infusion, TITRATE, SBP Goal 100-140 mmHg, HR > 60, Starting on Tue04/11/22 at 2153
In itiate infusion at 2.5 mcg/kg/min . &nb sp;Increas e by 2.5 mcg/kg/min every 1 minute to 5 minutes as needed to reach and maintain goal blood pressure.& nbsp;&nbsp ;Maximum dose = 20 mcg/kg/min . If goal not maintained at maximum allowed dose, contact prescriber . &nb sp;Adminis ter only one peripheral intravenou s vasopresso r at a time.
[facility] ibuprofen (IBU) tablet 600 mg 04-12 02:52: 32 04-12 15:41 :06 No 600mg 600 mg, Oral, TIDPRN, Starting on Tue04/11/22 at 2152, Until Tue04/12/22 at 1041, Routine, Pain (scale 1-3) [facility] DOPamine 800 mg/500 mL (1,600 mcg/mL) infusion RTU 04-12 02:39: 25 04-12 02:53 :28 No 2.5ug/k g/min 2.5-7.5 mcg/kg/min ?55.5 kg (5.2031-15 .6094 mL/hr, rounded to 5.2-15.61 mL/hr), IV Infusion, [...] intravenou s vasopresso r at a time.
[facility] hydrocortis one sod succ (CORTEF) injection 50 mg 04-11 22:00: 00 04-12 09:27 :00 No 50mg 50 mg, Intravenou s, Q6H, 3 doses, First dose on Tue04/11/22 at 1700, Last dose on Tue04/12/22 at 0000, 2 mL [facility] proCHLORper azine (COMPAZINE) injection 10 mg 04-11 21:28: 31 Yes 10mg 10 mg, Slow IV Push, Q6HPRN, Starting on Tue04/11/22 at 1628, Until Discontinu ed, Routine, Nausea and Vomiting (N/V), alternate with ondansetro n [facility] levothyroxi ne (SYNTHROID) injection 50 mcg 04-11 17:15: 00 04-11 17:53 :00 No 50ug 50 mcg, Intravenou s, ONCE, 1 dose, On Tue04/11/22 at 1215, Routine [facility] clonazePAM (KLONOPIN) tablet 2 mg 04-11 16:15: 00 Yes 2mg 2 mg, Oral, BID, First dose (after last modificati on) on Tue04/11/22 at 1115, Until Discontinu ed, Routine [facility] cosyntropin (CORTROSYN) injection 250 mcg 04-11 15:45: 00 04-11 16:40 :00 No 250ug 250 mcg, Slow IV Push, ONCE, 1 dose, On Tue04/11/22 at 1045, Routine [facility] enoxaparin (LOVENOX) injection 30 mg 04-11 14:00: 00 Yes 30mg 30 mg, Subcutaneo us, DAILY, First dose on Tue04/11/22 at 0900, Until Discontinu ed, Routine [facility] DOPamine 800 mg/500 mL (1,600 mcg/mL) infusion RTU 04-11 12:00: 00 04-12 01:40 :01 No 5ug/kg/ min 5 mcg/kg/min ?55.5 kg (10.4063 mL/hr, rounded to 10.41 mL/hr), IV Infusion, CONTINUOUS , Starting on 04/11/22 at 0700 [facility] levothyroxi ne (SYNTHROID) tablet 25 mcg 04-11 11:00: 00 04-11 11:19 :00 No 25ug 25 mcg, Oral, QAM-0600, 1 dose, First dose on 04/11/22 at 0600, Routine [facility] atropine injection 0.5 mg 04-11 06:00: 00 04-11 05:02 :00 No .5mg 0.5 mg, IV Push, ONCE, 1 dose, On 04/11/22 at 0100, Routine [facility] ondansetron (ZOFRAN (PF)) injection 4 mg 04-11 05:41: 54 Yes 4mg 4 mg, Slow IV Push, Q6HPRN, Starting on 04/11/22 at 0041, Until Discontinu ed, Routine, Nausea and Vomiting (N/V) [facility] butalbital- acetaminoph en-caff (ESGIC) 50-325-40 mg tablet 1 tablet 04-11 01:18: 20 04-12 16:35 :31 No 1{tbl} 1 tablet, Oral, Q4HPRN, Starting on 04/10/22 at 2018, Until 04/12/22 at 1135, Routine, headache [facility] clonazePAM (KLONOPIN) tablet 1 mg 04-10 20:45: 00 04-11 05:01 :41 No 1mg 1 mg, Oral, BID, First dose on 04/10/22 at 1545, Until Discontinu ed, Routine [facility] acetaminoph en (TYLENOL) tablet 650 mg 04-10 18:51: 25 Yes 650mg 650 mg, Oral, Q6HPRN, Starting on 04/10/22 at 1351, Until Discontinu ed, Routine, Pain (scale 1-3) [facility] ketorolac (TORADOL) injection 15 mg 04-10 18:50: 26 04-12 15:41 :06 No 15mg 15 mg, Slow IV Push, Q6HPRN, Starting on 04/10/22 at 1350, Until 04/12/22 at 1041, Routine, Pain (scale 4-6) [facility] iopamidol (ISOVUE 370-500 mL) injection 70 mL 04-10 18:15: 00 04-10 18:15 :00 No [id number] 70mL 70 mL, Intravenou s, ONCE, 1 dose, On 04/10/22 at 1315, Routine [facility] NaCl 0.9% (NS) bolus infusion 1,000 mL 04-10 16:00: 00 04-10 16:36 :00 No 1000mL at 999 mL/hr, 1,000 mL, IV Infusion, ONCE, 1 dose, [facility]22 [facility] 1,000 mg 04-10 16:00: 00 04-10 15:50 :00 No 1000mg 1,000 mg, Oral, ONCE, 1 dose, On 04/10/22 at 1100, [facility] ALPRAZOLAM ORAL 04-10 15:31: 37 04-10 00:00 :00 No Take by mouth. [facility] NaCl 0.9% (NS) bolus infusion 1,000 mL 04-10 14:45: 00 04-10 15:05 :00 No 1000mL at 999 mL/hr, 1,000 mL, IV Infusion, ONCE, 1 dose, On 04/10/22 at 0945, [facility] ondans[facility] (ZOFRAN (PF)) injection 4 mg 04-10 14:45: 00 04-10 14:35 :00 No 4mg 4 mg, Slow IV Push, ONCE, 1 dose, On 04/10/22 at 0945, [facility] NaCl 0.9% (NS) bolus infusion 1,000 mL 04-10 14:30: 00 04-10 15:05 :00 No 1000mL at 999 mL/hr, 1,000 mL, IV Infusion, ONCE, 1 dose, On 04/10/22 at 0930, FLY [facility] ondansetron (ZOFRAN ODT) 4 mg disintegrat ing tablet 08-23 00:00: 00 Yes [id number] 4mg Take 1 tablet by mouth every 8 (eight) hours as needed for Nausea and Vomiting (N/V). [facility] ondansetron (ZOFRAN ODT) 4 mg disintegrat ing tablet 08-23 00:00: 00 04-10 00:00 :00 No [id number] 4mg Take 1 tablet by mouth every 8 (eight) hours as needed for Nausea and Vomiting (N/V). [facility] cephALEXin (KEFLEX) 500 mg capsule 08-23 00:00: 00 09-03 05:59 :00 No [id number] 500mg Take 1 capsule by mouth 3 (three) times daily for 10 days. [facility] metroNIDAZO LE (FLAGYL) 500 mg tablet 03-26 00:00: 00 04-03 04:59 :00 No [id number] 500mg Take 1 tablet by mouth 2 (two) times daily for 7 days. [facility] metroNIDAZO LE 500 mg tablet 03-23 00:00: 00 03-31 04:59 :00 No [id number] 500mg Take 1 tablet by mouth 2 (two) times daily for 7 days. [facility] metroNIDAZO LE 500 mg tablet 03-23 00:00: 00 03-31 04:59 :00 No [id number] 500mg Take 1 tablet by mouth 2 (two) times daily for 7 days. [facility] metroNIDAZO LE 500 mg tablet 03-23 00:00: 00 03-31 04:59 :00 No [id number] 500mg Take 1 tablet by mouth 2 (two) times daily for 7 days. [facility] metroNIDAZO LE 500 mg tablet 03-23 00:00: 00 03-31 04:59 :00 No [id number] 500mg Take 1 tablet by mouth 2 (two) times daily for 7 days. [facility] ALPRAZOLAM ORAL 03-21 23:35: 02 Yes Take by mouth. [facility] ALPRAZOLAM ORAL 03-21 23:35: 02 Yes Take by mouth. [facility] ALPRAZOLAM ORAL 03-21 23:35: 02 Yes Take by mouth. [facility] ALPRAZOLAM ORAL 03-21 23:35: 02 Yes Take by mouth. [facility] ALPRAZOLAM ORAL 03-21 18:35: 02 Yes Take by mouth. [facility] valACYclovi r 1 gram tablet 03-21 00:00: 00 03-29 04:59 :00 No [id number] 1g Take 1 tablet by mouth 3 (three) times daily for 7 days. [facility] valACYclovi r 1 gram tablet 03-21 00:00: 00 03-29 04:59 :00 No [id number] 1g Take 1 tablet by mouth 3 (three) times daily for 7 days. [facility] valACYclovi r 1 gram tablet 03-21 00:00: 00 03-29 04:59 :00 No [id number] 1g Take 1 tablet by mouth 3 (three) times daily for 7 days. [facility] valACYclovi r 1 gram tablet 03-21 00:00: 00 03-29 04:59 :00 No [id number] 1g Take 1 tablet by mouth 3 (three) times daily for 7 days. [facility] clonazePAM 2 mg tablet 03-09 00:00: 00 Yes 2mg Take 2 mg by mouth 2 (two) times daily. [facility] clonazePAM 2 mg tablet 03-09 00:00: 00 Yes 2mg Take 2 mg by mouth 2 (two) times daily. [facility] tablet 2020-0 03-09 00:00: 00 Yes 2mg Take 2 mg by mouth 2 (two) times daily. [facility] clonazePAM 2 mg tablet 03-09 00:00: 00 Yes 2mg Take 2 mg by mouth 2 (two) times daily. [facility] clonazePAM 2 mg tablet 03-09 00:00: 00 Yes 2mg Take 2 mg by mouth 2 (two) times daily. [facility] clonazePAM 2 mg tablet 03-09 00:00: 00 Yes 2mg Take 2 mg by mouth 2 (two) times daily. [facility] clonazePAM 2 mg tablet 03-09 00:00: 00 Yes 2mg Take 2 mg by mouth 2 (two) times daily. [facility] clonazePAM 2 mg tablet 03-09 00:00: 00 Yes 2mg Take 2 mg by mouth 2 (two) times daily. [facility] clonazePAM 2 mg tablet 03-09 00:00: 00 Yes 2mg Take 2 mg by mouth 2 (two) times daily. [facility] clonazePAM 2 mg tablet 03-09 00:00: 00 Yes 2mg Take 2 mg by mouth 2 (two) times daily. [facility] clonazePAM 2 mg tablet 03-09 00:00: 00 Yes 2mg Take 2 mg by mouth 2 (two) times daily. [facility] clonazePAM 2 mg tablet 2020-0 03-09 00:00: 00 Yes 2mg Take 2 mg by mouth 2 (two) times daily. [facility] clonazePAM 2 mg tablet 0 03-09 00:00: 00 Yes 2mg Take 2 mg by mouth 2 (two) times daily. [facility] clonazePAM 2 mg tablet 03-09 00:00: 00 Yes 2mg Take 2 mg by mouth 2 (two) times daily. [facility] clonazePAM 2 mg tablet 2020-03-09 00:00: 00 Yes 2mg Take 2 mg by mouth 2 (two) times daily. [facility] clonazePAM 2 mg tablet 8-09 00:00: 00 Yes 2mg Take 2 mg by mouth 2 (two) times daily. [facility] ALPRAZOLAM ORAL 15 16:08: 13 Yes Take by mouth. [facility] amoxicillin 875 mg tablet 12-13 00:00: 00 Yes 875mg Take 1 tablet by mouth 2 (two) times daily. [facility] traMADOL 50 mg tablet 12-13 00:00: 00 Yes 50mg Take 1 tablet by mouth every 6 (six) hours as needed for Pain (scale 4-6). [facility] amoxicillin 875 mg tablet 12-13 00:00: 00 Yes 875mg Take 1 tablet by mouth 2 (two) times daily. [facility] traMADOL 50 mg tablet 12-13 00:00: 00 Yes 50mg Take 1 tablet by mouth every 6 (six) hours as needed for Pain (scale 4-6). [facility] amoxicillin 875 mg tablet 12-13 00:00: 00 Yes 875mg Take 1 tablet by mouth 2 (two) times daily. [facility] traMADOL 50 mg tablet 12-13 00:00: 00 Yes 50mg Take 1 tablet by mouth every 6 (six) hours as needed for Pain (scale 4-6). [facility] amoxicillin 875 mg tablet 12-13 00:00: 00 Yes 875mg Take 1 tablet by mouth 2 (two) times daily. [facility] traMADOL 50 mg tablet 15 00:00: 00 Yes 50mg Take 1 tablet by mouth every 6 (six) hours as needed for Pain (scale 4-6). [facility] amoxicillin 875 mg tablet 0 15 00:00: 00 Yes 875mg Take 1 tablet by mouth 2 (two) times daily. [facility] traMADOL 50 mg tablet 0 15 00:00: 00 Yes 50mg Take 1 tablet by mouth every 6 (six) hours as needed for Pain (scale 4-6). [facility] amoxicillin 875 mg tablet 12-13 00:00: 00 Yes 875mg Take 1 tablet by mouth 2 (two) times daily. [facility] traMADOL 50 mg tablet 12-13 00:00: 00 Yes 50mg Take 1 tablet by mouth every 6 (six) hours as needed for Pain (scale 4-6). [facility] amoxicillin 875 mg tablet 12-13 00:00: 00 04-10 00:00 :00 No 875mg Take 1 tablet by mouth 2 (two) times daily. [facility] traMADOL 50 mg tablet 12-13 00:00: 00 04-10 00:00 :00 No 50mg Take 1 tablet by mouth every 6 (six) hours as needed for Pain (scale 4-6). [facility] Vital Signs Vital Name Observation Time Observation Value Comments S ource Systolic blood pressure 2022-11-15 05:00:00 93 mm[Hg] [facility] Diastolic blood pressure 2022-11-15 05:00:00 64 mm[Hg] [facility] Heart rate 2022-11-15 05:00:00 50 /min [facility] Body temperature 2022-11-15 05:00:00 36.22 Estrella [facility] Oxygen saturation in Arterial blood by Pulse oximetry 2022-11-15 05:00:00 98 /min [facility] Respiratory rate 2022-11-15 03:00:00 19 /min [facility] Body height 2022-11-15 02:00:00 162.6 cm [facility] Body weight 2022-11-15 02:00:00 63.504 kg [facility] BMI 2022-11-15 02:00:00 24.03 kg/m2 [facility] Systolic blood pressure 2022-11-11 08:00:00 118 mm[Hg] [facility] Diastolic blood pressure 2022-11-11 08:00:00 68 mm[Hg] [facility] Heart rate 2022-11-11 08:00:00 53 /min [facility] Respiratory rate 2022-11-11 08:00:00 16 /min [facility] Oxygen saturation in Arterial blood by Pulse oximetry 2022-11-11 08:00:00 100 /min [facility] Body temperature 2022-11-11 06:43:00 36.61 Estrella [facility] Body height 2022-11-11 06:43:00 162.6 cm [facility] Body weight 2022-11-11 06:43:00 58.968 kg [facility] BMI 2022-11-11 06:43:00 22.31 kg/m2 [facility] Systolic blood pressure 2022-06-06 14:19:00 117 mm[Hg] [facility] Diastolic blood pressure 2022-06-06 14:19:00 85 mm[Hg] [facility] Heart rate 2022-06-06 14:19:00 89 /min [facility] Body temperature 2022-06-06 14:19:00 36.28 Estrella [facility] Respiratory rate 2022-06-06 14:19:00 16 /min [facility] Body height 2022-06-06 14:19:00 162.6 cm [facility] Body weight 2022-06-06 14:19:00 58.968 kg [facility] BMI 2022-06-06 14:19:00 22.31 kg/m2 [facility] Systolic blood pressure 2022-04-16 13:23:00 98 mm[Hg] [facility] Diastolic blood pressure 2022-04-16 13:23:00 65 mm[Hg] [facility] Heart rate 2022-04-16 13:23:00 107 /min [facility] Body temperature 2022-04-16 13:19:00 36.44 Estrella [facility] Respiratory rate 2022-04-16 13:19:00 18 /min [facility] Oxygen saturation in Arterial blood by Pulse oximetry 2022-04-16 13:19:00 97 /min [facility] Body weight 2022-04-16 09:36:00 58.469 kg bed scale was used, pt refused to stand on the regular scale [facility] BMI 2022-04-16 09:36:00 22.13 kg/m2 [facility] Body height 2022-04-14 01:00:00 162.6 cm [facility] Systolic blood pressure 2021-08-23 05:10:00 121 mm[Hg] [facility] Diastolic blood pressure 2021-08-23 05:10:00 90 mm[Hg] [facility] Heart rate 2021-08-23 05:10:00 74 /min [facility] Body temperature 2021-08-23 05:10:00 36.56 Estrella [facility] Respiratory rate 2021-08-23 05:10:00 19 /min [facility] Body height 2021-08-23 05:10:00 162.6 cm [facility] Body weight 2021-08-23 05:10:00 56.7 kg [facility] BMI 2021-08-23 05:10:00 21.46 kg/m2 [facility] Oxygen saturation in Arterial blood by Pulse oximetry 2021-08-23 05:10:00 100 /min [facility] Procedures Procedure Date / Time Performed Performing Clinician Source US OVARY TORSION 2022-11-15 04:11:07 Mushtaq Thomas [facility] POCT TEST 2022-11-15 02:50:00 Mushtaq Thomas [facility] COMP. METABOLIC PANEL (20782) 2022-11-15 02:44:00 Mushtaq Thomas [facility] CBC WITH DIFF 2022-11-15 02:44:00 Mushtaq Thomas [facility] URINALYSIS 2022-11-15 02:44:00 Mushtaq Thomas [facility] NOTICE OF PRIVACY PRACTICES 2022-11-15 01:58:59 Doctor Unassigned, [place] [facility] CONSENT/REFUSAL FOR DIAGNOSIS AND TREATMENT 2022-11-15 01:58:33 Doctor Unassigned, [place] [facility] BASIC METABOLIC PANEL (NA, K, CL, CO2, GLUCOSE, BUN, CREATININE, CA) 2022-11-11 06:49:00 Nataliya Morel [facility] CBC WITH DIFF 2022-11-11 06:49:00 Christina [facility] URINALYSIS 2022-11-11 06:47:00 Christina [facility] POCT TEST 2022-11-11 06:47:00 Christina [facility] NOTICE OF PRIVACY PRACTICES 2022-11-11 06:39:53 Doctor Unassigned, [place] [facility] CONSENT/REFUSAL FOR DIAGNOSIS AND TREATMENT 2022-11-11 06:37:56 Doctor Unassigned, [place] [facility] CONSENT/REFUSAL FOR DIAGNOSIS AND TREATMENT 2022-06-06 14:13:56 Doctor Unassigned, [place] [facility] MAGNESIUM 2022-04-16 09:34:00 Akin [facility] BASIC METABOLIC PANEL (NA, K, CL, CO2, GLUCOSE, BUN, CREATININE, CA) 2022-04-16 09:34:00 Akin [facility] CBC WITH DIFF 2022-04-16 09:34:00 Akin [facility] MR CARDIAC MORPHOLOGY W WO CONTRAST 2022-04-15 15:45:00 [facility] MAGNESIUM 2022-04-15 10:03:00 [facility] HEPATIC FUNCTION PANEL ([id number]) (ALB,T.PRO,BILI T,BU/BC,ALT,AST,ALK PHOS) 2022-04-15 10:03:00 [facility] BASIC METABOLIC PANEL (NA, K, CL, CO2, GLUCOSE, BUN, CREATININE, CA) 2022-04-15 10:03:00 [facility] CBC WITH DIFF 2022-04-15 10:03:00 [facility] PROTHROMBIN TIME / INR 2022-04-15 10:03:00 [facility] HEPATITIS B SURFACE ANTIBODY 2022-04-15 10:03:00 [facility] HCV ANTIBODY 2022-04-15 10:03:00 Manav [facility] HBC ANTIBODY (IGM & IGG) 2022-04-15 10:03:00 [facility] GC & CHLAMYDIA AMPLIFIED ASSAY 2022-04-14 17:08:00 [facility] ANTICARDIOLIPIN ANTIBODIES 2022-04-14 15:17:00 [facility] THYROID PEROXIDASE (TPO) AB 2022-04-14 15:17:00 [facility] CYCLIC CITRULLINATED PEPTIDE 2022-04-14 15:17:00 [facility] ANTI-B2 GLYCOPROTEIN I AB 2022-04-14 15:17:00 [facility] BASIC METABOLIC PANEL (NA, K, CL, CO2, GLUCOSE, BUN, CREATININE, CA) 2022-04-14 00:45:00 Lin [facility] CBC WITH DIFF 2022-04-14 00:45:00 Lin [facility] PROTHROMBIN TIME / INR 2022-04-14 00:45:00 Lin [facility] ACTIVATED PARTIAL THRMPLAS JOE 2022-04-14 00:45:00 Lin [facility] HEPATITIS B SURFACE ANTIGEN 2022-04-14 00:45:00 [facility] LACTIC ACID WHOLE BLOOD 2022-04-14 00:45:00 Lin [facility] LYME, LATE DISEASE (ABS, KISHAN W/REFLEX TO WB) 2022-04-14 00:45:00 David Ojeda [facility] MAGNESIUM 2022-04-13 08:24:00 Suly Sweet [facility] BASIC METABOLIC PANEL (NA, K, CL, CO2, GLUCOSE, BUN, CREATININE, CA) 2022-04-13 08:24:00 Abdulaziz Epstein [facility] HIV 1/2 AG-AB WITH REFLEX 2022-04-13 08:24:00 [facility] 2022-04-12 18:12:00 Abdulaziz Epstein [facility] URINALYSIS 2022-04-12 18:08:00 Abdulaziz Epstein [facility] URINE CULTURE 2022-04-12 18:08:00 Abdulaziz Epstein [facility] PROTEIN CREAT RATIO URINE RANDOM 2022-04-12 18:08:00 Abdulaziz Epstein [facility] CREATINE KINASE 2022-04-12 17:56:00 Abdulaziz Epstein [facility] BASIC METABOLIC PANEL (NA, K, CL, CO2, GLUCOSE, BUN, CREATININE, CA) 2022-04-12 17:56:00 Abdulaziz Epstein [facility] CT HEAD WO CONTRAST 2022-04-12 11:06:[address] [facility] FREE T4 2022-04-12 06:11:00 Abdulaziz Epstein [facility] CBC WITH DIFF 2022-04-12 06:11:00 Abdulaziz Epstein [facility] HB ECG ROUTINE & RHYTHM STRIP 2022-04-12 05:23:[address] [facility] RHEUMATOID FACTOR 2022-04-11 22:41:00 Lucian Abdulaziz [facility] C4 COMPLEMENT 2022-04-11 22:41:00 Lucian Abdulaziz [facility] SEDIMENTATION RATE 2022-04-11 22:41:00 Lucian [facility] PROTHROMBIN TIME / INR 2022-04-11 22:41:00 Lucian [facility] ACTIVATED PARTIAL THRMPLAS JOE 2022-04-11 22:41:00 Lucian [facility] ANTI-NUCLEAR ANTIBODY SCREEN 2022-04-11 22:41:00 Abdulaziz Epstein [facility] ANTI-NUCLEAR ANTIBODY TITER 2022-04-11 22:41:00 Lucian Abdulaziz [facility] ANTI-SSB(LA) 2022-04-11 22:41:00 David Ojeda [facility] ANTI-DOUBLE STRANDED DNA 2022-04-11 22:41:00 Lucian Abdulaziz [facility] GALV ONLY - SYPHILIS IGG/IGM 2022-04-11 22:41:00 Deven Novak [facility] ANTI-NUCLEAR ANTIBODY-PATHOLOGIST INTERPRETATION 2022-04-11 22:41:00 Abdulaziz Epstein [facility] CORTISOL STIMULATION 60 MIN 2022-04-11 17:46:00 [facility] 30 MIN 2022-04-11 17:16:00 Lucian [facility] ADRENOCORTICOTROPIC HORMONE 2022-04-11 16:30:00 Lucian [facility] C-REACTIVE PROTEIN 2022-04-11 16:30:00 [facility] 0 MIN 2022-04-11 16:30:00 Lucian [facility] XR CHEST 1 VW 2022-04-11 14:46:47 May Pal [facility] TRANSTHORACIC ECHO (TTE) COMPLETE 2022-04-11 13:59:00 Lucian [facility] HB ECG ROUTINE & RHYTHM STRIP 2022-04-11 12:47:45 Lucian [facility] PHOSPHORUS 2022-04-11 09:48:00 Lucian [facility] MAGNESIUM 2022-04-11 09:48:00 Lucian [facility] CORTISOL AM 2022-04-11 09:48:00 Suly Sweet [facility] TROPONIN I 2022-04-11 09:48:00 Lucian [facility] HEPATIC FUNCTION PANEL ([id number]) (ALB,T.PRO,BILI T,BU/BC,ALT,AST,ALK PHOS) 2022-04-11 09:48:00 Lucian [facility] BASIC METABOLIC PANEL (NA, K, CL, CO2, GLUCOSE, BUN, CREATININE, CA) 2022-04-11 09:48:00 Lucian [facility] CBC WITH DIFF 2022-04-11 09:48:00 Lucian [facility] LACTIC ACID WHOLE BLOOD 2022-04-10 19:46:00 Lucian [facility] HB ECG ROUTINE & RHYTHM STRIP 2022-04-10 19:30:05 Lucian [facility] MRSA / MSSA SCREEN BY PATRICIA ROMO 2022-04-10 18:47:00 Abdulaziz Epstein [facility] CT CHEST PULMONARY ANGIOGRAM 2022-04-10 17:17:12 [facility] (ID NOW RAPID TESTING) 2022-04-10 16:37:00 [facility] COVID INTERPRETATION 2022-04-10 16:37:00 [facility] HB [facility] ROUTINE & RHYTHM STRIP 2022-04-10 13:55:45 [facility] PHOSPHORUS 2022-04-10 13:36:00 [facility] CREATINE KINASE 2022-04-10 13:36:00 [facility] MAGNESIUM 2022-04-10 13:36:00 Eduardo [facility] TROPONIN I 2022-04-10 13:36:00 [facility] FREE T4 2022-04-10 13:36:00 Abdulaziz Epstein [facility] THYROID STIMULATING HORMONE 2022-04-10 13:36:00 Eduardo [facility] COMP. METABOLIC PANEL ([id number]) 2022-04-10 13:36:00 [facility] ETHANOL 2022-04-10 13:36:00 [facility] 2022-04-10 13:36[facility]00 [facility] 2022-04-10 13:36:00 [facility] PO[facility] 2022-04-10 13:36:00 Eduardo [facility] N-TERMINAL PRO-BNP 2022-04-10 13:36:00 Eduardo [facility] URINE DRUG (IMMUNOASSAY) - COMPREHENSIVE DRUG SCREEN W/O REFLEX 2022-04-10 13:36:00 Eduardo [facility] CONSENT/REFUSAL FOR DIAGNOSIS AND TREATMENT 2022-04-10 13:23:47 Doctor Unassigned, [place] [facility] HOSPITAL ADMISSION 2022-04-10 05:01:00 Doctor Unassigned, [place] [facility] ASSIGNMENT OF BENEFITS 2021-08-23 06:40:03 Doctor Unassigned, [place] [facility] URINALYSIS 2021-08-23 06:00:00 Marc Jhaveri [facility] POCT TEST 2021-08-23 06:00:00 Marc Jhaveri [facility] NOTICE OF PRIVACY PRACTICES 2021-08-23 05:07:28 Doctor Unassigned, [place] [facility] CONSENT/REFUSAL FOR DIAGNOSIS AND TREATMENT 2021-08-23 05:07:13 Doctor Unassigned, [place] [facility] Encounters Start Date/Time End Date/Time Encounter Type Admission Type Attending [facility] Facility Care Department Encounter ID Source 2023-03-30 08:28:58 2023-03-30 08:28:58 Outpatient [facility] [id number] Chucky Beaver 2022-11-14 21:14:00 2022-11-15 00:10:00 Emergency X MUSHTAQ THOMAS [facility] ERT [id number] [facility] 2022-11-14 21:14:00 2022-11-15 00:10:00 Emergency Mushtaq Thomas [facility] [id number] 350.1.13.10 4.2.7.2.686 [id number] [facility] 2022-11-11 01:38:00 2022-11-11 03:46:00 Emergency X NATALIYA MOREL [facility] ERT [id number] [facility] 2022-11-11 01:38:00 2022-11-11 03:46:[address] Natal[address] Morel [facility] [id number] 350.1.13.10 4.2.7.2.686 [id number] [facility] 2022-06-06 08:22:00 2022-06-06 10:05:00 Emergency X TENNILLE GARBER [facility] ERT [id number] [facility] 2022-06-06 08:22:00 2022-06-06 10:05:[address]ber [facility] [id number] 350.1.13.10 4.2.7.2.686 [id number] [facility] 2022-06-01 00:00:00 2022-06-01 00:00:00 Patient Outreach Aleena Hankins [facility] [id number] 350.1.13.10 4.2.7.2.686 [id number] [facility] 2022-05-03 00:00:00 2022-05-03 00:00:00 Patient Outreach MicheleRick martinez [facility] [id number] 350.1.13.10 4.2.7.2.686 [id number] [facility] 2022-04-28 00:00:00 2022-04-28 00:00:00 Patient Outreach Aleena Hankins [facility] [id number] 350.1.13.10 4.2.7.2.686 [id number] [facility] 2022-04-27 00:00:00 2022-04-27 00:00:00 Patient Outreach Aleena Hankins [facility] [id number] 350.1.13.10 4.2.7.2.686 [id number] [facility] 2022-04-23 00:00:00 2022-04-23 00:00:00 Transition of Care Dotty Suárez [id number] 350.1.13.10 4.2.7.2.686 [id number] [facility] 2022-04-19 00:00:00 2022-04-19 00:00:00 Transition of Care Dotty Suárez [id number] 350.1.13.10 4.2.7.2.686 [id number] [facility] 2022-04-19 00:00:00 2022-04-19 00:00:00 Transition of Care Dotty Suárez [id number] 350.1.13.10 4.2.7.2.686 [id number] [facility] 2022-04-16 13:52:31 2022-04-16 23:59:00 Outpatient eBata CESPEDES [facility] [id number] [facility] 2022-04-10 08:29:00 2022-04-16 11:43:00 Hospital Encounter Eduardo, Tatum Epstein, Abdulaziz Sandoval, Nancy Cespedes, [facility] 1..114 350.1.13.10 4.2.7.2.686 [id number] [facility] 2022-04-10 08:29:00 2022-04-16 11:43:00 Inpatient Marv CESPEDES [facility] [id number] [facility] 2021-08-22 23:25:00 2021-08-23 01:50:00 Emergency X Marc JHAVERI [facility] ERT [id number] [facility] 2021-08-22 23:25:00 2021-08-23 01:50:00 Emergency Marc Jhaveri [facility] 1..114 350.1.13.10 4.2.7.2.686 [id number] [facility] 2021-03-25 00:00:00 2021-03-25 00:00:00 Telephone Tania Mueller Critical access hospitale?[facility] 1..114 350.1.13.10 4.2.7.2.686 [id number] [facility] 2021-03-23 00:00:00 2021-03-23 00:00:00 Telephone Greta Rice [facility] [facility] ([facility]) [id number] [id number] [id number] [id number] [facility] 2021-03-23 00:00:00 2021-03-23 00:00:00 Telephone Pcp, Patient Does Not Have A [facility] Randall?[facility] 1.840.114 350.1.13.10 4.2.7.2.686 [id number] [facility] 2021-03-21 18:20:00 2021-03-21 18:20:00 Outpatient R STEPHANIE, ATTENDING [facility] [id number] [facility] 2021-03-20 09:00:00 2021-03-20 09:00:00 Outpatient R BRIANNA, [facility] [id number] [facility] 2020-03-18 11:45:00 2020-03-18 11:45:00 Outpatient thomas [facility] [id number] [facility] 2019-11-27 00:00:00 2019-11-27 00:00:00 Telephone Pcp, Patient Does Not Have A [facility] [id number] [id number] [id number] [id number] [facility] 2019-11-27 00:00:00 2019-11-27 00:00:00 Telephone Pcp, Patient Does Not Have A [facility] [id number] [id number] [id number] [id number] Results Test Description Test Time Test Comments Results Result Co mments Source [facility] [id number] 06:47:00* Test Item Value Reference Range Interpretation Comme nts POCT PREG (test code = 1605) Negative On board controls acceptable with C Line (test code = 3574) Present POCT PREG LOT # (test code = 3575) [id number] POCT PREG TEST DATE ( test code = 3576) 03/08/2024 Lab Interpretation (test cod e = 90116-2) Normal [facility], LATE DISEASE (ABS, KISHAN W/REFLEX TO WB) 2022-04-16 04:33:35* Test Item Value Reference Range Interpretation Comme nts LYME EIA (test code = 27171-5) See_Comment When the Borreli a burgdorferi Abs, Total by KISHAN result is negative, no further testing is done.INTERPRETIVE INFORMATION: Borrelia Burgdorferi Abs,Total by KISHAN ?0.99 RICHI or Less: ...... Negative: Antibody to B. ? burgdorferi not detected. ?1.00 - 1.20 RICHI......... Equivocal: Repeat testing in ? 10-14 days may be helpful. ?1.21 RICHI or Greater: ... Positive: Probable presence of ? antibody to B. burgdorferi ? detected.Performed By: [facility] [place] [id number] Director: Faustino Reid MD, PhD [Automated message] The system which generated this result transmitted reference range: 0.00 - 1.20 RICHI. The reference range was not used to interpret this result as normal/abnormal. [facility]wood[facility]YRO[facility] PEROXIDASE (TPO) [id number] 16:21:03 * Test Item Value Reference Range Interpretation Comments TPO Ab IgG (test code = 6515583353) See_Comment H [Automated message] The system which generated this result transmitted reference range: 0.0 - 100.0 WHO Units. The reference range was not used to interpret this result as normal/abnormal. SANFORD (test code = SANFORD) Interpretation: Negative: ?<= 100 WHO UnitsPositive: ? > [...] as Janee's thyroiditis and Graves'disease. Lab Interpretation (test code = 75728-5) Abnormal [facility]woodCYCLIC CITRULLINATED [id number] 16:04:26* Test Item Value Reference Range Interpretation Comme nts CCP IgG (test code = 4951622419) 2.6 U 0-20 SANFORD (test code = SANFORD) INTERPRETATION: UNITS: Negative <20Weak Positive 20-39Moderate Positive 40-59Strong Positive >=60 A positive result indicates the presence of CCP IgG antibodies and suggests the possibility of RA antibodies and suggests the possibility of SLE. A negative result indicates no CCP IgG antibodies or levels below the cut-off ofthe assay. Lab Interpretation (test code = 43623-2) Normal [facility]woodANTICARDIOLIPIN [id number] 15:58:16 * Test Item Value Reference Range Interpretation Comments Anticardiolipin Antibody IgG (test code = 5409001596) See_Comment [Automated message] The system which generated this result transmitted reference range: 0.0 - 10.0 GPL. The reference range was not used to interpret this result as normal/abnormal . Anticardiolipin Antibody IgM (test code = 4614729685) See_Comment [Automated message] The system which generated this result transmitted reference range: 0.0 - 10.0 MPL. The reference range was not used to interpret this result as normal/abnormal . Anticardiolipin Antibody IgA (test code = 5918248018) See_Comment [Automated message] The system which generated this result transmitted reference range: 0.0 - 15.0 APL. The reference range was not used to interpret this result as normal/abnormal . SANFORD (test code = SANFORD) Interpretation: ? IgG ?IgM ?IgANegative Values: ? <10.0 [...] Thromb Haemost 2006; 4: 2210-4 Lab Interpretation (test code = 20688-9) Normal [facility]woodANTI-B2 GLYCOPROTEIN I [id number] 15:53:57* Test Item Value Reference Range Interpretation Comments Anti-B2 Glycoprotein 1 IgG (test code = 3907107504) See_Comment [Automated message] The system which generated this result transmitted reference range: 0.0 - 20.0 SGU. The reference range was not used to interpret this result as normal/abnormal. Anti-B2 Glycoprotein 1 IgM (test code = 9276154108) See_Comment [Automated message] The system which generated this result transmitted reference range: 0.0 - 20.0 SMU. The reference range was not used to interpret this result as normal/abnormal. Anti-B2 Glycoprotein 1 IgA (test code = 2917196797) See_Comment [Automated message] The system which generated this result transmitted reference range: 0.0 - 20.0 FRANCI. The reference range was not used to interpret this result as normal/abnormal. SANFORD (test code = SANFORD) INTERPRETATION:Values over 20 SGU, SMU, or FRANCI units are considered positive. NOTE:A positive test for anti-B2 Glycoprotein I antibodies may indicate the presence of Antiphospholipid Syndrome. ?Anti-B2 Glycoprotein I antibodies have been associated with thrombosis, recurrent losses and/or thrombocytopenia. TEST PERFORMED AT:[facility] [address] [place] [address], 4.[address] [employer] [facility] [place] [address] Lab Interpretation (test code = 68586-1) Normal [facility]woodHEPATITIS B SURFACE [id number] 15:44:25* Test Item Value Reference Range Interpretation Comme nts HBsAB (test code = 6607937191) Indeterminate HBsAb Semi-Quantitative (test code = 6689462164) mIU/mL SANFORD (test code = SANFORD) Unable to determine if antibody to Hepatitis B Surface Antigen is present at levels consistent with immunity. ?Patient's immune status should be assessed with other clinical information and/or retesting in 4-6 weeks as clinically indicated. ?If any questions, please contact Clinical Chemistry Director solderer electronic at .Interpretati on: ?Hepatitis B Surface Antibody ? Negative - Patient is considered to be not immune to infection with HBV. ? ? Positive - Anti-HBs detected at greater than or equal to 12 mIU/mL. ?Patient is considered to be immune to infection with HBV. ? [facility]woodHBC ANTIBODY (IGM & IGG)2022-04-15 11:48:38* Test Item Value Reference Range Interpretation Comme [facility] HBC (test code = 3304700601) Negative HBC Semi-Quantitative (test code = 9543965278) [facility]woodHCV [id number] 11:48:37* Test Item Value Reference Range Interpretation Comme [facility] HCV Ab (test code = 52015-7) Negative HCV Semi-Quantitative (test code = 87268-8) [facility]woodHEPATIC FUNCTION PANEL (76857) (ALB,T.PRO,BILI T,BU/BC,ALT,AST,ALK PHOS)2022-04-15 11:06:34* Test Item Value Reference Range Interpretation Comme nts TOTAL BILI (test code = 5198911585) 0.2 mg/dL 0.1-1.1 BILI UNCON (test code = 6737676361) 0.1 mg/dL 0.1-1.1 BILI CONJ (test code = 3710345925) 0.0 mg/dL 0-0.3 T PROTEIN (test code = 1793545308) 5.0 g/dL 6.3-8.2 L ALBUMIN (test code = 5454022517) 2.8 g/dL 3.5-5 L ALK PHOS (test code = 8760963335) 54 U/L 34-122 ALTv (test code = 1742-6) 12 U/L 5-35 AST(SGOT) (test code = 4255863768) 18 U/L 13-40 Lab Interpretation (test cod e = 00177-4) Abnormal [facility]woodMAGNESIUM2022 11:06:34* Test Item Value Reference Range Interpretation Comme nts MAGNESIUM (test code = 8113444244) 2.1 mg/dL 1.7-2.4 Lab Interpretation (test cod e = 75559-3) Normal [facility] (NA, K, CL, CO2, GLUCOSE, BUN, CREATININE, CA)2022-04-15 11:06:34* Test Item Value Reference Range Interpretation Comme nts NA (test code = 7443332690) 139 mmol/L 135-145 K (test code = 2696233964) 4.2 mmol/L 3.5-5 CL (test code = 9079639494) 112 mmol/L 98-108 H CO2 TOTAL (test code = 5400477192) 26 mmol/L 23-31 AGAP (test code = 5438591062) 2-16 L BUN (test code = 3111289470) 16 mg/dL 7-23 GLUCOSE (test code = 8242191365) 84 mg/dL 70-110 CREATININE (test code = 9805555119) 0.75 mg/dL 0.5-1.04 CALCIUM (test code = 1944463338) 7.9 mg/dL 8.6-10.6 L eGFR (test code = 9364451929) mL/min/1.73m2 SANFORD (test code = SANFORD) Association of [...] or abnormalities in imaging tests). Lab Interpretation (test code = 70930-6) Abnormal [facility] WITH [id number] 10:25:33* Test Item Value Reference Range Interpretation Comme nts WBC (test code = 6690-2) See_Comment [Automated Optaros] The system which generated this result transmitted reference range: 4.30 - 11.10 10*3/?L. The reference range was not used to interpret this result as normal/abnormal. RBC (test code = 789-8) See_Comment L [Nabsys] The system which generated this result transmitted reference range: 3.93 - 5.25 10*6/?L. The reference range was not used to interpret this result as normal/abnormal. HGB (test code = 718-7) 10.9 g/dL 11.6-15 L HCT (test code = 4544-3) 31.4 % 35.7-45.2 L MCV (test code = 787-2) 89.2 fL 80.6-95.5 MCH (test code = 785-6) 31.0 pg 25.9-32.8 MCHC (test code = 786-4) 34.7 g/dL 31.6-35.1 RDW-SD (test code = 82427-2) 41.0 fL 39-49.9 RDW-CV (test code = 788-0) 12.6 % 12-15.5 PLT (test code = 777-3) See_Comment L [Automated messa ge] The system which generated this result transmitted reference range: 166 - 358 10*3/?L. The reference range was not used to interpret this result as normal/abnormal. MPV (test code = 82812-9) 10.6 fL 9.5-12.9 NRBC/100 WBC (test code = 4142618445) See_Comment [Automated Flared3D ssage] The system which generated this result transmitted reference range: 0.0 - 10.0 /100 WBCs. The reference range was not used to interpret this result as normal/abnormal. NRBC x10^3 (test code = 3465828259) See_Comment [Automated messa ge] The system which generated this result transmitted reference range: 10*3/?L. The reference range was not used to interpret this result as normal/abnormal. GRAN MAT (NEUT) % (test code = 770-8) 58.3 % IMM GRAN % (test code = 7145950836) 0.30 % LYMPH % (test code = 736-9) 33.2 % MONO % (test code = 5905-5) 5.5 % EOS % (test code = 713-8) 2.5 % BASO % (test code = 706-2) 0.2 % GRAN MAT x10^3(ANC) (test code = 9865835674) 3.49 10*3/uL 1.88-7.09 IMM GRAN x10^3 (test code = 0656835096) 0-0.06 LYMPH x10^3 (test code = 731-0) 1.99 10*3/uL 1.32-3.29 MONO x10^3 (test code = 742-7) 0.33 10*3/uL 0.33-0.92 EOS x10^3 (test code = 711-2) 0.15 10*3/uL 0.03-0.39 BASO x10^3 (test code = 704-7) 0.01-0.07 Lab Interpretation (test code = 98325-9) Abnormal [facility]woodProthrombin Time / [id number] 10:25:12* Test Item Value Reference Range Interpretation Comme nts PROTIME PATIENT (test code = 5964-2) See_Comment [Automated LISNRa Treeveo] The system which generated this result transmitted reference range: 10.1 - 12.6 Seconds. The reference range was not used to interpret this result as normal/abnormal. INR (test code = 6301-6) Normal INR <1.1; Warfarin Therapeutic range 2.0 to 3.0 or 2.5 to 3.5, depending upon the indications. Lab Interpretation (test code = 21219-2) Normal [facility] B SURFACE [id number] 21:24:29 * Test Item Value Reference Range Interpretation Comme [facility] HBsAg Semi-Quantitative (sae t code = 5195-3) Negative Negative [facility] METABOLIC PANEL (NA, K, CL, CO2, GLUCOSE, BUN, CREATININE, CA)2022-04-14 01:26:24* Test Item Value Reference Range Interpretation Comme [facility] NA (test code = 2328632164) 141 mmol/L 135-145 K (test code = 1217260039) 3.7 mmol/L 3.5-5 CL (test code = 2947693093) 110 mmol/L 98-108 H CO2 TOTAL (test code = 9809609621) 27 mmol/L 23-31 AGAP (test code = 0494017758) 2-16 BUN (test code = 7870064114) 16 mg/dL 7-23 GLUCOSE (test code = 6637970554) 101 mg/dL 70-110 CREATININE (test code = 2003388774) 0.83 mg/dL 0.5-1.04 CALCIUM (test code = 0963531038) 8.3 mg/dL 8.6-10.6 L eGFR (test code = 4447543320) mL/min/1.73m2 SANFORD (test code = SANFORD) Association of [...] or abnormalities in imaging tests). Lab Interpretation (test code = 13235-0) Abnormal [facility] KingwoodLactic Acid Whole [id number] 01:17:52* Test Item Value Reference Range Interpretation Comme [facility] LACTIC ACID (test code = 6752898866) 1.01 mmol/L 0.5-2.2 Lab Interpretation (test cod e = 05224-2) Normal [facility] KingwoodaPTT2022-09-14 01:09:01* Test Item Value Reference Range Interpretation Comme [facility] APTT Patient (test code = 3173-2) See_Comment [Nabsys] The system which generated this result transmitted reference range: 26 - 36 Seconds. The reference range was not used to interpret this result as normal/abnormal. Lab Interpretation (test code = 61649-5) Normal [facility]woodProthrombin Time / [id number] 01:09:01* Test Item Value Reference Range Interpretation Comme [facility] PROTIME PATIENT (test code = 5964-2) See_Comment [Nabsys] The system which generated this result transmitted reference range: 10.1 - 12.6 Seconds. The reference range was not used to interpret this result as normal/abnormal. INR (test code = 6301-6) Normal INR <1.1; Warfarin Therapeutic range 2.0 to 3.0 or 2.5 to 3.5, depending upon the indications. Lab Interpretation (test code = 38066-7) Normal [facility] WITH [id number] 01:03:39* Test Item Value Reference Range Interpretation Comme nts WBC (test code = 6690-2) See_Comment [Automated messa ge] The system which generated this result transmitted reference range: 4.30 - 11.10 10*3/?L. The reference range was not used to interpret this result as normal/abnormal. RBC (test code = 789-8) See_Comment [Automated messa ge] The system which generated this result transmitted reference range: 3.93 - 5.25 10*6/?L. The reference range was not used to interpret this result as normal/abnormal. HGB (test code = 718-7) 13.4 g/dL 11.6-15 HCT (test code = 4544-3) 39.5 % 35.7-45.2 MCV (test code = 787-2) 91.0 fL 80.6-95.5 MCH (test code = 785-6) 30.9 pg 25.9-32.8 MCHC (test code = 786-4) 33.9 g/dL 31.6-35.1 RDW-SD (test code = 18738-6) 40.8 fL 39-49.9 RDW-CV (test code = 788-0) 12.3 % 12-15.5 PLT (test code = 777-3) See_Comment [Automated LISNRa ge] The system which generated this result transmitted reference range: 166 - 358 10*3/?L. The reference range was not used to interpret this result as normal/abnormal. MPV (test code = 64827-6) 10.8 fL 9.5-12.9 NRBC/100 WBC (test code = 5029606022) See_Comment [Automated me ssage] The system which generated this result transmitted reference range: 0.0 - 10.0 /100 WBCs. The reference range was not used to interpret this result as normal/abnormal. NRBC x10^3 (test code = 2735737614) See_Comment [Automated me ssage] The system which generated this result transmitted reference range: 10*3/?L. The reference range was not used to interpret this result as normal/abnormal. GRAN MAT (NEUT) % (test code = 770-8) 56.8 % IMM GRAN % (test code = 4407578650) 0.10 % LYMPH % (test code = 736-9) 37.1 % MONO % (test code = 5905-5) 4.3 % EOS % (test code = 713-8) 1.2 % BASO % (test code = 706-2) 0.5 % GRAN MAT x10^3(ANC) (test code = 4368152538) 4.67 10*3/uL 1.88-7.09 IMM GRAN x10^3 (test code = 6222553659) 0-0.06 LYMPH x10^3 (test code = 731-0) 3.05 10*3/uL 1.32-3.29 MONO x10^3 (test code = 742-7) 0.35 10*3/uL 0.33-0.92 EOS x10^3 (test code = 711-2) 0.10 10*3/uL 0.03-0.39 BASO x10^3 (test code = 704-7) 0.04 10*3/uL 0.01-0.07 [facility]wood[facility]an[facility] (TTE)2022-04-11 16:43:30* Test Item Value Reference Range Interpretation Comme nts Height (test code = 5886996135) in Weight (test code = 1982929955) lbs Systolic BP (test code = 0886157148) mmHg Diastolic BP (test code = 2899806719) mmHg Heart Rate (test code = 7661602476) bpm BSA (test code = 9254684613) 1.60 m2 Ao root annulus (test code = 4473184608) 2.8 cm Ao root diam (test code = 2639600544) 2.80 cm Aortic root (test code = 6583975959) 2.8 cm LVOT diameter (test code = 5268108161) 1.80 cm LVOT area (test code = 3085881638) 2.60 cm2 LVIDD (test code = 6602841283) 4.50 cm Left Ventricular End Diastolic Volume by Teichholz Method (test code = 8007745) 91.2 mL IVS (test code = 6771636959) 0.71 cm Interventricular Septum Diastolic Thickness by 2D (test code = 3187318) 0.71 cm LVPWD (test code = 1770804652) 0.71 cm PW (test code = 6232111974) 0.71 cm 0.6-1.1 EF(Teich) (test code = 2758071517) 61.00 % LVIDS (test code = 6804232322) 3.00 cm Left Ventricular End Systolic Volume by Teichholz Method (test code = 9812136) 35.6 mL FS (test code = 2142763371) 33 % EF - 2D (test code = 79088853) 61.00 % LA size (test code = 8343824717) 2.9 cm Pulmonic Regurgitant End Max Velocity (test code = 2213083100) 161.8 cm/s LAV(MOD-sp4) (test code = 9173214429) 29.10 mL MV stenosis pressure 1/2 time (test code = 1066917560) 65.3 ms E wave decelartion time (test code = 6404373022) 0.23 s MV Peak E All (test code = 5904146909) 121.5 cm/s MV Peak A All (test code = 2847609851) 43.8 cm/s E/A ratio (test code = 9064843444) ratio MR max PG (test code = 5909000186) 65.00 mm[Hg] MR max all (test code = 4025398561) 401.70 cm/s Mr max all (test code = 5390321024) 401.7 m/s MV Prop V (test code = 2762094181) 44.60 cm/s MV E/e' septal (test code = 7730260761) 19.3 cm/s Tapse (test code = 7297081768) 2.13 cm LVOT stroke volume (test code = 3428704835) 72.90 cm3 LVOT peak all (test code = 4425754562) 144.5 cm/s LVOT mn grad (test code = 1714968577) mmHg AV LVOT peak gradient (test code = 5530914485) mmHg LVOT peak VTI (test code = 3064940293) 28.5 cm LV V1 mean (test code = 5362340394) 104.40 cm/s Aortic valve mean velocity (test code = 7291619407) 112.8 cm/s Ao peak all (test code = 0535020949) 161.3 cm/s Ao VTI (test code = 2958908713) 34.5 cm AV area by cont VTI (test code = 1136927346) 2.1 cm2 AV area peak all (test code = 9806868965) 2.3 cm2 Ao max PG (test code = 3416750123) 10.40 mm[Hg] AV peak gradient (test code = 8792505969) mmHg AV valve area (test code = 1940330146) 2.11 cm2 AV mean gradient (test code = 8127100377) mmHg Radiology Study observation (narrative) (test code = 30466-8) SANFORD (test code = SANFORD) ?Left?Ventricle: Left [...] 2D, color flow Doppler and spectral Doppler. [facility] [id number] 13:36:00* Test Item Value Reference Range Interpretation Comme nts POCT PREG (test code = 1605) Negative On board controls acceptable with C Line (test code = 3574) Present POCT PREG LOT # (test code = 3575) [id number] POCT PREG TEST DATE ( test code = 3576) 06/30/2023 Lab Interpretation (test cod e = 35911-6) Normal [facility] [id number] 06:00:00* Test Item Value Reference Range Interpretation Comme nts POCT PREG (test code = 1605) negative On board controls acceptable with C Line (test code = 3574) positive POCT PREG LOT # (test code = 3575) [id number] POCT PREG TEST DATE ( test code = 3576) 07/31/2022 Lab Interpretation (test cod e = 95410-2) Normal [facility]
[2023-07-28 12:39] LABS: Specific Gravity > 1.030 (1.005-1.030)
[2023-07-28 12:44] LABS: Specific Gravity > 1.030 (1.005-1.030); Urine Bacteria None Seen /HPF (<20); Urine Bilirubin NEGATIVE (Negative); Urine Blood 1+ (Negative); Urine Clarity Extremely Turbid (Clear); Urine Color Yellow (Yellow); Urine Glucose NEGATIVE (Negative); Urine Mucus 4+ /HPF (None Seen); Urine Protein TRACE (Negative); Urine Urobilinogen Normal (Normal); Urine pH 5.5 (5.0-7.0)
[2023-07-28 13:36] LABS: Absolute Lymphocytes (CBC) 0.4 K/uL (0.7-4.9); Hematocrit 35.7 % (36.0-45.0); Lymphocytes % 11.6 % (15.3-44.8); MCV 88.6 fL (80-100); MPV 8.9 fL (7.6-11.3); Platelets 136 thou/uL (152-406); RBC Red Blood Cell Count 4.03 M/uL (3.86-4.86)
[2023-07-28 13:45] LABS: SARS-CoV-2 Antigen Rapid Res Negative (Negative)
[2023-07-28 14:02] LABS: Potassium 3.6 mEq/L (3.5-5.1)
--- NOTE | 2023-07-28 14:26 | ER ---
Nurse's Notes [facility] Name: Marcelina Dodson Age: 32 yrs Sex: Female : 1990 Arrival Date: 07/28/2023 Time: 12:10 Bed 16 Private MD: Diagnosis: Viral infection, unspecified Presentation: 07/28 12:18 Chief complaint: Patient states: Cough, fever, dizziness and body aches onset last cm10 night. Pt states that her kids were sick last week. 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 Coronavirus screen: Vaccine status: Patient reports being unvaccinated. Client denies travel out of the [place] in the last 14 days. Ebola Screen: Patient denies travel to an Ebola-affected area in the 21 days before illness onset. No symptoms or risks identified at this time. Initial Sepsis Screen: Does the patient meet any 2 criteria? No. Patient's initial sepsis screen is negative. Does the patient have a suspected source of infection? No. Patient's initial sepsis screen is negative. Risk Assessment: Do you want to hurt yourself or someone else? Patient reports no desire to harm self or others. Onset of symptoms was July 28, 2023. 12:18 Method Of Arrival: Ambulatory cm10 12:18 Acuity: PEPE 4 cm10 Historical: - Allergies: 12:17 PENICILLINS; cm10 12:17 Tramadol HCl; cm10 - PMHx: 12:17 Lupus erythematosus; POTS; UTI; cm10 - Immunization history:: Adult Immunizations unknown. - Social history:: Smoking status: Reported history of juuling and/or vaping. Screenin:[address] [facility] ED Fall Risk Assessment (Adult) History of falling in the last 3 months, ph including since admission No falls in past 3 months (0 pts) Score/Fall Risk Level 0 - 2 = Low Risk Oriented to surroundings, Maintained a safe environment, Provided non-skid footwear, Hourly rounding (assess needs \T\ fall precautionary measures) done. Abuse screen: Denies threats or abuse. Denies injuries from another. Nutritional screening: On. Tuberculosis screening: No symptoms or risk factors identified. Assessment: 13:31 General: Appears in no apparent distress. comfortable, well groomed, Behavior is calm, ph cooperative, appropriate for age, Reports chills for fever for 12-24 hours. Pain: Complains of pain in headache, body aches. Neuro: Level of Consciousness is awake, alert, obeys commands, Oriented to person, place, time, situation, Reports headache. Cardiovascular: Capillary refill < 3 seconds in bilateral fingers Patient's skin is warm and dry. Respiratory: Airway is patent Respiratory effort is even, unlabored, Respiratory pattern is regular, symmetrical. GI: Reports nausea, Patient currently denies abdominal pain, vomiting. Derm: Skin is pink, warm \T\ dry. Musculoskeletal: Circulation, motion, and sensation intact. Range of motion: intact in all extremities. Vital Signs: 12:18 BP 122 / 77; Pulse 97; Resp 18; Temp 99.5; Pulse Ox 100% on R/A; Weight 61.23 kg; cm10 Height 5 ft. 4 in. ; Pain 10/10; 12:39 Temp 100.6(O); zm 13:33 BP 113 / 68; Pulse 91; Resp 18; Pulse Ox 99% on R/A; ph 12:18 Body Mass Index 23.17 (61.23 kg, 162.56 cm) cm10 12:18 Pain Scale: Adult cm10 ED Course: 12:15 Patient arrived in ED. mg5 12:15 Merlin Singleton MD is Attending Physician. ec2 12:19 Triage completed. cm10 12:19 Arm band placed on Patient placed in an exam room, on a stretcher. cm10 12:31 Pricilla López, RN is Primary Nurse. ph 12:34 Test, Urine Sent. zm 12:34 UAM Sent. zm 13:32 Initial lab(s) drawn, by me, sent to lab. COVID swab sent to lab. Flu and/or RSV swab ph sent to lab. Inserted saline lock: 22 gauge in right antecubital area, using aseptic technique. Blood collected. 13:33 Patient has correct armband on for positive identification. Bed in low position. Call ph light in reach. Side rails up X2. Pulse ox on. NIBP on. 13:33 Flu Sent. ph 13:33 SARS RAPID Sent. ph 13:33 Strep Sent. ph 13:33 CBC with Diff Sent. ph 13:33 BMP Sent. ph 13:34 No provider procedures requiring assistance completed. ph 14:42 IV discontinued, intact, bleeding controlled, No redness/swelling at site. hb Administered Medications: 13:21 Drug: metoCLOPramide IVP 10 mg IVP once; over 1 to 2 minutes Route: IVP; Site: right ph antecubital; 13:21 Drug: Acetaminophen PO 1000 mg PO once Route: PO; ph 13:22 Drug: NS 0.9% IV 1000 ml IV at 1 bolus Per protocol; 1000 mL bolus Route: IV; Rate: 1 ph bolus; Site: right antecubital; 13: Drug: Ketorolac IVP 15 mg IVP once Route: IVP; Site: right antecubital; ph Medication: 13:33 VIS not applicable for this client. ph Outcome: 14:25 Discharge ordered by . ec2 14:42 Discharged to home ambulatory, with significant other, hb 14:42 Condition: stable 14:42 Discharge instructions given to patient, Instructed on discharge instructions, follow up and referral plans. medication usage, Demonstrated understanding of instructions, follow-up care, medications, Prescriptions given X 1, 14:43 Patient left the ED. hb Signatures: Pricilla López RN RN Davina Moy RN RN hb Martinez, Zaina zm Martinez, Clarissa, RN RN cm10 Trinity Wooten mg5 Merlin Singleton MD MD ec2
--- NOTE | 2023-07-28 14:26 | EDPHYS ---
Physician Documentation [facility] Name: Marcelina Dodson Age: 32 yrs Sex: Female : 1990 Arrival Date: 07/28/2023 Time: 12:10 Bed 16 Private MD: ED Physician Merlin Singleton HPI: 07/28 12:24 This 32 yrs old Female presents to ER via Ambulatory with complaints of Flu ec2 Symptoms. 12:24 Patient arrives today for URI signs and symptoms. Patient with exposure to influenza. ec2 Patient reports cough and cold symptoms as well as decreased p.o. intake and sore throat. Patient denies any vomiting or diarrhea. Patient reports no urinary complaints.. Historical: - Allergies: 12:17 PENICILLINS; cm10 12:17 Tramadol HCl; cm10 - PMHx: 12:17 Lupus erythematosus; POTS; UTI; cm10 - Immunization history:: Adult Immunizations unknown. - Social history:: Smoking status: Reported history of juuling and/or vaping. ROS: 12:24 Constitutional: as per hpi ec2 Exam: 12:24 Constitutional: GEN: NAD Head: atraumatic Eyes: EOMI Ears: External ears are normal. ec2 Mouth: No posterior oropharyngeal erythema or exudates appreciated. CV: regular rate LUNGS: no respiratory distress, no wheezes, no rales, no rhonchi ABD: non-distended SKIN: no evidence of rashes MSK: no evidence of trauma NEURO: moves all extremities equally Vital Signs: 12:18 BP 122 / 77; Pulse 97; Resp 18; Temp 99.5; Pulse Ox 100% on R/A; Weight 61.23 kg; cm10 Height 5 ft. 4 in. ; Pain 10/10; 12:39 Temp 100.6(O); zm 13:33 BP 113 / 68; Pulse 91; Resp 18; Pulse Ox 99% on R/A; ph 12:18 Body Mass Index 23.17 (61.23 kg, 162.56 cm) cm10 12:18 Pain Scale: Adult cm10 MDM: 12:24 Patient medically screened. ec2 12:24 Data reviewed: vital signs. ED course: Patient arrives today for evaluation of URI ec2 symptoms symptoms. Examination remarkable for well-appearing nontoxic dividual is otherwise in no acute distress. Will obtain viral swabs, blood work and treat the patient symptoms. Currently suspect viral process, possible strep pharyngitis, low suspicion for pneumonia.. 12:48 ED course: Urine is noninfectious appearing. Ketones present. negative. . ec2 12:48 ED course: Of note patient does meet SIRS criteria with the fever and the heart rate, I ec2 have a suspicion for a viral process. Low suspicion for bacterial process, currently defer septic management. Additionally no source of bacterial pathology identified.. 13:47 ED course: CBC is reassuring. Negative COVID testing. . ec2 14:05 ED course: Metabolic profile is reassuring. . ec2 14:25 ED course: On reassessment patient remains well-appearing in no acute distress. Will ec2 discharge home and follow the primary care doctor. Suspect viral infection.. 12 12:22 Order name: Strep cm10 07/28 12:23 Order name: UAM; Complete Time: 12:48 ec2 07/28 12:23 Order name: Test, Urine; Complete Time: 12:48 ec2 07/28 12:23 Order name: CBC with Diff; Complete Time: 13:47 ec2 07/28 12:23 Order name: BMP; Complete Time: 14:05 ec2 07/28 13:24 Order name: SARS RAPID; Complete Time: 13:47 ph 07/28 13:24 Order name: Flu; Complete Time: 14:22 ph 07/28 14:16 Order name: Throat Culture EDMS Administered Medications: 13:21 Drug: metoCLOPramide IVP 10 mg IVP once; over 1 to 2 minutes Route: IVP; Site: right ph antecubital; 13:21 Drug: Acetaminophen PO 1000 mg PO once Route: PO; ph 13:22 Drug: NS 0.9% IV 1000 ml IV at 1 bolus Per protocol; 1000 mL bolus Route: IV; Rate: 1 ph bolus; Site: right antecubital; 13:22 Drug: Ketorolac IVP 15 mg IVP once Route: IVP; Site: right antecubital; ph Disposition Summary: 07/28/23 14:25 Discharge Ordered Notes: Location: Home ec2 Condition: Stable ec2 Diagnosis - Viral infection, unspecified ec2 Followup: ec2 - With: Private Physician - When: - Reason: Recheck today's complaints Discharge Instructions: - Discharge Summary Sheet ec2 - Viral Illness, Adult ec2 Forms: - Medication Reconciliation Form ec2 - Thank You Letter ec2 - Antibiotic Education ec2 - Prescription Opioid Use ec2 - Patient Portal Instructions ec2 - Leadership Thank You Letter ec2 Prescriptions: - Compazine 10 mg Oral Tablet - take 1 tablet ORAL route every 8 hours As needed; 20 tablet; Refills: 0, ec2 Product Selection Permitted Signatures: Dispatcher [employer] Pricilla Veloz RN RN Cathleen Martin RN RN cm10 Merlin Singleton MD MD ec2
[2023-07-28 16:19] VITALS: BP 113/68; TEMP 100.6; O2SAT 99
== END ==
LOC: ER 12:10
DX: B34.9 Viral infection, unspecified (principal); Z11.52 Encounter for screening for COVID-19; Z88.0 Allergy status to penicillin; Z88.5 Allergy status to narcotic agent
CPT/HCPCS: 36415; 80048; 81001; 81025; 85025; 87070; 87081; 87804; 87811; 96374; 96375; 99284; J2765; J7030